=== PATIENT | female | born 1985 | race Two or more races ===

== ENCOUNTER 2022-01-25 19:03 | Inpatient (IN) | payer OTHER, SELFPAY ==
--- NOTE | ~2022-01-25 | CT_ITS ---
EXAMINATION: CT ABDOMEN AND PELVIS WITH CONTRAST CLINICAL INFORMATION: Fever despite antibiotics. COMPARISON: Previous CT of the abdomen and pelvis and pelvic ultrasound from earlier this month TECHNIQUE: Multidetector volumetric images were obtained from the superior aspect of the liver through the pubic symphysis following administration 85 mL of Omnipaque 350 intravenous contrast. Sagittal and coronal reformatted images were obtained on the technologist's workstation. Oral contrast: Yes This CT examination was performed using dose optimization techniques as appropriate, variously including the following: *Automated exposure control *Adjustment of mA and/or kV according to patient size (this includes techniques or standardized protocols for targeted exams where dose is matched to indication/reason for exam; i.e. extremities or head) *Use of iterative reconstruction technique DLP: 575 mGy-cm FINDINGS: LUNG BASES: The visualized lung bases are unremarkable. LIVER, GALLBLADDER, AND BILIARY TREE: The liver is normal in size, shape, and attenuation. No focal hepatic lesion or biliary ductal dilatation is present. The gallbladder is unremarkable with no evidence of radiopaque gallstones, gallbladder wall thickening, or obvious pericholecystic inflammatory changes. PANCREAS: Unremarkable. SPLEEN: Unremarkable. ADRENAL GLANDS: Unremarkable. KIDNEYS AND URETERS: There is increasing fullness of both collecting systems and proximal ureters. No stone. BLADDER: Unremarkable. GASTROINTESTINAL TRACT: Stool throughout the colon suggestive of constipation. The small and large bowel are otherwise unremarkable. The appendix is unremarkable. ABDOMINAL WALL: No significant hernia is appreciated. LYMPH NODES: Normal. VASCULAR: Unremarkable. PELVIC VISCERA: There is an IUD in the uterus. There are bilateral complex cystic adnexal lesions. There is question of right adnexal complex cystic area measuring up to 5.5 x 7.8 cm versus loculated fluid in the posterior cul-de-sac. This was seen greater in the left posterior cul-de-sac on 01/25/2022 exam favoring complex loculated ascites. There is diffuse stranding of the fat in the pelvis including the retroperitoneum and presacrals regions. Given history of fever this probably represents PID. OSSEOUS STRUCTURES: Unremarkable. CT/CT abdomen pelvis w IV con IMPRESSION: Bilateral complex cystic adnexal lesions and probable loculated complex fluid in the pelvis in the posterior cul-de-sac, now greater on the right. Diffuse fat stranding in the pelvis. This probably represents PID given history of fever. IUD in the uterus. Increasing prominence of the bilateral renal collecting systems and both ureters. Constipation. Fleischner guidelines were followed.
--- NOTE | ~2022-01-25 | US_ITS ---
EXAMINATION: US PELVIS CLINICAL INFORMATION: Hemorrhage in the pelvis. Question ruptured hemorrhagic cyst on CT COMPARISON: CT abdomen and pelvis 01/25/2022 TECHNIQUE: Ultrasound of the pelvis is performed using transabdominal transducers along with Doppler. Patient refused transvaginal ultrasound.. FINDINGS: Uterus: The uterus is anteverted, anteflexed and measures 10.8 cm in length, 6.2 mL in AP and 4.7 cm in transverse dimension. The double wall endometrial thickness is not visualized due to an echogenic IUD in place. The uterus is smooth in contour and has normal myometrial echogenicity. No visible fibroid. Adnexa: Right ovary measures 7.3 x 3.0 x 2.4 cm volume 27.3 mL. Small follicular cysts seen in the right ovary. The left ovary is not seen. There is moderate free fluid in and solid components likely hemorrhagic in the cul-de-sac. US/US pelvic complete IMPRESSION: 1. Unremarkable uterus and right ovary. 2. The left ovary is not seen. 3. Moderate free fluid in the cul-de-sac with solid components likely hemorrhage. Differential diagnosis includes ruptured left ovarian cyst, ruptured ectopic or severe PID. Correlate if patient is HCG positive. If patient has persistent pain without resolution, a expiratory laparoscopy can be performed at physician's discretion.
--- NOTE | ~2022-01-25 | CT_ITS ---
EXAMINATION: CT ABDOMEN AND PELVIS WITH CONTRAST CLINICAL INFORMATION: Pelvic abscess drain. Now presents with persistent pain COMPARISON: CT abdomen pelvis 01/31/2022. TECHNIQUE: Multidetector volumetric images were obtained from the superior aspect of the liver through the pubic symphysis following administration oral and 85 mL of Omnipaque 350 intravenous contrast. Sagittal and coronal reformatted images were obtained on the technologist's workstation. Oral contrast: No This CT examination was performed using dose optimization techniques as appropriate, variously including the following: *Automated exposure control *Adjustment of mA and/or kV according to patient size (this includes techniques or standardized protocols for targeted exams where dose is matched to indication/reason for exam; i.e. extremities or head) *Use of iterative reconstruction technique DLP: 932 mGy-cm FINDINGS: LUNG BASES: The lung bases are clear. Heart size is normal. LIVER, GALLBLADDER, AND BILIARY TREE: The liver is normal in size, shape, and attenuation. No focal hepatic lesion or biliary ductal dilatation is present. The gallbladder is unremarkable with no evidence of radiopaque gallstones, gallbladder wall thickening, or obvious pericholecystic inflammatory changes. PANCREAS: Unremarkable. SPLEEN: Unremarkable. ADRENAL GLANDS: Unremarkable. KIDNEYS AND URETERS: The kidneys are normal in size, shape, and attenuation. No hydronephrosis, hydroureter, or calculi seen. No perinephric stranding. There are bilateral extrarenal kidney pelvises. BLADDER: Unremarkable. GASTROINTESTINAL TRACT: There is oral contrast seen throughout the colon and small bowel loops without obstruction or extravasation of contrast. Appendix is not seen. ABDOMINAL WALL: No significant hernia is appreciated. LYMPH NODES: Normal. VASCULAR: Unremarkable. PELVIC VISCERA: Previously visualized large loculated complex predominantly right-sided cystic adnexa collection has resolved. There is a percutaneously placed right pelvic drainage catheter area has no fluid collection at this time. There is presacral soft tissues thickening. There is multiloculated small areas of hypodensities in the left adnexa likely loculated fluid or collection, similar to previous study. It has not increased. IUD has been removed.. OSSEOUS STRUCTURES: Unremarkable. CT/CT abdomen pelvis w IV con IMPRESSION: Complex cystic abscess collection the right adnexa and a right pelvis has completely been drained status post placement of percutaneous drainage catheter via right buttock. [id number] presacral soft tissue thickening and multiple small hypodense cystic areas in left adnexa are stable and unchanged. IUD has been removed. Fleischner guidelines were followed.
--- NOTE | ~2022-01-25 | CT_ITS ---
EXAMINATION: CT ABDOMEN AND PELVIS WITH CONTRAST CLINICAL INFORMATION: low abd pain N/V COMPARISON: None. TECHNIQUE: Multidetector volumetric imaging was performed from the superior aspect of the liver through the pubic symphysis following administration of 100 mL Omnipaque 300 intravenous contrast. Sagittal and coronal reformatted images were obtained on the technologist workstation.. This CT examination was performed using dose optimization techniques as appropriate, variously including the following: *Automated exposure control *Adjustment of mA and/or kV according to patient size (this includes techniques or standardized protocols for targeted exams where dose is matched to indication/reason for exam; i.e. extremities or head) *Use of iterative reconstruction technique DLP: 758 mGy-cm FINDINGS: LUNG BASES: The visualized lung bases are unremarkable. LIVER, GALLBLADDER, AND BILIARY TREE: The liver is normal in size, shape, and attenuation. No focal hepatic lesion or biliary ductal dilatation is present. The gallbladder is unremarkable with no evidence of radiopaque gallstones, gallbladder wall thickening, or obvious pericholecystic inflammatory changes. PANCREAS: Unremarkable. SPLEEN: Unremarkable. ADRENAL GLANDS: Unremarkable. KIDNEYS AND URETERS: The kidneys are normal in size, shape, and attenuation. No hydronephrosis, hydroureter, or calculi seen. No perinephric stranding. BLADDER: Decompressed GASTROINTESTINAL TRACT: Rectosigmoid colon is decompressed and difficult to evaluate. No obstructive changes to the bowel ABDOMINAL WALL: No significant hernia is appreciated. LYMPHOVASCULAR STRUCTURES: No lymphadenopathy. The aorta is unremarkable. PELVIC VISCERA: There is a complex heterogeneous attenuation to the enlarged 4.7 x 3.9 cm left ovary with surrounding complex fluid suggesting possibly ruptured hemorrhagic cyst. There is complex fluid in the dependent pelvis which measures slightly more than simple fluid also suggesting a possible hemorrhagic cyst rupture. Physiologic changes in the contralateral right ovary. This is retroverted and retroflexed with IUD in place OSSEOUS STRUCTURES: Unremarkable. CT/CT abdomen pelvis w IV con IMPRESSION: Heterogeneous attenuation to the enlarged left ovary with surrounding complex fluid suggesting a ruptured hemorrhagic cyst. There is also complex fluid in the dependent pelvis which measures slightly more than simple fluid which could be seen with a ruptured hemorrhagic cyst as well. Clinical correlation would be needed. This critical result was discussed with HIMA Mars at 01/25/2022 9:17 PM and it was ascertained that the content and urgency of the report was understood at the time of direct communication.
--- NOTE | ~2022-01-25 | CT_ITS ---
PROCEDURE: CT GUIDED ABSCESS DRAINAGE AND CATHETER PLACEMENT CLINICAL INFORMATION: Pelvic abscess. COMPARISON: None TECHNIQUE: Following explaining the CT fluoroscopy-guided pelvic abscess drainage and catheter placement procedure, and the benefits and risks, a written consent was obtained. The patient was placed in a semiprone position and preliminary CT imaging was obtained. An optimal site was selected, placing a marker along the right paramidline posterior buttock. An optimal marker was selected, marked on the skin and the area was cleaned and draped in the usual sterile manner with 2% chlorhexidine solution. 1% lidocaine was injected at the puncture site and subcutaneous region. Through a small skin incision, a 20-gauge Chiba needle was advanced into the right pelvic abscess under fluoroscopy. The stylet was withdrawn and a thin guidewire was advanced and the needle withdrawn. Over the guidewire, a 5-[place] dilator sheath was advanced and the dilator and the thin guidewire were removed. A 0.035 J-wire was advanced over the 5-[place] sheath and the sheath removed. A 10.5-[place] APD catheter was advanced over the guidewire. After obtaining images and revealing the catheter tip within the right abscess, the guidewire and the stiffener were withdrawn and a pigtail was formed. Repeat CT imaging was obtained for documentation. The catheter was connected to a suction bulb with a connecting cannula. The catheter was anchored to the skin with 3 0 nonabsorbable sutures. A sterile dressing was applied post procedure. Conscious sedation was provided by the anesthesia department. This CT examination was performed using dose optimization techniques as appropriate, variously including the following: *Automated exposure control *Adjustment of mA and/or kV according to patient size (this includes techniques or standardized protocols for targeted exams where dose is matched to indication/reason for exam; i.e. extremities or head) *Use of iterative reconstruction technique DLP: 787 mGy-cm FINDINGS: There is a moderate to large pelvic abscess, predominantly on the right side, extending to the left pelvis. A 10.5-[place] APD catheter was placed within the right pelvic abscess and connected to a suction bulb. Approximately 110 mL of clear pus was drained initially on the table from the bulb. Part of this pus was sent to the lab for Gram stain, culture and anaerobic culture. CT/CT guided drainage IMPRESSION: Successful CT fluoroscopy-guided drainage and subsequent placement of a 10.5 [place] APD catheter in the right pelvis.
--- NOTE | 2022-01-25 19:10 | ED.ABDPAIN ---
HPI - Abdominal Pain General Chief Complaint: Abdominal Pain Stated Complaint: abdominal pain/syncope Time Seen by Provider: 01/25/22 19:06 Source: patient Mode of arrival: wheelchair Limitations: no limitations History of Present Illness HPI narrative: 36 yo female here with lower abdominal pain x 5 days. Today worsened pain with vomiting. HPI limited as on arrival patient had a syncopal episode which was witnessed with no head strike. On my assessment she is actively vomiting, complaining of abdominal pain. Related Data Allergies Allergy/AdvReac Type Severity Reaction Status Date / Time strawberry [STRAWBERRY] Allergy Unknown ITCHING Unverified 11/25/19 15:46 Review of Systems Review of Systems Yes all other systems are reviewed and are negative Constitutional: Reports no additional constitutional complaints, Denies body ache(s), Denies chills, Denies fever(s), Denies headache(s) and Denies weakness Eyes: Reports no additional eye complaints and Denies change in vision Reports system reviewed and no additional complaints, except as documented, Reports dizziness, Denies headache(s), Denies nasal congestion, Denies nasal discharge and Denies neck pain Cardiovascular: Reports no additional cardiovascular complaints, Denies chest pain, Reports syncope, Denies leg edema and Denies dyspnea Respiratory: Reports no additional respiratory complaints, Denies cough and Denies dyspnea Gastrointestinal: Reports no additional gastrointestinal complaints, Reports abdominal pain, Reports diarrhea, Reports nausea and Reports vomiting Genitourinary: Reports no additional female genitourinary complaints and Denies urinary incontinence Musculoskeletal: Reports no additional musculoskeletal complaints, Denies back pain, Denies arthralgias, Denies joint swelling, Denies neck pain, Denies numbness and Denies tingling Skin/Breast: Reports system reviewed and no additional complaints, except as docu and Denies rash Reports system reviewed and no additional complaints, except as documented, Reports dizziness, Reports syncope, Denies headache(s), Denies numbness, Denies tingling and Denies weakness [facility] Past Medical History Attestation statement: The following information was validated with the patient. Source: old records reviewed and nursing notes reviewed Social History Social History Advance Directives: No Advance Directives Information Provided: No Physical Exam ED Vital Signs: Vital Signs - 24 hr 01/25/22 19:17 01/26/22 00:21 Temperature 97.9 F Pulse Rate 74 94 Respiratory Rate 16 16 Blood Pressure 119/65 160/79 H Pulse Oximetry 100 Oxygen Delivery Method Room Air BMI result Body Mass Index 26.6 Const Other: +in pain General: alert Orientation/consciousness: patient oriented x3 Limitations: no limitations HENAR Head: Yes normal to inspection Ears: hearing grossly normal bilaterally Eyes General: appearance normal, both eyes and all related structures Pupils: Equal, round and reactive pupils present Neck Neck: Yes normal visual inspection, Yes full ROM, Yes no lymphadenopathy and Yes no meningeal signs Chest Chest palpation & inspection: normal inspection of the chest Resp Effort & Inspection: normal respiratory effort Auscultation: clear to auscultation bilaterally Cardio Rate: regular rate Rhythm: regular rhythm Peripheral pulses: Peripheral pulses 2+ throughout GI Inspection: Yes normal to inspection Palpation (GI): Soft to palpation and Tenderness to palpation present (GI) in the LLQ and in the RLQ Other: LIBERTAD ovalle at bedside Pelvic exam is limited d/t pain. Pt barley able to tolerate speculum being inserted for specimens. Could not tolerate bimanual so exam is limited General: Yes no CVA tenderness External Female Exam: normal external appearance Speculum Exam - Vagina: normal appearance of the vagina Speculum Exam - Cervix: normal appearance of the cervix Back/Spine/Pelvis Back: no CVA tenderness Thoracic/Lumbar Spine: thoracic and lumbar spine normal to inspection Skin General skin exam: no rashes or lesions noted Neuro General: patient oriented x3, moves all extremities and no meningeal signs Cranial nerves: Yes Equal, round and reactive pupils present Cognition (Neuro): normal cognition Extrem General: Yes normal to inspection Course Course Course Narrative: CT shows MPRESSION: Heterogeneous attenuation to the enlarged left ovary with surrounding complex fluid suggesting a ruptured hemorrhagic cyst. There is also complex fluid in the dependent pelvis which measures slightly more than simple fluid which could be seen with a ruptured hemorrhagic cyst as well. Clinical correlation would be needed. ? -consider ectopic . Beta quant is negative. IUD in place. Likely ruptured hemorrhagic cyst. Mild microcytic anemia. No previous for comparison. Plan for pain control. Labs are stable. Reevaluation(s) Reevaluation #1: Patient has required morphine, toradol and dilaudid with continued pain. Will need admit for pain control. Will discuss with gynecology Reevaluation #2: 0100-Spoke to Dr Sheikh. Recommend obtain CBC now. Reevaluation #3: 0120-mildly decreased hemoglobin/hematocrit although not much different from previous. Spoke to gynecology. Recommended admit patient. Keep patient NPO. Repeat CBC in 6 hours. Continue with pain control. Additional Reevaluation(s): 0125-Spoke to medicine dr patel who accepted admission. Medications Administered Discontinued Medications Generic Name Dose Route Start Last Admin Trade Name Freq PRN Reason Stop Dose Admin Hydromorphone HCl 1 mg 01/25/22 22:53 01/25/22 22:59 Hydromorphone Hcl 1 Mg/Ml Syringe IVPUSH 01/25/22 22:54 1 mg ONCE ONE Administration Protocol Hydromorphone HCl 1 mg 01/26/22 00:13 01/26/22 00:18 Hydromorphone Hcl 1 Mg/Ml Syringe IVPUSH 01/26/22 00:14 1 mg ONCE ONE Administration Protocol Sodium Chloride 1,000 mls @ 999 mls/hr 01/25/22 19:15 01/26/22 01:16 Ns IV 01/25/22 20:15 Infused .Q1H1M HUNG Infusion Iohexol 100 ml 01/25/22 20:35 01/25/22 20:35 Iohexol 350 Mg/Ml 100 Ml Infus..Btl IV 01/25/22 20:36 100 ml ONCE ONE Administration Ketorolac Tromethamine 30 mg 01/25/22 21:34 01/25/22 22:15 Ketorolac Tromethamine 30 Mg/Ml Vial IVPUSH 01/25/22 21:35 30 mg ONCE ONE Administration Morphine Sulfate 4 mg 01/25/22 19:48 01/25/22 20:19 Morphine Sulfate 4 Mg/Ml Cartridge IVPUSH 01/25/22 19:49 4 mg ONCE ONE Administration Protocol Ondansetron HCl 4 mg 01/25/22 19:05 01/25/22 19:19 Ondansetron Hcl 4 Mg/2 Ml Vial IVPUSH 01/25/22 19:06 4 mg ONCE ONE Administration MDM - Abdominal Pain MDM Narrative Medical decision making narrative: 36-year-old female here with 5 days of lower abdominal pain with vomiting with a witnessed syncopal episode with no head strike or additional trauma. On exam tender to the left lower and right lower quadrant. Patient actively vomiting. History of present illness is limited due to patient's pain and vomiting status. Vitals are stable. Will check labs, UA, CT, COVID screen Consider syncopal episode secondary to orthostatic hypotension, ectopic , appendicitis, gastroenteritis Medical Records Attestation: I reviewed the patient's medical records. Lab Data Attestation: I reviewed the patient's lab results. Result diagrams: 01/26/22 01:02 01/25/22 19:16 Labs: Lab Results 01/25/22 01/25/22 01/25/22 Range/Units 19:16 19:16 19:16 WBC 11.6 H (4.8-10.8) X10*3/uL RBC 4.58 (4.20-5.50) X10*6/uL Hgb 9.1 L (12.0-16.0) g/dl Hct 32.8 L (37.0-47.0) % MCV 71.6 L (80.0-98.0) fL MCH 19.9 L (27.0-33.0) pg MCHC 27.7 L (31.0-35.0) g/dl RDW 17.2 H (11.0-16.0) % Plt Count 406 H (160-400) X10*3/uL MPV 9.1 L (9.4-12.3) fL Immature Gran % (Auto) 0.4 (0.0-0.4) % Neut % (Auto) 76.1 H (45-73) % Lymph % (Auto) 17.2 L (20-40) % [place] % (Auto) 5.2 (2-11) % Eos % (Auto) 0.8 (0-4) % Baso % (Auto) 0.3 (0-2) % Lymph # (Auto) 2.0 (1.2-4.9) X10*3/uL [place] # (Auto) 0.6 (0.1-1.2) X10*3/uL Eos # (Auto) 0.1 (0.0-0.4) X10*3/uL Baso # (Auto) 0.0 (0.0-0.2) X10*3/uL Abs Immat Gran (auto) 0.05 H (0.00-0.03) X10*3/uL Absolute Neuts (auto) 8.8 H (2.0-8.3) x10*3/uL Absolute Nucleated RBC 0.000 (0.0-0.012) X10*3/uL Nucleated RBC % (auto) 0.0 (0.0-0.2) /100WBC PT 13.0 (10.0-13.1) SEC INR 1.1 (0.9-1.1) Sodium 141 (135-145) mmol/L Potassium 3.6 (3.3-5.1) mmol/L Chloride 103 (96-108) mmol/L Carbon Dioxide 27 (22-29) mmol/L Anion Gap 15 (12-20) BUN 11 (9-16) mg/dL Creatinine 0.77 (0.5-1.4) mg/dL Estim Creat Clear Calc 117.6 Estimated GFR > 60 Random Glucose 112 (60-115) mg/dL Lactic Acid (0.5-2.0) mmol/L Calcium 9.2 (8.4-10.2) mg/dL Magnesium 1.8 (1.6-2.6) mg/dL Total Bilirubin 0.2 (0.0-1.0) mg/dL Direct Bilirubin < 0.2 (0.0-0.5) mg/dL AST 12 (5-31) U/L ALT 9 (0-31) U/L Alkaline Phosphatase 92 (39-117) U/L Total Protein 7.6 (6.5-8.0) g/dL Albumin 4.1 (3.5-5.0) g/dL Lipase 14 (8-78) U/L Beta HCG, Quant < 2 mIU/mL Urine Color Urine Appearance Urine pH (5.0-9.0) Ur Specific [place] (1.005-1.025) Urine Protein (Neg-Trace) mg/dL Urine Glucose (UA) (Negative) mg/dL Urine Ketones (Negative) mg/dL Urine Blood (Negative) Urine Nitrite (Negative) Ur Leukocyte Esterase (Negative) Urine RBC (0-2) /HPF Urine WBC (0-5) /HPF Ur Squamous Epith Cells (0-2) /HPF Urine Bacteria (None Seen) Hyaline Casts (0-2) /LPF Urine Opiates Screen (Not Detect) Urine Fentanyl Screen (Not Detect) Ur Barbiturates Screen (Not Detect) Ur Phencyclidine Scrn (Not Detect) Ur Amphetamines Screen (Not Detect) U Benzodiazepines Scrn (Not Detect) Urine Cocaine Screen (Not Detect) U Marijuana (THC) Screen (Not Detect) COVID-19 (TEJA) (Negative) COVID-19 Clin Com 01/25/22 01/25/22 01/25/22 Range/Units 19:16 19:17 22:37 WBC (4.8-10.8) X10*3/uL RBC (4.20-5.50) X10*6/uL Hgb (12.0-16.0) g/dl Hct (37.0-47.0) % MCV (80.0-98.0) fL MCH (27.0-33.0) pg MCHC (31.0-35.0) g/dl RDW (11.0-16.0) % Plt Count (160-400) X10*3/uL MPV (9.4-12.3) fL Immature Gran % (Auto) (0.0-0.4) % Neut % (Auto) (45-73) % Lymph % (Auto) (20-40) % [place] % (Auto) (2-11) % Eos % (Auto) (0-4) % Baso % (Auto) (0-2) % Lymph # (Auto) (1.2-4.9) X10*3/uL [place] # (Auto) (0.1-1.2) X10*3/uL Eos # (Auto) (0.0-0.4) X10*3/uL Baso # (Auto) (0.0-0.2) X10*3/uL Abs Immat Gran (auto) (0.00-0.03) X10*3/uL Absolute Neuts (auto) (2.0-8.3) x10*3/uL Absolute Nucleated RBC (0.0-0.012) X10*3/uL Nucleated RBC % (auto) (0.0-0.2) /100WBC PT (10.0-13.1) SEC INR (0.9-1.1) Sodium (135-145) mmol/L Potassium (3.3-5.1) mmol/L Chloride (96-108) mmol/L Carbon Dioxide (22-29) mmol/L Anion Gap (12-20) BUN (9-16) mg/dL Creatinine (0.5-1.4) mg/dL Estim Creat Clear Calc Estimated GFR Random Glucose (60-115) mg/dL Lactic Acid 2.0 (0.5-2.0) mmol/L Calcium (8.4-10.2) mg/dL Magnesium (1.6-2.6) mg/dL Total Bilirubin (0.0-1.0) mg/dL Direct Bilirubin (0.0-0.5) mg/dL AST (5-31) U/L ALT (0-31) U/L Alkaline Phosphatase (39-117) U/L Total Protein (6.5-8.0) g/dL Albumin (3.5-5.0) g/dL Lipase (8-78) U/L Beta HCG, Quant mIU/mL Urine Color Yellow Urine Appearance Clear Urine pH 6.5 (5.0-9.0) Ur Specific [place] >= 1.030 H (1.005-1.025) Urine Protein 100 (2+) H (Neg-Trace) mg/dL Urine Glucose (UA) Negative (Negative) mg/dL Urine Ketones Negative (Negative) mg/dL Urine Blood Moderate (2+) H (Negative) Urine Nitrite Negative (Negative) Ur Leukocyte Esterase Trace H (Negative) Urine RBC >20 H (0-2) /HPF Urine WBC 11-20 (0-5) /HPF Ur Squamous Epith Cells >20 (0-2) /HPF Urine Bacteria None Seen (None Seen) Hyaline Casts 0-2 (0-2) /LPF Urine Opiates Screen (Not Detect) Urine Fentanyl Screen (Not Detect) Ur Barbiturates Screen (Not Detect) Ur Phencyclidine Scrn (Not Detect) Ur Amphetamines Screen (Not Detect) U Benzodiazepines Scrn (Not Detect) Urine Cocaine Screen (Not Detect) U Marijuana (THC) Screen (Not Detect) COVID-19 (TEJA) Negative (Negative) COVID-19 Clin Com See Note 01/25/22 01/26/22 Range/Units 22:37 01:02 WBC 14.6 H (4.8-10.8) X10*3/uL RBC 4.23 (4.20-5.50) X10*6/uL Hgb 8.6 L (12.0-16.0) g/dl Hct 30.3 L (37.0-47.0) % MCV 71.6 L (80.0-98.0) fL MCH 20.3 L (27.0-33.0) pg MCHC 28.4 L (31.0-35.0) g/dl RDW 16.8 H (11.0-16.0) % Plt Count 368 (160-400) X10*3/uL MPV 9.3 L (9.4-12.3) fL Immature Gran % (Auto) 0.3 (0.0-0.4) % Neut % (Auto) 88.4 H (45-73) % Lymph % (Auto) 6.1 L (20-40) % [place] % (Auto) 4.9 (2-11) % Eos % (Auto) 0.1 (0-4) % Baso % (Auto) 0.2 (0-2) % Lymph # (Auto) 0.9 L (1.2-4.9) X10*3/uL [place] # (Auto) 0.7 (0.1-1.2) X10*3/uL Eos # (Auto) 0.0 (0.0-0.4) X10*3/uL Baso # (Auto) 0.0 (0.0-0.2) X10*3/uL Abs Immat Gran (auto) 0.04 H (0.00-0.03) X10*3/uL Absolute Neuts (auto) 12.9 H (2.0-8.3) x10*3/uL Absolute Nucleated RBC 0.000 (0.0-0.012) X10*3/uL Nucleated RBC % (auto) 0.0 (0.0-0.2) /100WBC PT (10.0-13.1) SEC INR (0.9-1.1) Sodium (135-145) mmol/L Potassium (3.3-5.1) mmol/L Chloride (96-108) mmol/L Carbon Dioxide (22-29) mmol/L Anion Gap (12-20) BUN (9-16) mg/dL Creatinine (0.5-1.4) mg/dL Estim Creat Clear Calc Estimated GFR Random Glucose (60-115) mg/dL Lactic Acid (0.5-2.0) mmol/L Calcium (8.4-10.2) mg/dL Magnesium (1.6-2.6) mg/dL Total Bilirubin (0.0-1.0) mg/dL Direct Bilirubin (0.0-0.5) mg/dL AST (5-31) U/L ALT (0-31) U/L Alkaline Phosphatase (39-117) U/L Total Protein (6.5-8.0) g/dL Albumin (3.5-5.0) g/dL Lipase (8-78) U/L Beta HCG, Quant mIU/mL Urine Color Urine Appearance Urine pH (5.0-9.0) Ur Specific [place] (1.005-1.025) Urine Protein (Neg-Trace) mg/dL Urine Glucose (UA) (Negative) mg/dL Urine Ketones (Negative) mg/dL Urine Blood (Negative) Urine Nitrite (Negative) Ur Leukocyte Esterase (Negative) Urine RBC (0-2) /HPF Urine WBC (0-5) /HPF Ur Squamous Epith Cells (0-2) /HPF Urine Bacteria (None Seen) Hyaline Casts (0-2) /LPF Urine Opiates Screen POSITIVE H (Not Detect) Urine Fentanyl Screen Not Detected (Not Detect) Ur Barbiturates Screen Not Detected (Not Detect) Ur Phencyclidine Scrn Not Detected (Not Detect) Ur Amphetamines Screen Not Detected (Not Detect) U Benzodiazepines Scrn Not Detected (Not Detect) Urine Cocaine Screen POSITIVE H (Not Detect) U Marijuana (THC) Screen Not Detected (Not Detect) COVID-19 (TEJA) (Negative) COVID-19 Clin Com Imaging Data CT scan - abdomen: Attestation: I personally reviewed and interpreted this imaging study as follows: Radiologist's impression: FINDINGS: LUNG BASES: The visualized lung bases are unremarkable.? LIVER, GALLBLADDER, AND BILIARY TREE: The liver is normal in size, shape, and attenuation. No focal hepatic lesion or biliary ductal dilatation is present. The gallbladder is unremarkable with no evidence of radiopaque gallstones, gallbladder wall thickening, or obvious pericholecystic inflammatory changes.? PANCREAS: Unremarkable.? SPLEEN: Unremarkable.? ADRENAL GLANDS: Unremarkable.? KIDNEYS AND URETERS: The kidneys are normal in size, shape, and attenuation. No hydronephrosis, hydroureter, or calculi seen. No perinephric stranding. ? BLADDER: Decompressed? GASTROINTESTINAL TRACT: Rectosigmoid colon is decompressed and difficult to evaluate. No obstructive changes to the bowel? ABDOMINAL WALL: No significant hernia is appreciated.? LYMPHOVASCULAR STRUCTURES: No lymphadenopathy. The aorta is unremarkable.? PELVIC VISCERA: There is a complex heterogeneous attenuation to the enlarged 4.7 x 3.9 cm left ovary with surrounding complex fluid suggesting possibly ruptured hemorrhagic cyst. There is complex fluid in the dependent pelvis which measures slightly more than simple fluid also suggesting a possible hemorrhagic cyst rupture. Physiologic changes in the contralateral right ovary. This is retroverted and retroflexed with IUD in place OSSEOUS STRUCTURES: Unremarkable.? CT/CT abdomen pelvis w IV con IMPRESSION: Heterogeneous attenuation to the enlarged left ovary with surrounding complex fluid suggesting a ruptured hemorrhagic cyst. There is also complex fluid in the dependent pelvis which measures slightly more than simple fluid which could be seen with a ruptured hemorrhagic cyst as well. Clinical correlation would be needed. ? ECG Data Attestation: I personally reviewed and interpreted this ECG as follows: ECG interpretation date: 01/26/22 ECG interpretation time: 00:56 Interpretation: Normal sinus rhythm with a rate 85, normal SC, normal QRS, normal QT Discharge Plan Discharge Clinical Impression: Ruptured ovarian cyst, Anemia Patient Disposition: Admitted As Inpatient
[2022-01-25 19:17] VITALS: BP 119/65; PULSE 74; RESP 16; TEMP 36.6; O2SAT 100; BMI 26.6
[2022-01-25] MEDS: ondansetron HCL 4 MG/2 ML VIAL IVPUSH (19:19)
[2022-01-25] MEDS: 0.9 % Sodium Chloride 1,000 ML 999 ML IV (19:19)
[2022-01-25 19:25] LABS: MANUAL DIFF FLAG NO
[2022-01-25 19:26] LABS: Basophils Percent Auto 0.3 % (0-2); Eosinophils Absolute Auto 0.1 X10*3/uL (0.0-0.4); Eosinophils Percent Auto 0.8 % (0-4); Hematocrit 32.8 % (37.0-47.0); Hemoglobin 9.1 g/dl (12.0-16.0); Imm Gran Abs Auto 0.05 X10*3/uL (0.00-0.03); Imm Gran Pct Auto 0.4 % (0.0-0.4); Lymphocytes Percent Auto 17.2 % (20-40); Mean Corpuscular HGB Conc 27.7 g/dl (31.0-35.0); Mean Corpuscular Hemoglobin 19.9 pg (27.0-33.0); Mean Corpuscular Volume 71.6 fL (80.0-98.0); Mean Platelet Volume 9.1 fL (9.4-12.3); Monocytes Absolute Auto 0.6 X10*3/uL (0.1-1.2); Monocytes Percent Auto 5.2 % (2-11); Neutrophils Absolute Auto 8.8 x10*3/uL (2.0-8.3); Neutrophils Percent Auto 76.1 % (45-73); Platelet Count 406 X10*3/uL (160-400); Red Blood Count 4.58 X10*6/uL (4.20-5.50); Red Cell Distribution Width 17.2 % (11.0-16.0); White Blood Count 11.6 X10*3/uL (4.8-10.8)
[2022-01-25 19:32] LABS: INTERNATIONAL NORM RATIO 1.1 (0.9-1.1)
[2022-01-25 19:39] LABS: COVID-19 Test Negative (Negative)
[2022-01-25 20:04] LABS: Alanine Aminotransferase 9 U/L (0-31); Albumin Level 4.1 g/dL (3.5-5.0); Alkaline Phosphatase 92 U/L (39-117); Anion Gap 15 (12-20); Aspartate Amino Transferase 12 U/L (5-31); Bilirubin Direct < 0.2 mg/dL (0.0-0.5); Bilirubin Total 0.2 mg/dL (0.0-1.0); Blood Urea Nitrogen 11 mg/dL (9-16); Calcium 9.2 mg/dL (8.4-10.2); Carbon Dioxide 27 mmol/L (22-29); Chloride 103 mmol/L (96-108); Creatinine Clr Calc Pharmacy 117.6; Estimated Glomerular Filt Rate > 60; Glucose Random 112 mg/dL (60-115); HCG Quantitative < 2 mIU/mL; Lipase 14 U/L (8-78); Magnesium 1.8 mg/dL (1.6-2.6); Potassium 3.6 mmol/L (3.3-5.1); Sodium 141 mmol/L (135-145); Total Protein 7.6 g/dL (6.5-8.0)
[2022-01-25] MEDS: Morphine Sulfate 4 MG/ML CARTRIDGE IVPUSH (20:19)
[2022-01-25] MEDS: iohexoL 350 MG/ML 100 ML INFUS..BTL IV (20:35)
[2022-01-25] MEDS: Ketorolac Tromethamine 30 MG/ML VIAL IVPUSH (22:15)
[2022-01-25 22:42] LABS: Appearance Urine Clear; Color Urine Yellow; Glucose Urine UA Negative (Negative); Leukocyte Esterase Urine Trace (Negative); Nitrite Urine Negative (Negative); PH 6.5 (5.0-9.0); Specific Gravity - Urine >= 1.030 (1.005-1.025); UMIC TRIGGER UACC YES; Urine Blood Moderate (2+) (Negative); Urine Ketones Negative (Negative); Urine Protein 100 (2+) mg/dL (Neg-Trace)
[2022-01-25 22:54] LABS: Amphetamine Screen Urine Not Detected (Not Detect); Bacteria Urine None Seen (None Seen); Barbiturates, Urine Not Detected (Not Detect); Benzodiazepines Screen Urine Not Detected (Not Detect); Cannabinoid Screen Urine Not Detected (Not Detect); Cocaine Screen Urine POSITIVE (Not Detect); Fentanyl, urine Not Detected (Not Detect); Hyaline Casts Urine 0-2 /LPF (0-2); Opiate Screen Urine POSITIVE (Not Detect); Phencyclidine Screen Urine Not Detected (Not Detect); RBC Urine >20 /HPF (0-2); Squamous Epithelial Cell Urine >20 /HPF (0-2); UACC Culture Trigger YES
[2022-01-25] MEDS: HYDROmorphone HCl 1 MG/ML SYRINGE IVPUSH (22:59)
[2022-01-26] VITALS (7 sets, daily range): BP systolic 114–160; BP diastolic 63–79; PULSE 73–96; RESP 16–20; TEMP 36.4–39.6; O2SAT 95–99
[2022-01-26] MEDS: HYDROmorphone HCl 1 MG/ML SYRINGE IVPUSH (00:18)
--- NOTE | 2022-01-26 00:24 | ECG_ITS ---
Test Reason : ABD PAIN Blood Pressure : / mmHG Vent. Rate : 085 BPM Atrial Rate : 085 BPM P-R Int : 172 ms QRS Dur : 094 ms QT Int : 358 ms P-R-T Axes : 054 061 031 degrees QTc Int : 426 ms Poor data quality, interpretation may be adversely affected Normal sinus rhythm Nonspecific ST abnormality Inferior leads Nonspecific T wave abnormality Anterolateral leads Abnormal ECG When compared with ECG of 26-AUG-2011 15:24, Heart rate has increased Nonspecific T wave abnormality, worse in Inferior leads Nonspecific T wave abnormality now evident in Lateral leads Referred By: Zully Tyson Electronically Signed By:ROMY COLLADO MD
--- NOTE | 2022-01-26 00:58 | PM.GYNCN ---
[facility] - CN: HPI Data of Consult Consult date: 01/26/22 Primary Care Provider: Unknown Physician Consult Narrative Narrative: I was consulted on Chloé Damon who is a 36 year old female who presented emergency room with lower abdominal pain for the last 5 days but today the patient had an acute episode of worsening of pain associated with vomiting. The patient had a syncopal episode in the waiting room which was witnessed with no head strike. On arrival her vital signs were stable with no hypotension or tachycardia, H&H was 9.1/32.8, hCG was negative. Repeat H&H was 8.6/30.3, 6 hours from the initial H&H. GC/CT, BV panel and Trichomonas collected The patient received IV hydration and multiple doses of narcotic analgesics in the emergency cc:: CC: OB [facility] Past Medical History Medical History (Updated 01/26/22 @ 02:33 by Laura Marie MD) Cocaine abuse Social History Social History Advance Directives: No Advance Directives Information Provided: No Meds Allergies Allergy/AdvReac Type Severity Reaction Status Date / Time strawberry [STRAWBERRY] Allergy Unknown ITCHING Unverified 11/25/19 15:46 [facility] Physical Exam Vitals Vital signs: Temp Pulse Resp BP Pulse Ox O2 Del Method 97.9 F 94 16 160/79 H 100 01/25/22 19:17 01/26/22 00:21 01/26/22 00:21 01/26/22 00:21 01/25/22 19:17 01/25/22 19:17 BMI result Body Mass Index 26.6 Additional Comments: Physical exam reported by Zully Tyson NP the following: Abdominal exam: Soft to palpation right and left lower quadrant Tenderness to palpation Pelvic exam was limited due to patient's pain [facility] - Results Labs CBC & Chem 7: 01/26/22 06:11 01/26/22 06:11 Labs: Short CBC 01/25/22 Range/Units 19:16 WBC 11.6 H (4.8-10.8) X10*3/uL Hgb 9.1 L (12.0-16.0) g/dl Hct 32.8 L (37.0-47.0) % Plt Count 406 H (160-400) X10*3/uL BMP 01/25/22 19:16 Sodium 141 Potassium 3.6 Chloride 103 Carbon Dioxide 27 BUN 11 Creatinine 0.77 Calcium 9.2 Liver Function 01/25/22 Range/Units 19:16 Total Bilirubin 0.2 (0.0-1.0) mg/dL Direct Bilirubin < 0.2 (0.0-0.5) mg/dL AST 12 (5-31) U/L ALT 9 (0-31) U/L Alkaline Phosphatase 92 (39-117) U/L Albumin 4.1 (3.5-5.0) g/dL Urine 01/25/22 Range/Units 22:37 Urine Color Yellow Urine Appearance Clear Urine pH 6.5 (5.0-9.0) Ur Specific [place] >= 1.030 H (1.005-1.025) Urine Protein 100 (2+) H (Neg-Trace) mg/dL Urine Glucose (UA) Negative (Negative) mg/dL Imaging CT scan - pelvis: Radiologist's impression: ITS Impressions Abdomen/Pelvis CT 01/25/22 20:39 IMPRESSION: Heterogeneous attenuation to the enlarged left ovary with surrounding complex fluid suggesting a ruptured hemorrhagic cyst. There is also complex fluid in the dependent pelvis which measures slightly more than simple fluid which could be seen with a ruptured hemorrhagic cyst as well. Clinical correlation would be needed. This critical result was discussed with HIMA Mars at 01/25/2022 9:17 PM and it was ascertained that the content and urgency of the report was understood at the time of direct communication. Assessment and Plan (1) Ruptured ovarian cyst: Status: Acute Plan Repeat H&H 6 hours from initial H&H showed dilutional effect secondary IV hydration was no significant drop, therefore, I recommend : pain management p.r.n., NPO, H&H in 6 hours. If H&H in 6 hours is stable and pain resolves/improves markedly, the patient could be discharged home; if there is any change in clinical situation or if the patient's vital signs become unstable overnight, or any significant drop in H&H in a.m. , will consider laparoscopic control of bleeding from ovarian cyst /ovarian cystectomy. I spent a total of 20 minutes reviewing the chart, communicating to the emergency room provider and documenting in the medical record
[2022-01-26 01:06] LABS: Basophils Percent Auto 0.2 % (0-2); Eosinophils Percent Auto 0.1 % (0-4); Hematocrit 30.3 % (37.0-47.0); Hemoglobin 8.6 g/dl (12.0-16.0); Imm Gran Abs Auto 0.04 X10*3/uL (0.00-0.03); Imm Gran Pct Auto 0.3 % (0.0-0.4); Lymphocytes Absolute Auto 0.9 X10*3/uL (1.2-4.9); Lymphocytes Percent Auto 6.1 % (20-40); MANUAL DIFF FLAG NO; Mean Corpuscular HGB Conc 28.4 g/dl (31.0-35.0); Mean Corpuscular Hemoglobin 20.3 pg (27.0-33.0); Mean Corpuscular Volume 71.6 fL (80.0-98.0); Mean Platelet Volume 9.3 fL (9.4-12.3); Monocytes Absolute Auto 0.7 X10*3/uL (0.1-1.2); Monocytes Percent Auto 4.9 % (2-11); Neutrophils Absolute Auto 12.9 x10*3/uL (2.0-8.3); Neutrophils Percent Auto 88.4 % (45-73); Platelet Count 368 X10*3/uL (160-400); Red Blood Count 4.23 X10*6/uL (4.20-5.50); Red Cell Distribution Width 16.8 % (11.0-16.0); White Blood Count 14.6 X10*3/uL (4.8-10.8)
[2022-01-26] MEDS: HYDROmorphone HCl 0.5 MG/0.5 ML SYRINGE IVPUSH (01:49)
[2022-01-26] MEDS: ondansetron HCL 4 MG/2 ML VIAL IVPUSH (02:08)
--- NOTE | 2022-01-26 02:09 | P.HPHOSP_ITS ---
History of Present Illness Date of Service: 01/26/22 Chief Complaint: Abdominal Pain This is a 36-year-old female, not on prescription medications with pertinent history of cocaine use disorder, who presents to the emergency department for evaluation of abdominal pain. Patient states she has had left-sided abdominal pain for the last 5 days, progressive, constant and nonradiating. She had acute worsening of the pain today with associated nausea and nonbloody emesis. Patient denies similar pain in the past. Patient initially denied use of drugs but later agreed to using cocaine at a [facility] about 4 days ago. Also took Percocet prior to coming here for pain. Patient denies fever, chest discomfort, shortness of breath, palpitations, changes in urinary or bowel habits In the ER, imaging was concerning for ruptured hemorrhagic cyst. Camera Systems Engineer was consulted who evaluated the patient and recommended admission to hospitalist team for pain control. Review of Systems Constitutional: Constitutional: Reports chills Cardiovascular: Cardiovascular: Reports no additional cardiovascular complaints Respiratory: Respiratory: Reports no additional respiratory complaints Gastrointestinal: Gastrointestinal: Reports abdominal pain PMFSH Medical History (Updated 01/26/22 @ 02:33 by Laura Marie MD) Cocaine abuse Social History Advance Directives: No Advance Directives Information Provided: No Meds Allergies Allergy/AdvReac Type Severity Reaction Status Date / Time strawberry [STRAWBERRY] Allergy Unknown ITCHING Unverified 11/25/19 15:46 Active Medications: Current Medications Acetaminophen (Acetaminophen 325 Mg Tablet) 650 mg PO Q6H PRN PRN Reason: Pain, Mild (Pain Scale 1-3) Melatonin (Melatonin 3 Mg Tablet) 6 mg PO BEDTIME PRN PRN Reason: Insomnia Morphine Sulfate (Morphine Sulfate 4 Mg/Ml Cartridge) 4 mg IVPUSH Q4H PRN; Protocol PRN Reason: Pain, Severe (Pain Scale 7-10) Ondansetron HCl (Ondansetron Hcl 4 Mg/2 Ml Vial) 4 mg IVPUSH Q8H PRN PRN Reason: Nausea and Vomiting Last Admin: 01/26/22 02:08 Dose: 4 mg Sodium Chloride (0.9 % Sodium Chloride Flush 3 Ml Syringe) 3 ml IVFLUSH QSHIFT [facility] Physical Exam Vital Signs and Narrative: Vital Signs: Last Vital Signs Temp 97.9 F 01/25/22 19:17 Pulse 94 01/26/22 00:21 Resp 16 01/26/22 00:21 BP 160/79 H 01/26/22 00:21 Pulse Ox 100 01/25/22 19:17 O2 Del Method 01/25/22 19:17 BMI result Body Mass Index 26.6 Middle-aged female lying in bed in no distress Neck supple, no JVD Regular rate and rhythm, S1-S2 heard Regular breath sounds bilaterally, no wheezing or crackles appreciated Abdomen soft with left lower quadrant tenderness with mild guarding, no rigidity Patient is awake, alert and oriented to self, place, time and person ; no focal motor deficit Psych: Normal mood No pedal edema Results Labs CBC and Chem 7: 01/26/22 01:02 01/25/22 19:16 Labs: Laboratory Results - last 24 hr 01/25/22 01/25/22 01/25/22 19:16 19:16 19:16 MCV 71.6 L MCH 19.9 L MCHC 27.7 L RDW 17.2 H Plt Count 406 H MPV 9.1 L Immature Gran % (Auto) 0.4 Neut % (Auto) 76.1 H Lymph % (Auto) 17.2 L [place] % (Auto) 5.2 Eos % (Auto) 0.8 Baso % (Auto) 0.3 Lymph # (Auto) 2.0 [place] # (Auto) 0.6 Eos # (Auto) 0.1 Baso # (Auto) 0.0 Abs Immat Gran (auto) 0.05 H Absolute Neuts (auto) 8.8 H Absolute Nucleated RBC 0.000 Nucleated RBC % (auto) 0.0 PT 13.0 INR 1.1 Anion Gap 15 Estim Creat Clear Calc 117.6 Estimated GFR > 60 Random Glucose 112 Lactic Acid Calcium 9.2 Magnesium 1.8 Total Bilirubin 0.2 Direct Bilirubin < 0.2 AST 12 ALT 9 Alkaline Phosphatase 92 Total Protein 7.6 Albumin 4.1 Lipase 14 Beta HCG, Quant < 2 Urine Color Urine Appearance Urine pH Ur Specific [place] Urine Protein Urine Glucose (UA) Urine Ketones Urine Blood Urine Nitrite Ur Leukocyte Esterase Urine RBC Urine WBC Ur Squamous Epith Cells Urine Bacteria Hyaline Casts Urine Opiates Screen Urine Fentanyl Screen Ur Barbiturates Screen Ur Phencyclidine Scrn Ur Amphetamines Screen U Benzodiazepines Scrn Urine Cocaine Screen U Marijuana (THC) Screen COVID-19 (TEJA) COVID-19 Clin Com 01/25/22 01/25/22 01/25/22 19:16 19:17 22:37 MCV MCH MCHC RDW Plt Count MPV Immature Gran % (Auto) Neut % (Auto) Lymph % (Auto) [place] % (Auto) Eos % (Auto) Baso % (Auto) Lymph # (Auto) [place] # (Auto) Eos # (Auto) Baso # (Auto) Abs Immat Gran (auto) Absolute Neuts (auto) Absolute Nucleated RBC Nucleated RBC % (auto) PT INR Anion Gap Estim Creat Clear Calc Estimated GFR Random Glucose Lactic Acid 2.0 Calcium Magnesium Total Bilirubin Direct Bilirubin AST ALT Alkaline Phosphatase Total Protein Albumin Lipase Beta HCG, Quant Urine Color Yellow Urine Appearance Clear Urine pH 6.5 Ur Specific [place] >= 1.030 H Urine Protein 100 (2+) H Urine Glucose (UA) Negative Urine Ketones Negative Urine Blood Moderate (2+) H Urine Nitrite Negative Ur Leukocyte Esterase Trace H Urine RBC >20 H Urine WBC 11-20 Ur Squamous Epith Cells >20 Urine Bacteria None Seen Hyaline Casts 0-2 Urine Opiates Screen Urine Fentanyl Screen Ur Barbiturates Screen Ur Phencyclidine Scrn Ur Amphetamines Screen U Benzodiazepines Scrn Urine Cocaine Screen U Marijuana (THC) Screen COVID-19 (TEJA) Negative COVID-19 Clin Com See Note 01/25/22 01/26/22 22:37 01:02 MCV 71.6 L MCH 20.3 L MCHC 28.4 L RDW 16.8 H Plt Count 368 MPV 9.3 L Immature Gran % (Auto) 0.3 Neut % (Auto) 88.4 H Lymph % (Auto) 6.1 L [place] % (Auto) 4.9 Eos % (Auto) 0.1 Baso % (Auto) 0.2 Lymph # (Auto) 0.9 L [place] # (Auto) 0.7 Eos # (Auto) 0.0 Baso # (Auto) 0.0 Abs Immat Gran (auto) 0.04 H Absolute Neuts (auto) 12.9 H Absolute Nucleated RBC 0.000 Nucleated RBC % (auto) 0.0 PT INR Anion Gap Estim Creat Clear Calc Estimated GFR Random Glucose Lactic Acid Calcium Magnesium Total Bilirubin Direct Bilirubin AST ALT Alkaline Phosphatase Total Protein Albumin Lipase Beta HCG, Quant Urine Color Urine Appearance Urine pH Ur Specific [place] Urine Protein Urine Glucose (UA) Urine Ketones Urine Blood Urine Nitrite Ur Leukocyte Esterase Urine RBC Urine WBC Ur Squamous Epith Cells Urine Bacteria Hyaline Casts Urine Opiates Screen POSITIVE H Urine Fentanyl Screen Not Detected Ur Barbiturates Screen Not Detected Ur Phencyclidine Scrn Not Detected Ur Amphetamines Screen Not Detected U Benzodiazepines Scrn Not Detected Urine Cocaine Screen POSITIVE H U Marijuana (THC) Screen Not Detected COVID-19 (TEJA) COVID-19 Clin Com Imaging Radiologist's Impressions: Impressions Abdomen/Pelvis CT 01/25/22 20:39 IMPRESSION: Heterogeneous attenuation to the enlarged left ovary with surrounding complex fluid suggesting a ruptured hemorrhagic cyst. There is also complex fluid in the dependent pelvis which measures slightly more than simple fluid which could be seen with a ruptured hemorrhagic cyst as well. Clinical correlation would be needed. This critical result was discussed with HIMA Mars at 01/25/2022 9:17 PM and it was ascertained that the content and urgency of the report was understood at the time of direct communication. Assessment and Plan (1) Ruptured ovarian cyst: Status: Acute (2) Cocaine abuse: Status: Acute (3) Iron deficiency: Status: Acute Plan This is a 36-year-old female, not on prescription medications with pertinent history of cocaine use disorder, who presents to the emergency department for evaluation of abdominal pain. #. Ruptured hemorrhagic cyst -will admit patient and initiate IV opioid p.r.n. for pain control and IV Zofran p.r.n. for nausea. Repeat H&H in a.m. Resuscitated with IV fluids in ER -Dr Sheikh, Camera Systems Engineer consulted from the ER, appreciate recommendations. May need laparoscopic evaluation if clinical condition worsens. Will keep patient NPO -HCG negative. GC/CT, BV panel and Trichomonas pending. #. Cocaine use disorder -CARE team and addiction team consulted #. Iron deficiency -initiate IV iron while in the hospital. #. Reactive leukocytosis DVT prophylaxis: None Full code NPO Quality Stroke Does the patient have a stroke diagnosis?: No VTE Prior VTE?: No VTE Risk Level:: Medical - low VTE Device Contraindication: Treatment Not Indicated VTE Drug Contraindication: Treatment Not Indicated
--- NOTE | 2022-01-26 02:39 | PC.NURSE ---
Pt. alert and oriented. Pt. was able to ambulate short distance to bathroom. Pt. c/o pain at 12/17. Pt. medicated with medication per MAY. Pt. vomited small amount of yellow fluid. Pt. medication with zofran per MAY. Pt. currently resting in bed at this time.
[2022-01-26] MEDS: Morphine Sulfate 4 MG/ML CARTRIDGE IVPUSH ×4 (03:31→20:38)
[2022-01-26 06:19] LABS: Basophils Percent Auto 0.1 % (0-2); Hematocrit 30.3 % (37.0-47.0); Hemoglobin 8.6 g/dl (12.0-16.0); Lymphocytes Absolute Auto 0.7 X10*3/uL (1.2-4.9); Lymphocytes Percent Auto 3.1 % (20-40); MANUAL DIFF FLAG SCAN; Mean Corpuscular HGB Conc 28.4 g/dl (31.0-35.0); Mean Corpuscular Hemoglobin 19.9 pg (27.0-33.0); Mean Platelet Volume 9.4 fL (9.4-12.3); Monocytes Absolute Auto 0.9 X10*3/uL (0.1-1.2); Monocytes Percent Auto 4.5 % (2-11); Neutrophils Percent Auto 91.3 % (45-73); Platelet Count 358 X10*3/uL (160-400); Red Blood Count 4.33 X10*6/uL (4.20-5.50); Red Cell Distribution Width 16.7 % (11.0-16.0); SCAN SMEAR FLAG 1; White Blood Count 20.8 X10*3/uL (4.8-10.8)
[2022-01-26 06:34] LABS: Anion Gap 14 (12-20); Blood Urea Nitrogen 9 mg/dL (9-16); Calcium 8.6 mg/dL (8.4-10.2); Carbon Dioxide 25 mmol/L (22-29); Chloride 104 mmol/L (96-108); Creatinine Clr Calc Pharmacy 135.2; Estimated Glomerular Filt Rate > 60; Glucose Random 117 mg/dL (60-115); Iron 9 mcg/dL (30-160); Percent Iron Saturation 3 % (15-50); Potassium 3.8 mmol/L (3.3-5.1); Sodium 139 mmol/L (135-145); Total Iron Binding Capacity 324 mcg/dL (228-428); Unsaturated Iron Binding 315 ug/dL
[2022-01-26 06:36] LABS: SLIDE REVIEW VERIFIED
[2022-01-26] MEDS: 0.9 % Sodium Chloride Flush 3 ML SYRINGE IVFLUSH ×2 (08:03→20:41)
--- NOTE | 2022-01-26 08:49 | PHA.MEDREC ---
Pharmacy Consult ? Medication Reconciliation Pharmacy has completed the medication reconciliation.
[2022-01-26] MEDS: Iron Sucrose Complex 200 MG in 0.9 % Sodium Chloride 100 ML 440 MG IV (09:31)
--- NOTE | 2022-01-26 09:35 | PC.NURSE ---
pt sleeping, wakes to verbal stimulus, iv iron started per order, pt stated she has 9/10 abd pain but immediately falls back to sleep after asking, vitals have been stable, pure wick intact, call fall within reach, will continue to monitor
--- NOTE | 2022-01-26 09:51 | PM.GYNPNOP ---
OIL REFINERY PROCESS TECHNICIAN - Subjective Subjective Date of Service: 01/26/22 Interval history: Doing well , still complaining of abdominal pain, NPO, no vomiting. The patient received morphine sulfate 08:00, previous analgesics does was at 02:00 [employer] Physical Exam Vitals Vital signs: Temp Pulse Resp BP Pulse Ox O2 Del Method 97.5 F 88 18 121/71 98 01/26/22 07:53 01/26/22 08:25 01/26/22 08:25 01/26/22 08:25 01/26/22 08:25 01/26/22 08:25 BMI result Body Mass Index 26.6 Abdomen Auscultation/Inspection/Palpation: Normal bowel sounds, Soft and Other (Minimal tenderness diffuse, no guarding or rebound) OIL REFINERY PROCESS TECHNICIAN - Prog Note: Results Labs CBC & Chem 7: 01/26/22 06:11 01/26/22 06:11 Labs: Laboratory Results - last 24 hr 01/25/22 01/25/22 01/25/22 19:16 19:16 19:16 WBC 11.6 H RBC 4.58 Hgb 9.1 L Hct 32.8 L MCV 71.6 L MCH 19.9 L MCHC 27.7 L RDW 17.2 H Plt Count 406 H MPV 9.1 L Immature Gran % (Auto) 0.4 Neut % (Auto) 76.1 H Lymph % (Auto) 17.2 L [place] % (Auto) 5.2 Eos % (Auto) 0.8 Baso % (Auto) 0.3 Lymph # (Auto) 2.0 [place] # (Auto) 0.6 Eos # (Auto) 0.1 Baso # (Auto) 0.0 Abs Immat Gran (auto) 0.05 H Absolute Neuts (auto) 8.8 H Absolute Nucleated RBC 0.000 Nucleated RBC % (auto) 0.0 Smear Tech's Comments PT 13.0 INR 1.1 Sodium 141 Potassium 3.6 Chloride 103 Carbon Dioxide 27 Anion Gap 15 BUN 11 Creatinine 0.77 Estim Creat Clear Calc 117.6 Estimated GFR > 60 Random Glucose 112 Lactic Acid Calcium 9.2 Magnesium 1.8 Iron TIBC % Saturation Unsat Iron Binding Total Bilirubin 0.2 Direct Bilirubin < 0.2 AST 12 ALT 9 Alkaline Phosphatase 92 Total Protein 7.6 Albumin 4.1 Lipase 14 Beta HCG, Quant < 2 Urine Color Urine Appearance Urine pH Ur Specific [place] Urine Protein Urine Glucose (UA) Urine Ketones Urine Blood Urine Nitrite Ur Leukocyte Esterase Urine RBC Urine WBC Ur Squamous Epith Cells Urine Bacteria Hyaline Casts Urine Opiates Screen Urine Fentanyl Screen Ur Barbiturates Screen Ur Phencyclidine Scrn Ur Amphetamines Screen U Benzodiazepines Scrn Urine Cocaine Screen U Marijuana (THC) Screen COVID-19 (TEJA) COVID-19 Clin Com 01/25/22 01/25/22 01/25/22 19:16 19:17 22:37 WBC RBC Hgb Hct MCV MCH MCHC RDW Plt Count MPV Immature Gran % (Auto) Neut % (Auto) Lymph % (Auto) [place] % (Auto) Eos % (Auto) Baso % (Auto) Lymph # (Auto) [place] # (Auto) Eos # (Auto) Baso # (Auto) Abs Immat Gran (auto) Absolute Neuts (auto) Absolute Nucleated RBC Nucleated RBC % (auto) Smear Tech's Comments PT INR Sodium Potassium Chloride Carbon Dioxide Anion Gap BUN Creatinine Estim Creat Clear Calc Estimated GFR Random Glucose Lactic Acid 2.0 Calcium Magnesium Iron TIBC % Saturation Unsat Iron Binding Total Bilirubin Direct Bilirubin AST ALT Alkaline Phosphatase Total Protein Albumin Lipase Beta HCG, Quant Urine Color Yellow Urine Appearance Clear Urine pH 6.5 Ur Specific Hed[place] >= 1.030 H Urine Protein 100 (2+) H Urine Glucose (UA) Negative Urine Ketones Negative Urine Blood Moderate (2+) H Urine Nitrite Negative Ur Leukocyte Esterase Trace H Urine RBC >20 H Urine WBC 11-20 Ur Squamous Epith Cells >20 Urine Bacteria None Seen Hyaline Casts 0-2 Urine Opiates Screen Urine Fentanyl Screen Ur Barbiturates Screen Ur Phencyclidine Scrn Ur Amphetamines Screen U Benzodiazepines Scrn Urine Cocaine Screen U Marijuana (THC) Screen COVID-19 (TEJA) Negative COVID-19 Clin Com See Note 01/25/22 01/26/22 01/26/22 22:37 01:02 06:11 WBC 14.6 H 20.8 H RBC 4.23 4.33 Hgb 8.6 L 8.6 L Hct 30.3 L 30.3 L MCV 71.6 L 70.0 L MCH 20.3 L 19.9 L MCHC 28.4 L 28.4 L RDW 16.8 H 16.7 H Plt Count 368 358 MPV 9.3 L 9.4 Immature Gran % (Auto) 0.3 1.0 H Neut % (Auto) 88.4 H 91.3 H Lymph % (Auto) 6.1 L 3.1 L [place] % (Auto) 4.9 4.5 Eos % (Auto) 0.1 0.0 Baso % (Auto) 0.2 0.1 Lymph # (Auto) 0.9 L 0.7 L [place] # (Auto) 0.7 0.9 Eos # (Auto) 0.0 0.0 Baso # (Auto) 0.0 0.0 Abs Immat Gran (auto) 0.04 H 0.20 H Absolute Neuts (auto) 12.9 H 19.0 H Absolute Nucleated RBC 0.000 0.000 Nucleated RBC % (auto) 0.0 0.0 Smear Tech's Comments VERIFIED PT INR Sodium Potassium Chloride Carbon Dioxide Anion Gap BUN Creatinine Estim Creat Clear Calc Estimated GFR Random Glucose Lactic Acid Calcium Magnesium Iron TIBC % Saturation Unsat Iron Binding Total Bilirubin Direct Bilirubin AST ALT Alkaline Phosphatase Total Protein Albumin Lipase Beta HCG, Quant Urine Color Urine Appearance Urine pH Ur Specific Hedrick Urine Protein Urine Glucose (UA) Urine Ketones Urine Blood Urine Nitrite Ur Leukocyte Esterase Urine RBC Urine WBC Ur Squamous Epith Cells Urine Bacteria Hyaline Casts Urine Opiates Screen POSITIVE H Urine Fentanyl Screen Not Detected Ur Barbiturates Screen Not Detected Ur Phencyclidine Scrn Not Detected Ur Amphetamines Screen Not Detected U Benzodiazepines Scrn Not Detected Urine Cocaine Screen POSITIVE H U Marijuana (THC) Screen Not Detected COVID-19 (TEJA) COVID-19 Clin Com 01/26/22 06:11 WBC RBC Hgb Hct MCV MCH MCHC RDW Plt Count MPV Immature Gran % (Auto) Neut % (Auto) Lymph % (Auto) [place] % (Auto) Eos % (Auto) Baso % (Auto) Lymph # (Auto) [place] # (Auto) Eos # (Auto) Baso # (Auto) Abs Immat Gran (auto) Absolute Neuts (auto) Absolute Nucleated RBC Nucleated RBC % (auto) Smear Tech's Comments PT INR Sodium 139 Potassium 3.8 Chloride 104 Carbon Dioxide 25 Anion Gap 14 BUN 9 Creatinine 0.67 Estim Creat Clear Calc 135.2 Estimated GFR > 60 Random Glucose 117 H Lactic Acid Calcium 8.6 D Magnesium Iron 9 L TIBC 324 % Saturation 3 L Unsat Iron Binding 315 Total Bilirubin Direct Bilirubin AST ALT Alkaline Phosphatase Total Protein Albumin Lipase Beta HCG, Quant Urine Color Urine Appearance Urine pH Ur Specific [place] Urine Protein Urine Glucose (UA) Urine Ketones Urine Blood Urine Nitrite Ur Leukocyte Esterase Urine RBC Urine WBC Ur Squamous Epith Cells Urine Bacteria Hyaline Casts Urine Opiates Screen Urine Fentanyl Screen Ur Barbiturates Screen Ur Phencyclidine Scrn Ur Amphetamines Screen U Benzodiazepines Scrn Urine Cocaine Screen U Marijuana (THC) Screen COVID-19 (TEJA) COVID-19 Clin Com OIL REFINERY PROCESS TECHNICIAN - A/P (1) Ruptured ovarian cyst: Status: Acute Assessment and Plan: H&H stable Ambulate, regular diet, if p.o. regular diet is tolerated switch to p.o. oxycodone and/or ibuprofen p.r.n. If pain is improved in p.m and well tolerated with p.o. analgesics and the patient is tolerating regular diet with no nausea and/or vomiting, she can be discharged on p.o. oxycodone p.r.n. with ibuprofen p.r.n. pain, otherwise tomorrow a.m. Discharge instructions to come back to emergency room in case of fever above 100.4, recurrence or worsening abdominal/pelvic pain, nausea and /or vomiting and to Follow-up in the outpatient office regarding ovarian cyst Time Spent With Patient Time: Total time spent is greater than 50% in coordination of care (as documented) at patient's floor/unit and/or counseling patient: Quality Measures - [employer] H&P VTE Prior VTE?: No VTE Risk Level:: Medical - low VTE Device Contraindication: Treatment Not Indicated VTE Drug Contraindication: Treatment Not Indicated
--- NOTE | 2022-01-26 14:08 | PM.EVENT ---
Event Note Date of Service: 01/26/22 Event Note: patient awake alert complaining of left lower quadrant abdominal pain 10/17 36-year-old female, not on prescription medications with pertinent history of cocaine use disorder, who presents to the emergency department for evaluation of abdominal pain. #. Ruptured left ovarian hemorrhagic cyst persistent left lower quadrant abdominal pain, continue IV morphine, will add oxycodone as needed seen by Dr. Aguilar Camar[place] he recommend to resume diet since no intervention planned he recommend to discharge patient home if able to tolerate diet and take by mouth analgesics HCG negative. GC/CT, BV panel and Trichomonas pending. #. Cocaine use disorder-CARE team and addiction team consulted #. Iron deficiency received 1st dose of IV iron follow CBC #. Reactive leukocytosis hold antibiotics DVT prophylaxis: None Full code
--- NOTE | 2022-01-26 15:02 | MHC.CM.PN ---
CHAVEZ 01/26/22 Female 36 DX AB pain She lives with her cousin. She is independent with all functional mobility. She declines to document a HCP. She has not been vaccinated for covid. DP home self care. Patient will arrange for a family member to provide transportation home.
[2022-01-26 15:03] LABS: BV Int Neg Control Negative (Negative); BV Int Pos Control Positive (Positive)
[2022-01-26] MEDS: oxyCODONE HCl Immed Release 5 MG TABLET PO (15:50)
[2022-01-26] MEDS: Acetaminophen 325 MG TABLET 650 MG PO (20:33)
[2022-01-27 03:13] LABS: CT PCR NOT DETECTED (Not Detect.); NG PCR NOT DETECTED (Not Detect.)
[2022-01-27] MEDS: ondansetron HCL 4 MG/2 ML VIAL IVPUSH (04:06)
[2022-01-27] MEDS: Morphine Sulfate 4 MG/ML CARTRIDGE IVPUSH ×3 (04:06→15:34)
[2022-01-27 06:25] LABS: Hematocrit 30.4 % (37.0-47.0); Hemoglobin 8.4 g/dl (12.0-16.0); Mean Corpuscular HGB Conc 27.6 g/dl (31.0-35.0); Mean Corpuscular Hemoglobin 19.5 pg (27.0-33.0); Mean Corpuscular Volume 70.7 fL (80.0-98.0); Mean Platelet Volume 9.5 fL (9.4-12.3); Platelet Count 378 X10*3/uL (160-400); Red Cell Distribution Width 16.7 % (11.0-16.0); White Blood Count 27.4 X10*3/uL (4.8-10.8)
[2022-01-27 07:13] VITALS: BP 118/67; PULSE 87; RESP 16; TEMP 36.9; O2SAT 95
--- NOTE | 2022-01-27 09:15 | P.PNIM_ITS ---
Subjective Subjective Date of Service: 01/27/22 Interval History: noted to have a fever of 103.2 last night improved with Tylenol, no fever chills this morning, but patient complaining of nausea, vomiting persistent severe lower abdominal discomfort mostly left lower quadrant, poor by mouth intake, denies headache, dizziness, no chest pain, no shortness of breath, no cough no other acute events. Review of Systems Review of Systems: Yes all other systems are reviewed and are negative Physical Exam Vital Signs: Vital Signs: Last Vital Signs Temp 98.4 F 01/27/22 07:13 Pulse 87 01/27/22 07:13 Resp 16 01/27/22 07:13 BP 118/67 01/27/22 07:13 Pulse Ox 95 01/27/22 07:13 O2 Del Method 01/27/22 07:13 BMI result Body Mass Index 26.6 Const: Other: General ill-appearing mild distress due to pain. Neck is supple no JVD. CVS regular rate rhythm, Respiratory lungs clear to auscultation, no respiratory distress, no wheeze, no rhonchi. Gastrointestinal abdomen soft, tenderness left lower quadrant and suprapubic, no rebound no rigidity extremities no edema Neuro nonfocal Skin no rash Objective Data Active Medications Acetaminophen (Acetaminophen 325 Mg Tablet) 650 mg PO Q6H PRN PRN Reason: Pain, Mild (Pain Scale 1-3) Last Admin: 01/26/22 20:33 Dose: 650 mg Documented By: OCTAVIO Iron Sucrose 200 mg/ Sodium (Chloride) 110 mls @ 440 mls/hr IV DAILY [facility] Last Infusion: 01/26/22 11:22 Dose: 440 mls/hr Documented By: CHRIS Doxycycline Hyclate 100 mg/ (Sodium Chloride) 250 mls @ 166.67 mls/hr IV Q12H [facility] Ceftriaxone Sodium 1 gm/ (Sodium Chloride) 50 mls @ 100 mls/hr IV Q24H [facility] Metronidazole (Flagyl) 500 mg in 100 mls @ 100 mls/hr IV Q12H [facility] Melatonin (Melatonin 3 Mg Tablet) 6 mg PO BEDTIME PRN PRN Reason: Insomnia Morphine Sulfate (Morphine Sulfate 4 Mg/Ml Cartridge) 4 mg IVPUSH Q4H PRN; Pr otocol PRN Reason: Pain, Severe (Pain Scale 7-10) Last Admin: 01/27/22 04:06 Dose: 4 mg Documented By: OCTAVIO Ondansetron HCl (Ondansetron Hcl 4 Mg/2 Ml Vial) 4 mg IVPUSH Q8H PRN PRN Reason: Nausea and Vomiting Last Admin: 01/27/22 04:06 Dose: 4 mg Documented By: OCTAVIO Oxycodone HCl (Oxycodone Hcl Immed Release 5 Mg Tablet) 5 mg PO Q4H PRN PRN Reason: Pain, Moderate (Pain Scale 4-6 Last Admin: 01/26/22 15:50 Dose: 5 mg Documented By: SUNITA Sodium Chloride (0.9 % Sodium Chloride Flush 3 Ml Syringe) 3 ml IVFLUSH QSHIFT [facility] Last Admin: 01/26/22 20:41 Dose: 3 ml Documented By: OCTAVIO Labs CBC & Chem 7: 01/27/22 05:50 01/26/22 06:11 Labs: Laboratory Results - last 24 hr 01/26/22 01/26/22 01/27/22 00:44 00:44 05:50 MCV 70.7 L MCH 19.5 L MCHC 27.6 L RDW 16.7 H Plt Count 378 MPV 9.5 Absolute Nucleated RBC 0.000 Nucleated RBC % (auto) 0.0 Omaira species DNA Negative Chlam trachomat DNA PCR NOT DETECTED Gardnerella DNA Probe Positive A N.gonorrhoeae DNA (PCR) NOT DETECTED Trichomonas DNA Probe Positive A Microbiology Microbiology Results: Microbiology 01/25/22 00:00 Urine Culture - Final Urine clean catch - Urine paul top Assessment and Plan (1) Cocaine abuse: Status: Acute (2) Iron deficiency: Status: Acute (3) Ruptured ovarian cyst: Status: Acute Plan patient awake alert complaining of left lower quadrant abdominal pain 10/17 36-year-old female, not on prescription medications with pertinent history of cocaine use disorder, who presents to the emergency department for evaluation of abdominal pain. #. Ruptured? left ovarian hemorrhagic cyst persistent left lower quadrant abdominal pain, fever up to 103.2 last night, WBC bumped to 27,000, patient meets sepsis criteria due to PID but do not have severe sepsis will obtain blood cultures case discussed with Dr. Sheikh , treat with IV ceftriaxone 1 g, IV doxycycline 100 mg b.i.d. and IV Flagyl 500 mg b.i.d. gonococcal/ chlamydia and Trichomonas cultures negative continue IV morphine, and oxycodone as needed start IV fluid with decreased by mouth intake ?? ? #. Cocaine use disorder-CARE team and addiction team consulted #. Iron deficiency anemia continue iron infusion DVT prophylaxis: recommend early ambulation Full code patient will need continued inpatient hospitalization due to high-grade fever abdominal pain on IV analgesics, IV fluids and IV antibiotics Quality Stroke Does the patient have a stroke diagnosis?: No VTE Prior VTE?: No VTE Risk Level:: Medical - low VTE Device Contraindication: Treatment Not Indicated VTE Drug Contraindication: Treatment Not Indicated
[2022-01-27] MEDS: Iron Sucrose Complex 200 MG in 0.9 % Sodium Chloride 100 ML 440 MG IV (09:23)
[2022-01-27] MEDS: 0.9 % Sodium Chloride Flush 3 ML SYRINGE IVFLUSH ×2 (09:23→23:56)
[2022-01-27] MEDS: Lactated Ringers 1,000 ML 100 ML IVCONT ×2 (09:43→20:30)
[2022-01-27] MEDS: cefTRIAXone sodium 1 GM in 0.9 % Sodium Chloride 50 ML IV (09:49)
[2022-01-27] MEDS: Acetaminophen 325 MG TABLET 650 MG PO (09:53)
[2022-01-27] MEDS: metroNIDAZOLE/NS 500 MG/100 ML PIGGYBACK 100 MG IV ×2 (10:20→23:55)
--- NOTE | 2022-01-27 10:44 | PM.GYNPNOP ---
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 I was contacted by Dr. 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 Physical Exam Vitals Vital signs: Temp Pulse Resp BP Pulse Ox O2 Del Method 98.4 F 87 16 118/67 95 01/27/22 07:13 01/27/22 07:13 01/27/22 07:13 01/27/22 07:13 01/27/22 07:13 01/27/22 07:13 BMI result Body Mass Index 26.6 Abdomen Auscultation/Inspection/Palpation: Soft, Non-distended, No CVA tenderness, Tenderness (Left and right lower quadrant tenderness) and Other (No rebound and no guarding) 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 VEHICLE 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 INSTRUCTOR - Prog Note: Results Labs CBC & Chem 7: 01/27/22 05:50 01/26/22 06:11 Labs: Laboratory Results - last 24 hr 01/26/22 01/26/22 01/27/22 00:44 00:44 05:50 WBC 27.4 H RBC 4.30 Hgb 8.4 L Hct 30.4 L MCV 70.7 L MCH 19.5 L MCHC 27.6 L RDW 16.7 H Plt Count 378 MPV 9.5 Absolute Nucleated RBC 0.000 Nucleated RBC % (auto) 0.0 Omaira species DNA Negative Chlam trachomat DNA PCR NOT DETECTED Gardnerella DNA Probe Positive A N.gonorrhoeae DNA (PCR) NOT DETECTED Trichomonas DNA Probe Positive A EMERGENCY VEHICLE OPERATIONS INSTRUCTOR - A/P (1) Iron deficiency: Status: Acute Assessment and Plan: The patient received iron IV, will be discharged on iron sulfate 325 mg p.o. b.i.d. (2) Ruptured ovarian cyst: Status: Acute Assessment and Plan: H&H stable, will follow-up outpatient ultrasound after discharge If fever does not improve after 24-48 hours of IV antibiotics were repeat imaging to rule out TOA (3) PID (acute pelvic inflammatory disease): Status: Acute Assessment and Plan: STD screen to be ordered in a.m. including HIV, hepatitis-B surface antigen, Hepatitis-C antibody and RPR. IV antibiotics with Ceftriaxone 1 g Q 24, doxycycline 100 mg IV q.12, metronidazole 500 mg IV q.12 till clinical improvement for 48-72 hours, then discharge home on doxycycline 100 mg p.o. b.i.d. with Flagyl 500 mg p.o. b.i.d. for a total of 14 days, to be followed up as an outpatient within 2 weeks. If the patient does not improve clinically within 24-48 hours, with persistent fever and/ or severe pain , will order ultrasound rule out TOA. (4) Trichomonas infection: Status: Acute Assessment and Plan: Patient is being treated with Flagyl, and will continue p.o. Flagyl after discharge Discussed with the patient the results of Trichomonas, instructions given the patient toinform her partner(s), to be screened and treated by their PCP, not to have unprotected intercourse after discharge for a week, schedule a follow-up appointment for a test of cure in 2 weeks after discharge in at 3 months afterward Time Spent With Patient Time: Total time spent is greater than 50% in coordination of care (as documented) at patient's floor/unit and/or counseling patient: Quality Measures - ASTROBIOLOGIST H&P VTE Prior VTE?: No VTE Risk Level:: Medical - low VTE Device Contraindication: Treatment Not Indicated VTE Drug Contraindication: Treatment Not Indicated
[2022-01-27] MEDS: Doxycycline Hyclate 100 MG in 0.9 % Sodium Chloride 250 ML 166.67 MG IV ×2 (11:40→22:41)
--- NOTE | 2022-01-27 11:43 | PM.EVENT ---
Event Note Date of Service: 01/27/22 Event Note: Addiction consult service received. Patient currently being treated for pain due to ruptured hemorrhagic ovarian cyst, as per chart. Receiving IV opioid pain medication at this time. Addiction team to see patient tomorrow.
[2022-01-27 12:00] VITALS: TEMP 37.3
[2022-01-27 15:26] VITALS: BP 168/66; PULSE 93; RESP 18; TEMP 37.1; O2SAT 98
[2022-01-27] MEDS: oxyCODONE HCl Immed Release 5 MG TABLET 10 MG PO (18:27)
[2022-01-27 19:37] VITALS: BP 107/53; PULSE 83; RESP 18; TEMP 37; O2SAT 98
[2022-01-27] MEDS: Morphine Sulfate 2 MG/ML CARTRIDGE 4 MG IVPUSH (22:41)
[2022-01-28] VITALS (7 sets, daily range): BP systolic 102–123; BP diastolic 51–65; PULSE 70–87; RESP 16–19; TEMP 36.4–37.1; O2SAT 94–98
[2022-01-28] MEDS: Morphine Sulfate 2 MG/ML CARTRIDGE 4 MG IVPUSH ×4 (03:01→20:55)
[2022-01-28] MEDS: oxyCODONE HCl Immed Release 5 MG TABLET 10 MG PO ×3 (05:50→17:45)
[2022-01-28] MEDS: Lactated Ringers 1,000 ML 100 ML IVCONT (05:52)
[2022-01-28] MEDS: Acetaminophen 325 MG TABLET 650 MG PO (07:30)
[2022-01-28] MEDS: Iron Sucrose Complex 200 MG in 0.9 % Sodium Chloride 100 ML 440 MG IV (09:16)
[2022-01-28] MEDS: Ketorolac Tromethamine 30 MG/ML VIAL IVPUSH ×3 (10:48→22:33)
[2022-01-28] MEDS: Doxycycline Hyclate 100 MG in 0.9 % Sodium Chloride 250 ML 166.67 MG IV ×2 (10:48→21:02)
--- NOTE | 2022-01-28 11:42 | HO.PM.IMPN ---
Subjective Subjective Date of Service: 01/28/22 Interval History: complaining of left lower quadrant abdominal pain with radiation towards lower mid abdomen, denies fever, chills, no headache, no lightheadedness, and dizziness, complaining of decreased appetite but drinking plenty of fluids, no shortness of breath. requesting for pain medication since pain not under good control. Review of Systems CVS no chest pain no palpitation respiratory no cough, no shortness of breath Review of Systems: Yes all other systems are reviewed and are negative Physical Exam Vital Signs: Vital Signs: Last Vital Signs Temp 97.7 F 01/28/22 11:29 Pulse 74 01/28/22 11:29 Resp 18 01/28/22 11:29 BP 102/51 L 01/28/22 11:29 Pulse Ox 98 01/28/22 11:29 O2 Del Method 01/28/22 11:29 BMI result Body Mass Index 26.6 Const: Other: General? awake alert x3, nonseptic looking, mild distress due to pain.? Neck no JVD. CVS? regular rate rhythm, Respiratory lungs clear to auscultation, no respiratory distress, no wheeze, no rhonchi. Gastrointestinal abdomen soft, bowel sounds audible,tenderness left lower quadrant and suprapubic, no rebound no rigidity extremities no edema Neuro nonfocal Skin no rash Objective Data Active Medications Acetaminophen (Acetaminophen 325 Mg Tablet) 650 mg PO Q6H PRN PRN Reason: Pain, Mild (Pain Scale 1-3) Last Admin: 01/28/22 07:30 Dose: 650 mg Documented By: MONA Iron Sucrose 200 mg/ Sodium (Chloride) 110 mls @ 440 mls/hr IV DAILY [facility] Last Infusion: 01/28/22 09:45 Dose: 0 mls/hr Documented By: MONA Doxycycline Hyclate 100 mg/ (Sodium Chloride) 250 mls @ 166.67 mls/hr IV Q12H [facility] Last Admin: 01/28/22 10:48 Dose: 166.67 mls/hr Documented By: MONA Metronidazole (Flagyl) 500 mg in 100 mls @ 100 mls/hr IV Q12H [facility] Ceftriaxone Sodium 1 gm/ (Sodium Chloride) 50 mls @ 100 mls/hr IV Q24H [facility] Ketorolac Tromethamine (Ketorolac Tromethamine 30 Mg/Ml Vial) 30 mg IVPUSH Q6H [facility] Stop: 01/29/22 05:01 Last Admin: 01/28/22 10:48 Dose: 30 mg Documented By: MONA Melatonin (Melatonin 3 Mg Tablet) 6 mg PO BEDTIME PRN PRN Reason: Insomnia Morphine Sulfate (Morphine Sulfate 2 Mg/Ml Cartridge) 4 mg IVPUSH Q4H PRN; Protocol PRN Reason: Pain, Severe (Pain Scale 7-10) Last Admin: 01/28/22 07:30 Dose: 4 mg Documented By: MONA Ondansetron HCl (Ondansetron Hcl 4 Mg/2 Ml Vial) 4 mg IVPUSH Q8H PRN PRN Reason: Nausea and Vomiting Last Admin: 01/27/22 04:06 Dose: 4 mg Documented By: OCTAVIO Oxycodone HCl (Oxycodone Hcl Immed Release 5 Mg Tablet) 10 mg PO Q4H PRN PRN Reason: Pain, Moderate (Pain Scale 4-6 Last Admin: 01/28/22 10:49 Dose: 10 mg Documented By: MONA Sodium Chloride (0.9 % Sodium Chloride Flush 3 Ml Syringe) 3 ml IVFLUSH [facility] Last Admin: 01/28/22 07:19 Dose: Not Given Documented By: MONA Non-Admin Reason: IV Running Labs CBC & Chem 7: 01/27/22 05:50 01/26/22 06:11 Microbiology Microbiology Results: Microbiology 01/25/22 00:00 Urine Culture - Final Urine clean catch - Urine paul top Assessment and Plan (1) Cocaine abuse: Status: Acute (2) Iron deficiency: Status: Acute (3) Ruptured ovarian cyst: Status: Acute Plan patient awake alert complaining of left lower quadrant abdominal pain 10/17 36-year-old female, not on prescription medications with pertinent history of cocaine use disorder, who presents to the emergency department for evaluation of abdominal pain. #. fevers /left lower quadrant abdominal pain due to PID/ left hemorrhagic cyst in differential reviewed CT abdomen and pelvis findings with radiology, findings most consistent with pelvic inflammatory disease persistent left lower quadrant abdominal pain, no recurrent fever in last 24 hours, WBC 27,000, repeat CBC pending this morning patient meets sepsis criteria due to fever and leukocytosis but do not have severe sepsis, normal LFTs blood cultures pending, HIV, hep C serology RPR ordered as per OBGYN recommendation continue IV ceftriaxone 1 g, IV doxycycline 100 mg b.i.d. and IV Flagyl 500 mg b.i.d. day 2 gonococcal/ chlamydia negative Trichomonas positive continue IV morphine, and oxycodone as needed will add Toradol 30 mg x 4 dosages, DC IV fluids outpatient follow-up with Dr. Sheikh #. Cocaine use disorder- seen by Addiction Team there continue to follow #. Iron deficiency anemia continue iron infusion day 3/4 transition to by mouth upon discharge DVT prophylaxis: recommend early ambulation Full code patient will need continued inpatient hospitalization due to fever abdominal pain on IV analgesics, and IV antibiotics Quality Stroke Does the patient have a stroke diagnosis?: No VTE Prior VTE?: No VTE Risk Level:: Medical - low VTE Device Contraindication: Treatment Not Indicated VTE Drug Contraindication: Treatment Not Indicated
[2022-01-28] MEDS: metroNIDAZOLE/NS 500 MG/100 ML PIGGYBACK 100 MG IV ×2 (12:27→23:15)
[2022-01-28 12:39] LABS: Hematocrit 28.9 % (37.0-47.0); Hemoglobin 8.2 g/dl (12.0-16.0); Mean Corpuscular HGB Conc 28.4 g/dl (31.0-35.0); Mean Corpuscular Hemoglobin 20.1 pg (27.0-33.0); Mean Corpuscular Volume 70.8 fL (80.0-98.0); Mean Platelet Volume 9.2 fL (9.4-12.3); Platelet Count 371 X10*3/uL (160-400); Red Blood Count 4.08 X10*6/uL (4.20-5.50); Red Cell Distribution Width 16.8 % (11.0-16.0); White Blood Count 28.7 X10*3/uL (4.8-10.8)
[2022-01-28 13:00] LABS: Blood Urea Nitrogen 8 mg/dL (9-16); Calcium 8.5 mg/dL (8.4-10.2); Creatinine Clr Calc Pharmacy 150.9; Estimated Glomerular Filt Rate > 60; Glucose Random 110 mg/dL (60-115)
[2022-01-28 13:06] LABS: Anion Gap 11 (12-20); Carbon Dioxide 29 mmol/L (22-29); Chloride 103 mmol/L (96-108); Potassium 3.1 mmol/L (3.3-5.1); Sodium 140 mmol/L (135-145)
[2022-01-28 13:21] LABS: Syphilis Screen Nonreactive (Nonreactive)
[2022-01-28] MEDS: cefTRIAXone sodium 1 GM in 0.9 % Sodium Chloride 50 ML IV (13:51)
[2022-01-28] MEDS: Potassium Chloride ER 20 MEQ TAB.ER.PRT PO (14:38)
[2022-01-28] MEDS: KCl 20 mEq in 5 % Dex/Lact Rin 20 MEQ/1,000 ML IV.SOLN 100 MEQ IVCONT ×2 (14:39→23:14)
--- NOTE | 2022-01-28 14:45 | PM.GYNPNOP ---
VISCOSE DEPARTMENT WORKER - Subjective Subjective Date of Service: 01/28/22 Interval history: The patient is still complaining of left lower quadrant abdominal pain with no additional symptoms other than decreased appetite but drinking p.o. fluids, her nausea or vomiting has resolved completely, ambulating. 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 Physical Exam Vitals Vital signs: Temp Pulse Resp BP Pulse Ox O2 Del Method 97.7 F 74 18 102/51 L 98 01/28/22 11:29 01/28/22 11:29 01/28/22 11:29 01/28/22 11:29 01/28/22 11:29 01/28/22 11:29 BMI result Body Mass Index 26.6 Abdomen Auscultation/Inspection/Palpation: Soft and Tenderness (Bilateral lower quadrant, no rebound or guarding) VISCOSE DEPARTMENT WORKER - Prog Note: Results Labs CBC & Chem 7: 01/28/22 12:27 01/28/22 12:27 Labs: Laboratory Results - last 24 hr 01/28/22 01/28/22 01/28/22 12:27 12:27 12:27 WBC 28.7 H RBC 4.08 L Hgb 8.2 L Hct 28.9 L MCV 70.8 L MCH 20.1 L MCHC 28.4 L RDW 16.8 H Plt Count 371 MPV 9.2 L Absolute Nucleated RBC 0.000 Nucleated RBC % (auto) 0.0 Sodium 140 Potassium 3.1 L Chloride 103 Carbon Dioxide 29 Anion Gap 11 L BUN 8 L Creatinine 0.60 Estim Creat Clear Calc 150.9 Estimated GFR > 60 Random Glucose 110 Calcium 8.5 T.pallidum Ab (EIA) Nonreactive VISCOSE DEPARTMENT WORKER - A/P (1) PID (acute pelvic inflammatory disease): Status: Acute Assessment and Plan: Pain and leukocytosis persistent, but afebrile last 36 hours, Continue IV antibiotics, will check pelvic ultrasound to rule out TOA, repeat CBC in a.m. STD serology screen still pending (2) Trichomonas infection: Status: Acute Assessment and Plan: On metronidazole Time Spent With Patient Time: Total time spent is greater than 50% in coordination of care (as documented) at patient's floor/unit and/or counseling patient: Quality Measures - PATHOLOGY SECRETARY/TRANSCRIPTIONIST H&P VTE Prior VTE?: No VTE Risk Level:: Medical - low VTE Device Contraindication: Treatment Not Indicated VTE Drug Contraindication: Treatment Not Indicated
--- NOTE | 2022-01-28 15:24 | PM.EVENT ---
Event Note Date of Service: 01/28/22 Event Note: Addiction consult: Please see recovery support RN note
--- NOTE | 2022-01-28 16:07 | MHC.RECOVRN ---
Addendum entered by Yee Johnson 01/30/22 12:46: Pt had been provided resources as well as fentanyl test strips. Original Note: Met with pt in 358 to discuss substance use after consult placed to Addiction Medicine. Pt laying in bed, awake, alert, easily engages in conversation regarding reason for hospitalization. Pt reports pain has been uncontrolled the past few days and this morning she finally felt relief. Pt difficult to engage in conversation regarding substance use, states I don't do coke like that. Pt does not elaborate. Pt reports using opiate pills in the past, not currently. Discussed harm reduction, pt receptive. Pt educated regarding fentanyl being present in other substances and risk of overdose. Pt educated regarding recovery resources and supports, declines referrals at this time. T/w will follow up in the morning and provide pt with fentanyl test strips. Discussed with Leda Fang APRN.
[2022-01-28] MEDS: Docusate Sodium 100 MG CAPSULE PO (17:44)
[2022-01-29] MEDS: oxyCODONE HCl Immed Release 5 MG TABLET 10 MG PO ×4 (03:21→21:41)
[2022-01-29] MEDS: Acetaminophen 325 MG TABLET 650 MG PO ×3 (03:21→17:51)
[2022-01-29 04:00] VITALS: BP 103/57; PULSE 77; RESP 20; TEMP 37.1; O2SAT 98
[2022-01-29] MEDS: Ketorolac Tromethamine 30 MG/ML VIAL IVPUSH (04:18)
[2022-01-29 04:30] LABS: HBS Num1 14.15 mIU/mL (0-7.99); HBc Num1 0.11 S/CO (0.00-0.79); HBsAGNum1 0.42 S/CO (0.00-0.99); HIV AB/AG Nonreactive (Nonreactive); HIV Num 1 0.08 S/CO (0.00-0.99); Hepatitis B Core Antibody Nonreactive (Nonreactive); Hepatitis B Surface Antigen Negative (Negative); ~HepC Num1 0.46 S/CO (0.00-0.79); ~Hepatitis B Surface Antibody REACTIVE (Nonreactive); ~Hepatitis C Antibody Nonreactive (Nonreactive)
[2022-01-29 06:57] LABS: Hematocrit 25.9 % (37.0-47.0); Hemoglobin 7.3 g/dl (12.0-16.0); Mean Corpuscular HGB Conc 28.2 g/dl (31.0-35.0); Mean Corpuscular Hemoglobin 20.3 pg (27.0-33.0); Mean Corpuscular Volume 72.1 fL (80.0-98.0); Mean Platelet Volume 9.9 fL (9.4-12.3); Platelet Count 385 X10*3/uL (160-400); Red Blood Count 3.59 X10*6/uL (4.20-5.50); Red Cell Distribution Width 17.1 % (11.0-16.0); White Blood Count 23.3 X10*3/uL (4.8-10.8)
[2022-01-29 07:17] LABS: Anion Gap 14 (12-20); Blood Urea Nitrogen 12 mg/dL (9-16); Calcium 8.3 mg/dL (8.4-10.2); Carbon Dioxide 27 mmol/L (22-29); Chloride 102 mmol/L (96-108); Estimated Glomerular Filt Rate > 60; Glucose Random 115 mg/dL (60-115); Potassium 3.2 mmol/L (3.3-5.1); Sodium 140 mmol/L (135-145)
[2022-01-29 07:30] VITALS: BP 96/50; PULSE 65; RESP 18; TEMP 35.8; O2SAT 95
--- NOTE | 2022-01-29 08:26 | PM.GYNPNOP ---
BULLDOGGER - Subjective Subjective Date of Service: 01/29/22 Interval history: The patient was feeling much better this morning, her pain has improved markedly according to her for the 1st time since she presented to the emergency room. Ambulating well. But started to have more pain around noon time. On ceftriaxone, doxycycline and Flagyl IV for last 48 hours Pelvic ultrasound done yesterday showed moderate amount of blood in the pelvis, differential diagnosis includes PID , hemorrhage or ectopic. HCG done in the emergency room was negative so ectopic is ruled out. H&H at 06:00 dropped to 7.3/25. 9 from yesterday. Patient was kept NPO for possible exploratory laparoscopy. Repeat in 6 hours H&H was 7.8/27.8. 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[employer] Physical Exam Vitals Vital signs: Temp Pulse Resp BP Pulse Ox O2 Del Method 96.4 F L 65 18 96/50 L 95 01/29/22 07:30 01/29/22 07:30 01/29/22 07:30 01/29/22 07:30 01/29/22 07:30 01/29/22 07:30 BMI result Body Mass Index 26.6 Abdomen Auscultation/Inspection/Palpation: Soft and Tenderness (Bilateral lower quadrant no guarding or rebound) BULLDOGGER - Prog Note: Results Labs CBC & Chem 7: 01/29/22 11:22 01/29/22 11:22 Labs: Laboratory Results - last 24 hr 01/28/22 01/28/22 01/28/22 12:27 12:27 12:27 WBC 28.7 H RBC 4.08 L Hgb 8.2 L Hct 28.9 L MCV 70.8 L MCH 20.1 L MCHC 28.4 L RDW 16.8 H Plt Count 371 MPV 9.2 L Absolute Nucleated RBC 0.000 Nucleated RBC % (auto) 0.0 Sodium 140 Potassium 3.1 L Chloride 103 Carbon Dioxide 29 Anion Gap 11 L BUN 8 L Creatinine 0.60 Estim Creat Clear Calc 150.9 Estimated GFR > 60 Random Glucose 110 Calcium 8.5 T.pallidum Ab (EIA) Hep Bs Antigen Negative Hep Bs Antibody REACTIVE Hep B Core Total Ab Nonreactive Hepatitis C Ab (EIA) Nonreactive HIV 1&2 Ab/P24 Ag 4thGn Nonreactive 01/28/22 01/29/22 01/29/22 12:27 05:56 05:56 WBC 23.3 H RBC 3.59 L Hgb 7.3 L Hct 25.9 L MCV 72.1 L MCH 20.3 L MCHC 28.2 L RDW 17.1 H Plt Count 385 MPV 9.9 Absolute Nucleated RBC 0.000 Nucleated RBC % (auto) 0.0 Sodium 140 Potassium 3.2 L Chloride 102 Carbon Dioxide 27 Anion Gap 14 BUN 12 Creatinine 0.62 Estim Creat Clear Calc 146.0 Estimated GFR > 60 Random Glucose 115 Calcium 8.3 L T.pallidum Ab (EIA) Nonreactive Hep Bs Antigen Hep Bs Antibody Hep B Core Total Ab Hepatitis C Ab (EIA) HIV 1&2 Ab/P24 Ag 4thGn BULLDOGGER - A/P (1) PID (acute pelvic inflammatory disease): Status: Acute Assessment and Plan: The patient has been afebrile, since 01/26 at 20:00, leukocytosis improved since yesterday, pain was better in the morning but recurred around noon time. Will keep the patient on IV antibiotics, if pain improves by tomorrow morning and the patient stays afebrile and leukocytosis keeps on improving, consider discharge tomorrow on p.o. antibiotics for a total of 14 days doxycycline 100 mg p.o. b.i.d. with Flagyl 500 mg p.o. b.i.d. (2) Trichomonas infection: Status: Acute Assessment and Plan: Keep Flagyl IV, to stay on Flagyl 500 mg p.o. b.i.d. for a total of 7 day (3) Ruptured ovarian cyst: Status: Acute Assessment and Plan: This a.m. H&H dropped to 7.3/25.9 from 8.2/28.9 yesterday and from 8/30.3 on 01/16 at 01:00, repeat H&H today after 6 hours , it was 7.8/27.8. H&H stable since admission; there is no evidence of additional acute blood loss over the last few days more than the initial blood loss secondary to ovarian cyst rupture. The patient was kept NPO, will resume regular diet. Continue iron transfusion and pain management. Time Spent With Patient Time: Total time spent is greater than 50% in coordination of care (as documented) at patient's floor/unit and/or counseling patient: Quality Measures - 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[facility] H&P VTE Prior VTE?: No VTE Risk Level:: Medical - low VTE Device Contraindication: Treatment Not Indicated VTE Drug Contraindication: Treatment Not Indicated
[2022-01-29] MEDS: 0.9 % Sodium Chloride Flush 3 ML SYRINGE IVFLUSH (08:42)
[2022-01-29] MEDS: Iron Sucrose Complex 200 MG in 0.9 % Sodium Chloride 100 ML 440 MG IV (08:42)
[2022-01-29] MEDS: Doxycycline Hyclate 100 MG in 0.9 % Sodium Chloride 250 ML 166.67 MG IV ×2 (09:29→21:42)
[2022-01-29] MEDS: Morphine Sulfate 2 MG/ML CARTRIDGE 4 MG IVPUSH ×4 (09:29→23:21)
[2022-01-29 11:20] VITALS: BP 121/60; PULSE 83; RESP 18; TEMP 37.3; O2SAT 100
[2022-01-29] MEDS: metroNIDAZOLE/NS 500 MG/100 ML PIGGYBACK 100 MG IV ×2 (11:28→23:23)
[2022-01-29 11:31] LABS: Hematocrit 27.8 % (37.0-47.0); Hemoglobin 7.8 g/dl (12.0-16.0); Mean Corpuscular HGB Conc 28.1 g/dl (31.0-35.0); Mean Corpuscular Hemoglobin 19.9 pg (27.0-33.0); Mean Corpuscular Volume 71.1 fL (80.0-98.0); Mean Platelet Volume 8.9 fL (9.4-12.3); Platelet Count 375 X10*3/uL (160-400); Red Blood Count 3.91 X10*6/uL (4.20-5.50); Red Cell Distribution Width 17.1 % (11.0-16.0); White Blood Count 23.6 X10*3/uL (4.8-10.8)
[2022-01-29 11:48] LABS: Anion Gap 13 (12-20); Blood Urea Nitrogen 11 mg/dL (9-16); Calcium 8.5 mg/dL (8.4-10.2); Carbon Dioxide 27 mmol/L (22-29); Chloride 104 mmol/L (96-108); Creatinine Clr Calc Pharmacy 139.3; Estimated Glomerular Filt Rate > 60; Glucose Random 99 mg/dL (60-115); Potassium 3.4 mmol/L (3.3-5.1); Sodium 141 mmol/L (135-145)
[2022-01-29] MEDS: cefTRIAXone sodium 1 GM in 0.9 % Sodium Chloride 50 ML IV (12:42)
--- NOTE | 2022-01-29 13:37 | P.PNIM_ITS ---
Subjective Subjective Date of Service: 01/29/22 Interval History: Still complaining of right lower quadrant pain that is wave like. Tolerated iron infusion Review of Systems Denies chest pain Denies shortness of breath Denies nausea vomiting diarrhea Admits right lower quadrant abdominal pain this centrally unchanged Physical Exam Vital Signs: Vital Signs: Last Vital Signs Temp 99.2 F 01/29/22 11:20 Pulse 83 01/29/22 11:20 Resp 18 01/29/22 11:20 BP 121/60 01/29/22 11:20 Pulse Ox 100 01/29/22 11:20 O2 Del Method 01/29/22 11:20 BMI result Body Mass Index 26.6 Const: Other: Awake alert; uncomfortable appearing Resp: Other: Clear to auscultation bilaterally no rales rhonchi or wheezes Cardio: Other: No S4; positive S1-S2; no S3 murmurs rubs or gallops GI: Other: Soft; quiet bowel sounds. Tender right lower quadrant without rebound Extrem: Other: No edema bilaterally Objective Data Active Medications Acetaminophen (Acetaminophen 325 Mg Tablet) 650 mg PO Q6H PRN PRN Reason: Pain, Mild (Pain Scale 1-3) Last Admin: 01/29/22 11:22 Dose: 650 mg Documented By: MONA Iron Sucrose 200 mg/ Sodium (Chloride) 110 mls @ 440 mls/hr IV DAILY [facility] Last Infusion: 01/29/22 09:26 Dose: 0 mls/hr Documented By: MONA Doxycycline Hyclate 100 mg/ (Sodium Chloride) 250 mls @ 166.67 mls/hr IV Q12H [facility] Last Infusion: 01/29/22 11:27 Dose: 0 mls/hr Documented By: MONA Metronidazole (Flagyl) 500 mg in 100 mls @ 100 mls/hr IV Q12H [facility] Last Infusion: 01/29/22 12:47 Dose: 0 mls/hr Documented By: MONA Ceftriaxone Sodium 1 gm/ (Sodium Chloride) 50 mls @ 100 mls/hr IV Q24H [facility] Last Admin: 01/29/22 12:42 Dose: 100 mls/hr Documented By: MONA Potassium Cl/Dextrose/Lact Ringer's (Kcl 20 Meq In 5 % Dex/Lact Rin) 20 meq in 1,000 mls @ 100 mls/hr IVCONT .Q10H [facility] Last Infusion: 01/29/22 04:33 Dose: 0 mls/hr Documented By: SARAH Melatonin (Melatonin 3 Mg Tablet) 6 mg PO BEDTIME PRN PRN Reason: Insomnia Morphine Sulfate (Morphine Sulfate 2 Mg/Ml Cartridge) 4 mg IVPUSH Q4H PRN; Protocol PRN Reason: Pain, Severe (Pain Scale 7-10) Last Admin: 01/29/22 09:29 Dose: 4 mg Documented By: MONA Ondansetron HCl (Ondansetron Hcl 4 Mg/2 Ml Vial) 4 mg IVPUSH Q8H PRN PRN Reason: Nausea and Vomiting Last Admin: 01/27/22 04:06 Dose: 4 mg Documented By: OCTAVIO Oxycodone HCl (Oxycodone Hcl Immed Release 5 Mg Tablet) 10 mg PO Q4H PRN PRN Reason: Pain, Moderate (Pain Scale 4-6 Last Admin: 01/29/22 11:21 Dose: 10 mg Documented By: MONA Sodium Chloride (0.9 % Sodium Chloride Flush 3 Ml Syringe) 3 ml IVFLUSH [facility] Last Admin: 01/29/22 08:42 Dose: 3 ml Documented By: MONA Labs CBC & Chem 7: 01/29/22 11:22 01/29/22 11:22 Labs: Laboratory Results - last 24 hr 01/28/22 01/29/22 01/29/22 12:27 05:56 05:56 MCV 72.1 L MCH 20.3 L MCHC 28.2 L RDW 17.1 H Plt Count 385 MPV 9.9 Absolute Nucleated RBC 0.000 Nucleated RBC % (auto) 0.0 Anion Gap 14 Estim Creat Clear Calc 146.0 Estimated GFR > 60 Random Glucose 115 Calcium 8.3 L Hep Bs Antigen Negative Hep Bs Antibody REACTIVE Hep B Core Total Ab Nonreactive Hepatitis C Ab (EIA) Nonreactive HIV 1&2 Ab/P24 Ag 4thGn Nonreactive 01/29/22 01/29/22 11:22 11:22 MCV 71.1 L MCH 19.9 L MCHC 28.1 L RDW 17.1 H Plt Count 375 MPV 8.9 L Absolute Nucleated RBC 0.000 Nucleated RBC % (auto) 0.0 Anion Gap 13 Estim Creat Clear Calc 139.3 Estimated GFR > 60 Random Glucose 99 Calcium 8.5 Hep Bs Antigen Hep Bs Antibody Hep B Core Total Ab Hepatitis C Ab (EIA) HIV 1&2 Ab/P24 Ag 4thGn Microbiology Microbiology Results: Microbiology 01/27/22 09:37 Blood Culture - Preliminary Blood - Venous No growth after 48 hours. 01/27/22 09:37 Blood Culture - Preliminary Blood - Venous No growth after 48 hours. Assessment and Plan (1) PID (acute pelvic inflammatory disease): Status: Acute (2) Iron deficiency: Status: Acute (3) Cocaine abuse: Status: Acute Plan 36-year-old female, not on prescription medications with pertinent history of cocaine use disorder, who presents to the emergency department for evaluation of abdominal pain; workup consisted with ruptured right hemorrhagic cyst verses PID 1.PID/ left hemorrhagic cyst - IV ceftriaxone 1 g/IV doxycycline 100 mg b.i.d/IV Flagyl 500 mg b.i.d. day (3) -WBC elevated with trending downward; hemoglobin stable. 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 Likely PID -Continue current plan and trend WBC 2.Cocaine use disorder - seen by Addiction Team;continue to follow 3. Iron deficiency anemia -completed iron infusion -transition to by mouth in a.m. -check CBC in a.m. DVT prophylaxis: recommend early ambulation Full code Patient will require ongoing hospitalization for IV antibiotics to treat PID Quality Stroke Does the patient have a stroke diagnosis?: No VTE Prior VTE?: No VTE Risk Level:: Medical - low VTE Device Contraindication: Treatment Not Indicated VTE Drug Contraindication: Treatment Not Indicated
[2022-01-29] MEDS: KCl 20 mEq in 5 % Dex/Lact Rin 20 MEQ/1,000 ML IV.SOLN 75 MEQ IVCONT ×2 (15:01→20:35)
[2022-01-29 15:23] VITALS: BP 118/60; PULSE 87; RESP 18; TEMP 37.4; O2SAT 99
[2022-01-29] MEDS: Docusate Sodium 100 MG CAPSULE PO (18:24)
[2022-01-29] MEDS: Milk of Magnesia 30 ML ORAL.SUSP PO (18:24)
[2022-01-29 20:00] VITALS: BP 116/58; PULSE 78; RESP 18; TEMP 37.8; O2SAT 96
[2022-01-29 23:32] VITALS: BP 124/57; PULSE 81; RESP 18; TEMP 36.6; O2SAT 96
[2022-01-30] VITALS (7 sets, daily range): BP systolic 115–142; BP diastolic 55–84; PULSE 79–88; RESP 18–20; TEMP 36.7–39.2; O2SAT 96–99
[2022-01-30] MEDS: Morphine Sulfate 2 MG/ML CARTRIDGE 4 MG IVPUSH ×5 (03:24→22:15)
[2022-01-30] MEDS: Acetaminophen 325 MG TABLET 650 MG PO (03:26)
[2022-01-30 04:48] LABS: Hepatitis A Antibody IgM 0.14 Index (0-0.79); ~Hepatitis A Antibody IgM Nonreactive (Nonreactive)
[2022-01-30 06:40] LABS: Basophils Absolute Auto 0.1 X10*3/uL (0.0-0.2); Basophils Percent Auto 0.4 % (0-2); Eosinophils Absolute Auto 0.1 X10*3/uL (0.0-0.4); Eosinophils Percent Auto 0.2 % (0-4); Hematocrit 25.9 % (37.0-47.0); Hemoglobin 7.3 g/dl (12.0-16.0); Imm Gran Abs Auto 1.17 X10*3/uL (0.00-0.03); Imm Gran Pct Auto 4.3 % (0.0-0.4); Lymphocytes Absolute Auto 2.1 X10*3/uL (1.2-4.9); Lymphocytes Percent Auto 7.8 % (20-40); MANUAL DIFF FLAG SCAN; Mean Corpuscular HGB Conc 28.2 g/dl (31.0-35.0); Mean Corpuscular Hemoglobin 20.3 pg (27.0-33.0); Mean Corpuscular Volume 71.9 fL (80.0-98.0); Mean Platelet Volume 9.8 fL (9.4-12.3); Monocytes Absolute Auto 1.4 X10*3/uL (0.1-1.2); Monocytes Percent Auto 5.1 % (2-11); Neutrophils Absolute Auto 22.4 x10*3/uL (2.0-8.3); Neutrophils Percent Auto 82.2 % (45-73); Platelet Count 426 X10*3/uL (160-400); Red Cell Distribution Width 17.4 % (11.0-16.0); SCAN SMEAR FLAG 1; White Blood Count 27.3 X10*3/uL (4.8-10.8)
[2022-01-30 06:56] LABS: Alanine Aminotransferase 19 U/L (0-31); Alkaline Phosphatase 145 U/L (39-117); Anion Gap 13 (12-20); Aspartate Amino Transferase 28 U/L (5-31); Bilirubin Total 0.2 mg/dL (0.0-1.0); Blood Urea Nitrogen 6 mg/dL (9-16); Calcium 8.3 mg/dL (8.4-10.2); Carbon Dioxide 27 mmol/L (22-29); Chloride 102 mmol/L (96-108); Creatinine Clr Calc Pharmacy 161.7; Estimated Glomerular Filt Rate > 60; Glucose Fasting 96 mg/dL (60-99); Potassium 3.4 mmol/L (3.3-5.1); Sodium 139 mmol/L (135-145); Total Protein 5.9 g/dL (6.5-8.0)
[2022-01-30 07:46] LABS: SLIDE REVIEW VERIFIED
[2022-01-30] MEDS: 0.9 % Sodium Chloride Flush 3 ML SYRINGE IVFLUSH ×2 (08:20→15:36)
--- NOTE | 2022-01-30 10:20 | P.PNOB_ITS ---
GLOBAL SALES DIRECTOR - Subjective Subjective Date of Service: 01/30/22 Interval history: Still complaining of significant right lower quadrant pain. No nausea or vomiting. Spiked fever of 102.6 at 03:00 Still on ceftriaxone 1 g Q 24, doxycycline 100 mg q.12 and Flagyl 500 mg IV q.12 Repeat CBC this morning, white count 27.3, H&H 7.3/25.2 ID consulted, see consult note CT of abdomen pelvis repeated: There is an IUD in the uterus. There are bilateral complex cystic adnexal lesions. There is question of right adnexal complex cystic area measuring up to 5.5 x 7.8 cm versus loculated fluid in the posterior cul-de-sac. This was seen greater in the left posterior cul-de-sac on 01/25/2022 exam favoring complex loculated ascites. There is diffuse stranding of the fat in the pelvis including the ret roperitoneum and presacrals regions. Given history of fever this probably represents PID. GRAPPLER Physical Exam Vitals Vital signs: Temp Pulse Resp BP Pulse Ox O2 Del Method 98.0 F 79 20 124/55 L 99 01/30/22 07:29 01/30/22 07:29 01/30/22 07:29 01/30/22 07:29 01/30/22 07:29 01/30/22 07:29 BMI result Body Mass Index 26.6 Abdomen Auscultation/Inspection/Palpation: Normal bowel sounds, Soft, Non-distended and Tenderness (amanda lower quadrant tenderness) GLOBAL SALES DIRECTOR - Prog Note: Results Labs CBC & Chem 7: 01/30/22 06:06 01/30/22 06:06 Labs: Laboratory Results - last 24 hr 01/28/22 01/29/22 01/29/22 12:27 11: 11: WBC 23.6 H RBC 3.91 L Hgb 7.8 L Hct 27.8 L MCV 71.1 L MCH 19.9 L MCHC 28.1 L RDW 17.1 H Plt Count 375 MPV 8.9 L Immature Gran % (Auto) Neut % (Auto) Lymph % (Auto) [place] % (Auto) Eos % (Auto) Baso % (Auto) Lymph # (Auto) [place] # (Auto) Eos # (Auto) Baso # (Auto) Abs Immat Gran (auto) Absolute Neuts (auto) Absolute Nucleated RBC 0.000 Nucleated RBC % (auto) 0.0 Smear Tech's Comments Sodium 141 Potassium 3.4 Chloride 104 Carbon Dioxide 27 Anion Gap 13 BUN 11 Creatinine 0.65 Estim Creat Clear Calc 139.3 Estimated GFR > 60 Random Glucose 99 Fasting Glucose Calcium 8.5 Total Bilirubin AST ALT Alkaline Phosphatase Total Protein Albumin Hepatitis A IgM Ab Nonreactive 01/30/22 01/30/22 06:06 06:06 WBC 27.3 H RBC 3.60 L Hgb 7.3 L Hct 25.9 L MCV 71.9 L MCH 20.3 L MCHC 28.2 L RDW 17.4 H Plt Count 426 H MPV 9.8 Immature Gran % (Auto) 4.3 H Neut % (Auto) 82.2 H Lymph % (Auto) 7.8 L [place] % (Auto) 5.1 Eos % (Auto) 0.2 Baso % (Auto) 0.4 Lymph # (Auto) 2.1 [place] # (Auto) 1.4 H Eos # (Auto) 0.1 Baso # (Auto) 0.1 Abs Immat Gran (auto) 1.17 H Absolute Neuts (auto) 22.4 H Absolute Nucleated RBC 0.000 Nucleated RBC % (auto) 0.0 Smear Tech's Comments VERIFIED Sodium 139 Potassium 3.4 Chloride 102 Carbon Dioxide 27 Anion Gap 13 BUN 6 L Creatinine 0.56 Estim Creat Clear Calc 161.7 Estimated GFR > 60 Random Glucose Fasting Glucose 96 Calcium 8.3 L Total Bilirubin 0.2 AST 28 ALT 19 Alkaline Phosphatase 145 H Total Protein 5.9 L Albumin 3.0 L Hepatitis A IgM Ab GLOBAL SALES DIRECTOR - A/P (1) PID (acute pelvic inflammatory disease): Status: Acute Assessment and Plan: Discussed the finding of the repeat CT of abdomen and pelvis with Dr. Howard, interventional radiologist , 5.5 x 7.8 cm loculated fluid in the posterior cul-de-sac, differential includes tubo-ovarian abscess. Given the clinical condition of the patient, persistent pain, leukocytosis and recurrent fever, with loculated complex fluid in the cul-de-sac on CT scan , despite 4 days of IV antibiotics, the clinical situation is very suspicious of tubo-ovarian abscess. I recommend pelvic abscess drainage. Discussed with Dr. Howard, TOA drainage, since the patient had eaten an hour ago, the procedure has to wait for 8 hours , unfortunately there will be no interventional radiology available at [facility] for drainage after hours. Dr. Rizo coordinated IR scheduling for pelvic abscess drainage with Dr. Vyas in a.m. NPO after midnight (2) Iron deficiency: Status: Acute Assessment and Plan: On iron transfusion (3) Ruptured ovarian cyst: Status: Acute Assessment and Plan: H&H stable despite mild drop since admission Pain management (4) Encounter for IUD removal: Status: Acute Assessment and Plan: Since the patient has an IUD in utero and has not been improving on antibiotic for PID treatment, recommended to the patient IUD removal, the patient agreed. After discussing with the patient the risks of the procedure including bleeding, infection, future , others Alternative options were discussed with the patient including but not limited: Do nothing. The patient signed the consent and agreed with the plan; all questions answered. HCG was done on 01/25 and was negative The patient was put in the dorsal lithotomy position a speculum was inserted in the vagina the IUD thread identified. Using a Danii clamp the thread was grasped and the IUD pulled out with no complications. The patient tolerated the procedure well and was advised to use a different method for contraception. The IUD was sent culture (5) Trichomonas infection: Status: Acute Assessment and Plan: Keep on metronidazole for a total of 7 days Time Spent With Patient Time: Total time spent is greater than 50% in coordination of care (as documented) at patient's floor/unit and/or counseling patient: Quality Measures - GRAPPLER H&P VTE Prior VTE?: No VTE Risk Level:: Medical - low VTE Device Contraindication: Treatment Not Indicated VTE Drug Contraindication: Treatment Not Indicated
[2022-01-30] MEDS: Milk of Magnesia 30 ML ORAL.SUSP PO (10:24)
[2022-01-30] MEDS: Docusate Sodium 100 MG CAPSULE PO (10:24)
[2022-01-30] MEDS: Doxycycline Hyclate 100 MG in 0.9 % Sodium Chloride 250 ML 166.67 MG IV ×2 (10:24→21:06)
[2022-01-30] MEDS: oxyCODONE HCl Immed Release 5 MG TABLET 10 MG PO (10:24)
--- NOTE | 2022-01-30 11:38 | P.PNIM_ITS ---
Subjective Subjective Date of Service: 01/30/22 Physical Exam Vital Signs: Vital Signs: Last Vital Signs Temp 98.5 F 01/30/22 11:28 Pulse 81 01/30/22 11:28 Resp 20 01/30/22 11:28 BP 130/84 01/30/22 11:28 Pulse Ox 97 01/30/22 11:28 O2 Del Method 01/30/22 11:28 BMI result Body Mass Index 26.6 Objective Data Active Medications Acetaminophen (Acetaminophen 325 Mg Tablet) 650 mg PO Q6H PRN PRN Reason: Pain, Mild (Pain Scale 1-3) Last Admin: 01/30/22 03:26 Dose: 650 mg Documented By: KANCHAN Docusate Sodium (Docusate Sodium 100 Mg Capsule) 100 mg PO BID PRN PRN Reason: Constipation Last Admin: 01/30/22 10:24 Dose: 100 mg Documented By: AMELIA Doxycycline Hyclate 100 mg/ (Sodium Chloride) 250 mls @ 166.67 mls/hr IV Q12H [facility] Last Admin: 01/30/22 10:24 Dose: 166.67 mls/hr Documented By: AMELIA Metronidazole (Flagyl) 500 mg in 100 mls @ 100 mls/hr IV Q12H [facility] Last Infusion: 01/30/22 00:45 Dose: 0 mls/hr Documented By: KANCHAN Ceftriaxone Sodium 1 gm/ (Sodium Chloride) 50 mls @ 100 mls/hr IV Q24H [facility] Last Infusion: 01/29/22 13:39 Dose: 0 mls/hr Documented By: MONA Lactated Ringer's (Lr) 1,000 mls @ 125 mls/hr IVCONT .Q8H [facility] Magnesium Hydroxide (Milk Of Magnesia 30 Ml Oral.Susp) 30 ml PO DAILY PRN PRN Reason: Constipation Last Admin: 01/30/22 10:24 Dose: 30 ml Documented By: AMELIA Melatonin (Melatonin 3 Mg Tablet) 6 mg PO BEDTIME PRN PRN Reason: Insomnia Morphine Sulfate (Morphine Sulfate 2 Mg/Ml Cartridge) 4 mg IVPUSH Q4H PRN; Protocol PRN Reason: Pain, Severe (Pain Scale 7-10) Last Admin: 01/30/22 08:20 Dose: 4 mg Documented By: AMELIA Ondansetron HCl (Ondansetron Hcl 4 Mg/2 Ml Vial) 4 mg IVPUSH Q8H PRN PRN Reason: Nausea and Vomiting Last Admin: 01/27/22 04:06 Dose: 4 mg Documented By: OCTAVIO Oxycodone HCl (Oxycodone Hcl Immed Release 5 Mg Tablet) 10 mg PO Q4H PRN PRN Reason: Pain, Moderate (Pain Scale 4-6 Last Admin: 01/30/22 10:24 Dose: 10 mg Documented By: AMELIA Sodium Chloride (0.9 % Sodium Chloride Flush 3 Ml Syringe) 3 ml IVFLUSH QSHIFT [facility] Last Admin: 01/30/22 08:20 Dose: 3 ml Documented By: AMELIA Labs CBC & Chem 7: 01/30/22 06:06 01/30/22 06:06 Labs: Laboratory Results - last 24 hr 01/28/22 01/29/22 01/30/22 12:27 11:22 06:06 MCV 71.9 L MCH 20.3 L MCHC 28.2 L RDW 17.4 H Plt Count 426 H MPV 9.8 Immature Gran % (Auto) 4.3 H Neut % (Auto) 82.2 H Lymph % (Auto) 7.8 L [place] % (Auto) 5.1 Eos % (Auto) 0.2 Baso % (Auto) 0.4 Lymph # (Auto) 2.1 [place] # (Auto) 1.4 H Eos # (Auto) 0.1 Baso # (Auto) 0.1 Abs Immat Gran (auto) 1.17 H Absolute Neuts (auto) 22.4 H Absolute Nucleated RBC 0.000 Nucleated RBC % (auto) 0.0 Smear Tech's Comments VERIFIED Anion Gap 13 Estim Creat Clear Calc 139.3 Estimated GFR > 60 Random Glucose 99 Fasting Glucose Calcium 8.5 Total Bilirubin AST ALT Alkaline Phosphatase Total Protein Albumin Hepatitis A IgM Ab Nonreactive 01/30/22 06:06 MCV MCH MCHC RDW Plt Count MPV Immature Gran % (Auto) Neut % (Auto) Lymph % (Auto) [place] % (Auto) Eos % (Auto) Baso % (Auto) Lymph # (Auto) [place] # (Auto) Eos # (Auto) Baso # (Auto) Abs Immat Gran (auto) Absolute Neuts (auto) Absolute Nucleated RBC Nucleated RBC % (auto) Smear Tech's Comments Anion Gap 13 Estim Creat Clear Calc 161.7 Estimated GFR > 60 Random Glucose Fasting Glucose 96 Calcium 8.3 L Total Bilirubin 0.2 AST 28 ALT 19 Alkaline Phosphatase 145 H Total Protein 5.9 L Albumin 3.0 L Hepatitis A IgM Ab Microbiology Microbiology Results: Microbiology 01/27/22 09:37 Blood Culture - Preliminary Blood - Venous No growth after 48 hours. 01/27/22 09:37 Blood Culture - Preliminary Blood - Venous No growth after 48 hours. Quality Stroke Does the patient have a stroke diagnosis?: No VTE Prior VTE?: No VTE Risk Level:: Medical - low VTE Device Contraindication: Treatment Not Indicated VTE Drug Contraindication: Treatment Not Indicated
--- NOTE | 2022-01-30 11:52 | P.PNIM_ITS ---
Subjective Subjective Date of Service: 01/30/22 Interval History: Continues work right lower quadrant pain. States poorly controlled by pain meds Review of Systems Admits to abdominal pain Denies nausea vomiting diarrhea Denies chest pain Denies fever chills Physical Exam Vital Signs: Vital Signs: Last Vital Signs Temp 98.5 F 01/30/22 11:28 Pulse 81 01/30/22 11:28 Resp 20 01/30/22 11:28 BP 130/84 01/30/22 11:28 Pulse Ox 97 01/30/22 11:28 O2 Del Method 01/30/22 11:28 BMI result Body Mass Index 26.6 Const: Other: Uncomfortable appearing in bed Resp: Other: Clear to auscultation bilaterally no rales rhonchi wheezes Cardio: Other: No S4; positive S1-S2; no S3 murmurs rubs or gallops GI: Other: Soft tender right lower quadrant with minimal palpation; mild guarding Extrem: Other: No edema Objective Data Active Medications Acetaminophen (Acetaminophen 325 Mg Tablet) 650 mg PO Q6H PRN PRN Reason: Pain, Mild (Pain Scale 1-3) Last Admin: 01/30/22 03:26 Dose: 650 mg Documented By: KANCHAN Docusate Sodium (Docusate Sodium 100 Mg Capsule) 100 mg PO BID PRN PRN Reason: Constipation Last Admin: 01/30/22 10:24 Dose: 100 mg Documented By: AMELIA Doxycycline Hyclate 100 mg/ (Sodium Chloride) 250 mls @ 166.67 mls/hr IV Q12H [facility] Last Admin: 01/30/22 10:24 Dose: 166.67 mls/hr Documented By: AMELIA Metronidazole (Flagyl) 500 mg in 100 mls @ 100 mls/hr IV Q12H [facility] Last Infusion: 01/30/22 00:45 Dose: 0 mls/hr Documented By: KANCHAN Ceftriaxone Sodium 1 gm/ (Sodium Chloride) 50 mls @ 100 mls/hr IV Q24H [facility] Last Infusion: 01/29/22 13:39 Dose: 0 mls/hr Documented By: MONA Lactated Ringer's (Lr) 1,000 mls @ 125 mls/hr IVCONT .Q8H [facility] Magnesium Hydroxide (Milk Of Magnesia 30 Ml Oral.Susp) 30 ml PO DAILY PRN PRN Reason: Constipation Last Admin: 01/30/22 10:24 Dose: 30 ml Documented By: AMELIA Melatonin (Melatonin 3 Mg Tablet) 6 mg PO BEDTIME PRN PRN Reason: Insomnia Morphine Sulfate (Morphine Sulfate 2 Mg/Ml Cartridge) 4 mg IVPUSH Q4H PRN; Pro tocol PRN Reason: Pain, Severe (Pain Scale 7-10) Last Admin: 01/30/22 08:20 Dose: 4 mg Documented By: AMELIA Ondansetron HCl (Ondansetron Hcl 4 Mg/2 Ml Vial) 4 mg IVPUSH Q8H PRN PRN Reason: Nausea and Vomiting Last Admin: 01/27/22 04:06 Dose: 4 mg Documented By: OCTAVIO Oxycodone HCl (Oxycodone Hcl Immed Release 5 Mg Tablet) 10 mg PO Q4H PRN PRN Reason: Pain, Moderate (Pain Scale 4-6 Last Admin: 01/30/22 10:24 Dose: 10 mg Documented By: AMELIA Sodium Chloride (0.9 % Sodium Chloride Flush 3 Ml Syringe) 3 ml IVFLUSH [facility] Last Admin: 01/30/22 08:20 Dose: 3 ml Documented By: AMELIA Labs CBC & Chem 7: 01/30/22 06:06 01/30/22 06:06 Labs: Laboratory Results - last 24 hr 01/28/22 01/30/22 01/30/22 12:27 06:06 06:06 MCV 71.9 L MCH 20.3 L MCHC 28.2 L RDW 17.4 H Plt Count 426 H MPV 9.8 Immature Gran % (Auto) 4.3 H Neut % (Auto) 82.2 H Lymph % (Auto) 7.8 L Parker % (Auto) 5.1 Eos % (Auto) 0.2 Baso % (Auto) 0.4 Lymph # (Auto) 2.1 Parker # (Auto) 1.4 H Eos # (Auto) 0.1 Baso # (Auto) 0.1 Abs Immat Gran (auto) 1.17 H Absolute Neuts (auto) 22.4 H Absolute Nucleated RBC 0.000 Nucleated RBC % (auto) 0.0 Smear Tech's Comments VERIFIED Anion Gap 13 Estim Creat Clear Calc 161.7 Estimated GFR > 60 Fasting Glucose 96 Calcium 8.3 L Total Bilirubin 0.2 AST 28 ALT 19 Alkaline Phosphatase 145 H Total Protein 5.9 L Albumin 3.0 L Hepatitis A IgM Ab Nonreactive Microbiology Microbiology Results: Microbiology 01/27/22 09:37 Blood Culture - Preliminary Blood - Venous No growth after 48 hours. 01/27/22 09:37 Blood Culture - Preliminary Blood - Venous No growth after 48 hours. Assessment and Plan (1) Ruptured ovarian cyst: Status: Acute (2) PID (acute pelvic inflammatory disease): Status: Acute (3) Iron deficiency: Status: Acute Plan 36-year-old female, not on prescription medications with pertinent history of cocaine use disorder, who presents to the emergency department for evaluation of abdominal pain; workup consisted with ruptured right hemorrhagic cyst verses PID. Fever spikes to 102 overnight 1.PID/ left hemorrhagic cyst - IV ceftriaxone 1 g/IV doxycycline 100 mg b.i.d/IV Flagyl 500 mg b.i.d. day (3) -WBC elevated, pain significant -will order repeat CT of abdomen pelvis with oral and IV contrast -reviewed case with ID; feels current coverage is sufficient feel this is a chemical pneumonitis from ruptured hemorrhagic cyst; can expect fevers for 3-5 days -follow-up CT; symptomatic management ?? 2.Cocaine use disorder - seen by Addiction Team;continue to follow 3. Iron deficiency? anemia -check CBC in a.m. -refusing oral secondary to constipation DVT prophylaxis:? recommend early ambulation Full code Patient will require ongoing hospitalization for IV antibiotics to treat PID Quality Stroke Does the patient have a stroke diagnosis?: No VTE Prior VTE?: No VTE Risk Level:: Medical - low VTE Device Contraindication: Treatment Not Indicated VTE Drug Contraindication: Treatment Not Indicated
[2022-01-30] MEDS: Morphine Sulfate 4 MG/ML CARTRIDGE IVPUSH (12:01)
--- NOTE | 2022-01-30 12:12 | P.CDIC_ITS ---
CDI Concurrent Query Documentation Clarification: PHYSICIAN'S DOCUMENTATION REQUEST Date of Query: 01/30/22 1212 Patient Name: Chloé Damon Admit Date: 01/26/22 Dear Doctor, A review of the medical record indicates additional documentation may be needed. Please review below and update the documentation accordingly. 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 * Acute on chronic iron deficiency anemia due to blood loss * Chronic iron deficiency anemia due to blood loss * Other ? please specify * Unable to determine Use of terms such as suspected, likely, concern for, or probable (associated with a specific diagnosis that is being evaluated, monitored, or treated as if i t exists) are acceptable and can be coded in the inpatient setting, when documented at the time of discharge. Thank you, Vanessa Bello MS, RN, CCRN Extension: [phone] Please use your independent medical judgment in providing your response. THIS QUERY IS PART OF THE PERMANENT MEDICAL RECORD Provider Response: Other Other Diagnosis: Unable to determine
[2022-01-30] MEDS: iohexoL 350 MG/ML 100 ML INFUS..BTL IV (12:30)
--- NOTE | 2022-01-30 12:38 | P.CNID_ITS ---
History of Present Illness Data of Consult Service Date: 01/30/22 Requesting physician: Kirill Rizo Primary Care Provider: Vicente Jaeger MD HPI Reason for consult: abdominal pain,left She present with five days of LLQ pain to ER and pain now is 10/10. She has fever today over 102 and has been afebrile last two days. She has no rash and no diarrhea (constipation). She has been started on Ceftriaxone Doxycycline and flagyl Cultures show gardnerella and trichomonas. [facility] Past Medical History Medical History Cocaine abuse Family History Family history: reviewed and not pertinent Social History Social History Household Members: Other Household Members Other:: cousin Housing: Apartment Do you presently have visiting nurse or other home services: No Patient Tobacco Use Status: Current everyday Tobacco user Cigarette Packs Per Day: 0.4 Cigarettes Per Day: 8.0 Years Smoked: 15 Second Hand Smoke Exposure: No service: No Current occupational status: employed Meds Allergies Allergy/AdvReac Type Severity Reaction Status Date / Time strawberry [STRAWBERRY] Allergy Mild ITCHING Verified 01/27/22 20:43 Active Medications: Current Medications Acetaminophen (Acetaminophen 325 Mg Tablet) 650 mg PO Q6H PRN PRN Reason: Pain, Mild (Pain Scale 1-3) Last Admin: 01/30/22 03:26 Dose: 650 mg Docusate Sodium (Docusate Sodium 100 Mg Capsule) 100 mg PO BID PRN PRN Reason: Constipation Last Admin: 01/30/22 10:24 Dose: 100 mg Doxycycline Hyclate 100 mg/ (Sodium Chloride) 250 mls @ 166.67 mls/hr IV Q12H [facility] Last Infusion: 01/30/22 12:17 Dose: Infused Metronidazole (Flagyl) 500 mg in 100 mls @ 100 mls/hr IV Q12H [facility] Last Infusion: 01/30/22 00:45 Dose: Infused Ceftriaxone Sodium 1 gm/ (Sodium Chloride) 50 mls @ 100 mls/hr IV Q24H [facility] Last Infusion: 01/29/22 13:39 Dose: Infused Lactated Ringer's (Lr) 1,000 mls @ 125 mls/hr IVCONT .Q8H [facility] Magnesium Hydroxide (Milk Of Magnesia 30 Ml Oral.Susp) 30 ml PO DAILY PRN PRN Reason: Constipation Last Admin: 01/30/22 10:24 Dose: 30 ml Melatonin (Melatonin 3 Mg Tablet) 6 mg PO BEDTIME PRN PRN Reason: Insomnia Morphine Sulfate (Morphine Sulfate 2 Mg/Ml Cartridge) 4 mg IVPUSH Q4H PRN; Protocol PRN Reason: Pain, Severe (Pain Scale 7-10) Last Admin: 01/30/22 08:20 Dose: 4 mg Ondansetron HCl (Ondansetron Hcl 4 Mg/2 Ml Vial) 4 mg IVPUSH Q8H PRN PRN Reason: Nausea and Vomiting Last Admin: 01/27/22 04:06 Dose: 4 mg Oxycodone HCl (Oxycodone Hcl Immed Release 5 Mg Tablet) 10 mg PO Q4H PRN PRN Reason: Pain, Moderate (Pain Scale 4-6 Last Admin: 01/30/22 10:24 Dose: 10 mg Sodium Chloride (0.9 % Sodium Chloride Flush 3 Ml Syringe) 3 ml IVFLUSH [facility] Last Admin: 01/30/22 08:20 Dose: 3 ml Home Medications Medication Instructions Recorded Confirmed Last Taken Type No Known Home Meds 01/26/22 01/26/22 Unknown History Physical Exam Vital Signs: Vital Signs: Last Vital Signs Temp 98.5 F 01/30/22 11:28 Pulse 81 01/30/22 11:28 Resp 20 01/30/22 11:28 BP 130/84 01/30/22 11:28 Pulse Ox 97 01/30/22 11:28 O2 Del Method 01/30/22 11:28 BMI result Body Mass Index 26.6 Const: General: cooperative HEENT: Head: Yes normal to inspection Face and sinus: Yes normal facial exam Mouth: Normal oral and palatal mucosa present Teeth and gingiva: dentition normal Eyes: General: appearance normal, both eyes and all related structures Pupils: Equal, round and reactive pupils present Resp: Effort & Inspection: normal respiratory effort Cardio: Rate: regular rate Rhythm: regular rhythm GI: Palpation (GI): Tenderness to palpation present (GI) in the LLQ : General: Yes no CVA tenderness Back/Spine/Pelvis: Back: no CVA tenderness Skin: General skin exam: no rashes or lesions noted Neuro: General: moves all extremities Cranial nerves: Yes Equal, round and reactive pupils present Extrem: General: Yes normal to inspection Psych: Appearance: grossly normal Results Labs CBC & Chem 7: 01/30/22 06:06 01/30/22 06:06 Labs: Short CBC 01/30/22 Range/Units 06:06 WBC 27.3 H (4.8-10.8) X10*3/uL Hgb 7.3 L (12.0-16.0) g/dl Hct 25.9 L (37.0-47.0) % Plt Count 426 H (160-400) X10*3/uL BMP 01/30/22 06:06 Sodium 139 Potassium 3.4 Chloride 102 Carbon Dioxide 27 BUN 6 L Creatinine 0.56 Calcium 8.3 L Liver Function 01/30/22 Range/Units 06:06 Total Bilirubin 0.2 (0.0-1.0) mg/dL AST 28 (5-31) U/L ALT 19 (0-31) U/L Alkaline Phosphatase 145 H (39-117) U/L Albumin 3.0 L (3.5-5.0) g/dL Microbiology Microbiology Results: Microbiology 01/27/22 09:37 Blood - Venous Blood Culture - Preliminary No growth after 48 hours. 01/27/22 09:37 Blood - Venous Blood Culture - Preliminary No growth after 48 hours. 01/25/22 00:00 Urine clean catch - Urine paul top Urine Culture - Final Assessment and Plan (1) Trichomonas infection: Status: Acute (2) PID (acute pelvic inflammatory disease): Status: Acute Episodic fever and leukemoid reaction are not unusual with PID despite adequate treatment with antibiotics due to peritoneal inflammation. She could possibly have abscess need to be drained not seen on initial CT Drug fever is possible to Ceftriaxone but doesnt have rash or diarrhea. (3) Ruptured ovarian cyst: Status: Acute Plan Continue antibiotics as is at this time. If fever returns switch to piperacillin tazobactam and stop Ceftriaxone and continue metronidazole and Doxycycline When improved complete 10-14 d course antibiotics,possible Doxycycline and flagyl with Ceftin
--- NOTE | 2022-01-30 15:47 | PC.NURSE ---
Patient with continuous pain. Reports pain not worse, but not better. 12/17. Medicated with morphine and oxycodone with some effect. Patient able to rest for short time. Down for CT this afternoon. Dr. Sheikh in later this afternoon to remove IUD. Sent down for culture.
[2022-01-30] MEDS: Lactated Ringers 1,000 ML 125 ML IVCONT (16:19)
[2022-01-30] MEDS: metroNIDAZOLE/NS 500 MG/100 ML PIGGYBACK 100 MG IV (16:23)
[2022-01-30] MEDS: Piperacillin Sodium/Tazobactam 3.375 GM in 0.9 % Sodium Chloride 50 ML IV (17:48)
[2022-01-31] VITALS (8 sets, daily range): BP systolic 117–146; BP diastolic 64–77; PULSE 70–82; RESP 16–20; TEMP 36.4–37.7; O2SAT 95–99
[2022-01-31] MEDS: oxyCODONE HCl Immed Release 5 MG TABLET 10 MG PO (00:52)
[2022-01-31] MEDS: metroNIDAZOLE/NS 500 MG/100 ML PIGGYBACK 100 MG IV ×2 (00:52→13:38)
[2022-01-31] MEDS: Piperacillin Sodium/Tazobactam 3.375 GM in 0.9 % Sodium Chloride 50 ML IV ×4 (00:53→21:44)
[2022-01-31] MEDS: 0.9 % Sodium Chloride Flush 3 ML SYRINGE IVFLUSH ×3 (00:53→15:39)
[2022-01-31] MEDS: Acetaminophen 325 MG TABLET 650 MG PO (00:56)
[2022-01-31] MEDS: Morphine Sulfate 2 MG/ML CARTRIDGE 4 MG IVPUSH ×4 (03:09→20:49)
[2022-01-31 05:57] LABS: Hematocrit 26.5 % (37.0-47.0); Hemoglobin 7.4 g/dl (12.0-16.0); Mean Corpuscular HGB Conc 27.9 g/dl (31.0-35.0); Mean Corpuscular Hemoglobin 20.1 pg (27.0-33.0); Mean Platelet Volume 9.7 fL (9.4-12.3); NRBC Pct Auto 0.1 /100WBC (0.0-0.2); Platelet Count 454 X10*3/uL (160-400); Red Blood Count 3.68 X10*6/uL (4.20-5.50); White Blood Count 28.8 X10*3/uL (4.8-10.8)
[2022-01-31 06:09] LABS: Alanine Aminotransferase 16 U/L (0-31); Alkaline Phosphatase 151 U/L (39-117); Anion Gap 13 (12-20); Aspartate Amino Transferase 19 U/L (5-31); Bilirubin Total 0.3 mg/dL (0.0-1.0); Blood Urea Nitrogen 4 mg/dL (9-16); Calcium 8.3 mg/dL (8.4-10.2); Carbon Dioxide 29 mmol/L (22-29); Chloride 100 mmol/L (96-108); Creatinine Clr Calc Pharmacy 153.5; Estimated Glomerular Filt Rate > 60; Glucose Fasting 89 mg/dL (60-99); INTERNATIONAL NORM RATIO 1.6 (0.9-1.1); Potassium 3.3 mmol/L (3.3-5.1); Prothrombin Time 18.7 SEC (10.0-13.1); Sodium 139 mmol/L (135-145); Total Protein 6.1 g/dL (6.5-8.0)
[2022-01-31 06:34] LABS: Acanthocytes 1+ (0-2) /OIF; Atypical Lymph Absolute Manual 0.3 x10*3/uL; Atypical Lymphs Percent Manual 1 % (0-6); Band Neutrophils Percent 9 % (3-5); Burr Cells 1+ (0-2) /OIF; Large Platelet PRESENT; Lymphocytes Absolute Manual 2.9 X10*3/uL (1.2-4.9); Lymphocytes Percent Manual 10 % (20-40); Macrocytosis 1+ (5-14) /OIF; Monocytes Absolute Manual 0.6 X10*3/uL (0.1-1.2); Monocytes Percent Manual 2 % (2-11); Neutrophils Absolute Manual 24.8 X10*3/uL (2.0-8.3); Neutrophils Percent Manual 77 % (45-73); Nucleated Red Blood Cells 1 /100WBC (0-0); Platelet Estimate INCREASED (NORMAL); Platelet Morphology Comment NORMAL; Promyelocytes Absolute 0.3 X10*3/uL; Promyelocytes Percent 1 %; RBC Morphology NOTED
[2022-01-31 06:35] LABS: Dohle Bodies PRESENT; Smudge Cells PRESENT
--- NOTE | 2022-01-31 07:11 | PC.NURSE ---
Patient had temp of 101.4. Tylenol 650 mg administered , temp 99.4 when rechecked. Will continue to monitor.
--- NOTE | 2022-01-31 09:08 | HO.ANESPROP2 ---
[facility] Active Problems Active Problems: All Active Problems (Updated 01/30/22 @ 14:46 by Guy Sheikh MD) Encounter for IUD removal (Acute) Trichomonas infection (Acute) PID (acute pelvic inflammatory disease) (Acute) Cocaine abuse (Acute) Iron deficiency (Acute) Ruptured ovarian cyst (Acute) Past Medical History Medical History Cocaine abuse Family History Family history of problems with anesthesia: No Surgical History History of Problems with Anesthesia: No Social History Social History Household Members: Other Household Members Other:: cousin Housing: Apartment Do you presently have visiting nurse or other home services: No Patient Tobacco Use Status: Current everyday Tobacco user Cigarette Packs Per Day: 0.4 Cigarettes Per Day: 8.0 Years Smoked: 15 Second Hand Smoke Exposure: No service: No Current occupational status: employed Meds Allergies Allergy/AdvReac Type Severity Reaction Status Date / Time strawberry [STRAWBERRY] Allergy Mild ITCHING Verified 01/27/22 20:43 Active Medications: Current Medications Acetaminophen (Acetaminophen 325 Mg Tablet) 650 mg PO Q6H PRN PRN Reason: Pain, Mild (Pain Scale 1-3) Last Admin: 01/31/22 00:56 Dose: 650 mg Docusate Sodium (Docusate Sodium 100 Mg Capsule) 100 mg PO BID PRN PRN Reason: Constipation Last Admin: 01/30/22 10:24 Dose: 100 mg Doxycycline Hyclate 100 mg/ (Sodium Chloride) 250 mls @ 166.67 mls/hr IV Q12H [facility] Last Infusion: 01/30/22 23:06 Dose: Infused Lactated Ringer's (Lr) 1,000 mls @ 125 mls/hr IVCONT .Q8H [facility] Last Infusion: 01/31/22 04:31 Dose: Infused Metronidazole (Flagyl) 500 mg in 100 mls @ 100 mls/hr IV Q12H [facility] Last Infusion: 01/31/22 04:31 Dose: Infused Piperacillin Sod/Tazobactam (Sod 3.375 gm/ Sodium Chloride) 50 mls @ 100 mls/hr IV Q6H [facility] Last Infusion: 01/31/22 09:05 Dose: Infused Magnesium Hydroxide (Milk Of Magnesia 30 Ml Oral.Susp) 30 ml PO DAILY PRN PRN Reason: Constipation Last Admin: 01/30/22 10:24 Dose: 30 ml Melatonin (Melatonin 3 Mg Tablet) 6 mg PO BEDTIME PRN PRN Reason: Insomnia Morphine Sulfate (Morphine Sulfate 2 Mg/Ml Cartridge) 4 mg IVPUSH Q4H PRN; Protocol PRN Reason: Pain, Severe (Pain Scale 7-10) Last Admin: 01/31/22 03:09 Dose: 4 mg Ondansetron HCl (Ondansetron Hcl 4 Mg/2 Ml Vial) 4 mg IVPUSH Q8H PRN PRN Reason: Nausea and Vomiting Last Admin: 01/27/22 04:06 Dose: 4 mg Oxycodone HCl (Oxycodone Hcl Immed Release 5 Mg Tablet) 10 mg PO Q4H PRN PRN Reason: Pain, Moderate (Pain Scale 4-6 Last Admin: 01/31/22 00:52 Dose: 10 mg Sodium Chloride (0.9 % Sodium Chloride Flush 3 Ml Syringe) 3 ml IVFSH [facility] Last Admin: 01/31/22 07:58 Dose: 3 ml Home Medications Medication Instructions Recorded Confirmed Last Taken Type No Known Home Meds 01/26/22 01/26/22 Unknown History Exam Exam Date and Time: January 31, 2022 0908 Height,Weight and Vital Signs: Height 5 ft 9 in Weight 81.647 kg Last Vital Signs Temp 98.7 F 01/31/22 07:38 Pulse 73 01/31/22 07:38 Resp 20 01/31/22 07:38 BP 137/64 01/31/22 07:38 Pulse Ox 96 01/31/22 07:38 O2 Del Method 01/31/22 07:38 Pertinent Lab Results Pertinent Lab Results: Laboratory Tests 01/25/22 01/25/22 01/25/22 19:16 19:16 19:16 WBC 11.6 H RBC 4.58 Hgb 9.1 L Hct 32.8 L MCV 71.6 L MCH 19.9 L MCHC 27.7 L RDW 17.2 H Plt Count 406 H MPV 9.1 L Immature Gran % (Auto) 0.4 Neut % (Auto) 76.1 H Lymph % (Auto) 17.2 L [place] % (Auto) 5.2 Eos % (Auto) 0.8 Baso % (Auto) 0.3 Lymph # (Auto) 2.0 [place] # (Auto) 0.6 Eos # (Auto) 0.1 Baso # (Auto) 0.0 Abs Immat Gran (auto) 0.05 H Absolute Neuts (auto) 8.8 H Absolute Nucleated RBC 0.000 Nucleated RBC % (auto) 0.0 Neutrophils % (Manual) Band Neutrophils % Lymphocytes % (Manual) Atypical Lymphs % (Man) Monocytes % (Manual) Promyelocytes % Abs Neuts (Manual) Lymphocytes # (Manual) Atyp Lymphs # (Manual) Monocytes # (Manual) Promyelocytes # Nucleated RBCs Smudge Cells Dohle Bodies Platelet Estimate Large Platelets Plt Morphology Comment RBC Morphology Macrocytosis [place] Cells Acanthocytes (Spur) Smear Tech's Comments PT 13.0 INR 1.1 Sodium 141 Potassium 3.6 Chloride 103 Carbon Dioxide 27 Anion Gap 15 BUN 11 Creatinine 0.77 Estim Creat Clear Calc 117.6 Estimated GFR > 60 Random Glucose 112 Fasting Glucose Lactic Acid Calcium 9.2 Magnesium 1.8 Iron TIBC % Saturation Unsat Iron Binding Total Bilirubin 0.2 Direct Bilirubin < 0.2 AST 12 ALT 9 Alkaline Phosphatase 92 Total Protein 7.6 Albumin 4.1 Lipase 14 Beta HCG, Quant < 2 Urine Color Urine Appearance Urine pH Ur Specific [place] Urine Protein Urine Glucose (UA) Urine Ketones Urine Blood Urine Nitrite Ur Leukocyte Esterase Urine RBC Urine WBC Ur Squamous Epith Cells Urine Bacteria Hyaline Casts Urine Opiates Screen Urine Fentanyl Screen Ur Barbiturates Screen Ur Phencyclidine Scrn Ur Amphetamines Screen U Benzodiazepines Scrn Urine Cocaine Screen U Marijuana (THC) Screen T.pallidum Ab (EIA) [place] species DNA Chlam trachomat DNA PCR COVID-19 (TEJA) COVID-19 Clin Com Gardnerella DNA Probe Hepatitis A IgM Ab Hep Bs Antigen Hep Bs Antibody Hep B Core Total Ab Hepatitis C Ab (EIA) HIV 1&2 Ab/P24 Ag 4thGn N.gonorrhoeae DNA (PCR) Trichomonas DNA Probe Blood Type Antibody Screen 01/25/22 01/25/22 01/25/22 19:16 19:17 22:37 WBC RBC Hgb Hct MCV MCH MCHC RDW Plt Count MPV Immature Gran % (Auto) Neut % (Auto) Lymph % (Auto) [place] % (Auto) Eos % (Auto) Baso % (Auto) Lymph # (Auto) [place] # (Auto) Eos # (Auto) Baso # (Auto) Abs Immat Gran (auto) Absolute Neuts (auto) Absolute Nucleated RBC Nucleated RBC % (auto) Neutrophils % (Manual) Band Neutrophils % Lymphocytes % (Manual) Atypical Lymphs % (Man) Monocytes % (Manual) Promyelocytes % Abs Neuts (Manual) Lymphocytes # (Manual) Atyp Lymphs # (Manual) Monocytes # (Manual) Promyelocytes # Nucleated RBCs Smudge Cells Dohle Bodies Platelet Estimate Large Platelets Plt Morphology Comment RBC Morphology Macrocytosis [place] Cells Acanthocytes (Spur) Smear Tech's Comments PT INR Sodium Potassium Chloride Carbon Dioxide Anion Gap BUN Creatinine Estim Creat Clear Calc Estimated GFR Random Glucose Fasting Glucose Lactic Acid 2.0 Calcium Magnesium Iron TIBC % Saturation Unsat Iron Binding Total Bilirubin Direct Bilirubin AST ALT Alkaline Phosphatase Total Protein Albumin Lipase Beta HCG, Quant Urine Color Yellow Urine Appearance Clear Urine pH 6.5 Ur Specific [place] >= 1.030 H Urine Protein 100 (2+) H Urine Glucose (UA) Negative Urine Ketones Negative Urine Blood Moderate (2+) H Urine Nitrite Negative Ur Leukocyte Esterase Trace H Urine RBC >20 H Urine WBC 11-20 Ur Squamous Epith Cells >20 Urine Bacteria None Seen Hyaline Casts 0-2 Urine Opiates Screen Urine Fentanyl Screen Ur Barbiturates Screen Ur Phencyclidine Scrn Ur Amphetamines Screen U Benzodiazepines Scrn Urine Cocaine Screen U Marijuana (THC) Screen T.pallidum Ab (EIA) [place] species DNA Chlam trachomat DNA PCR COVID-19 (TEJA) Negative COVID-19 Clin Com See Note Gardnerella DNA Probe Hepatitis A IgM Ab Hep Bs Antigen Hep Bs Antibody Hep B Core Total Ab Hepatitis C Ab (EIA) HIV 1&2 Ab/P24 Ag 4thGn N.gonorrhoeae DNA (PCR) Trichomonas DNA Probe Blood Type Antibody Screen 01/25/22 01/26/22 01/26/22 22:37 00:44 00:44 WBC RBC Hgb Hct MCV MCH MCHC RDW Plt Count MPV Immature Gran % (Auto) Neut % (Auto) Lymph % (Auto) [place] % (Auto) Eos % (Auto) Baso % (Auto) Lymph # (Auto) [place] # (Auto) Eos # (Auto) Baso # (Auto) Abs Immat Gran (auto) Absolute Neuts (auto) Absolute Nucleated RBC Nucleated RBC % (auto) Neutrophils % (Manual) Band Neutrophils % Lymphocytes % (Manual) Atypical Lymphs % (Man) Monocytes % (Manual) Promyelocytes % Abs Neuts (Manual) Lymphocytes # (Manual) Atyp Lymphs # (Manual) Monocytes # (Manual) Promyelocytes # Nucleated RBCs Smudge Cells Dohle Bodies Platelet Estimate Large Platelets Plt Morphology Comment RBC Morphology Macrocytosis Ann Cells Acanthocytes (Spur) Smear Tech's Comments PT INR Sodium Potassium Chloride Carbon Dioxide Anion Gap BUN Creatinine Estim Creat Clear Calc Estimated GFR Random Glucose Fasting Glucose Lactic Acid Calcium Magnesium Iron TIBC % Saturation Unsat Iron Binding Total Bilirubin Direct Bilirubin AST ALT Alkaline Phosphatase Total Protein Albumin Lipase Beta HCG, Quant Urine Color Urine Appearance Urine pH Ur Specific [place] Urine Protein Urine Glucose (UA) Urine Ketones Urine Blood Urine Nitrite Ur Leukocyte Esterase Urine RBC Urine WBC Ur Squamous Epith Cells Urine Bacteria Hyaline Casts Urine Opiates Screen POSITIVE H Urine Fentanyl Screen Not Detected Ur Barbiturates Screen Not Detected Ur Phencyclidine Scrn Not Detected Ur Amphetamines Screen Not Detected U Benzodiazepines Scrn Not Detected Urine Cocaine Screen POSITIVE H U Marijuana (THC) Screen Not Detected T.pallidum Ab (EIA) [place] species DNA Negative Chlam trachomat DNA PCR NOT DETECTED COVID-19 (TEJA) COVID-19 Clin Com Gardnerella DNA Probe Positive A Hepatitis A IgM Ab Hep Bs Antigen Hep Bs Antibody Hep B Core Total Ab Hepatitis C Ab (EIA) HIV 1&2 Ab/P24 Ag 4thGn N.gonorrhoeae DNA (PCR) NOT DETECTED Trichomonas DNA Probe Positive A Blood Type Antibody Screen 01/26/22 01/26/22 01/26/22 01:02 06:11 06:11 WBC 14.6 H 20.8 H RBC 4.23 4.33 Hgb 8.6 L 8.6 L Hct 30.3 L 30.3 L MCV 71.6 L 70.0 L MCH 20.3 L 19.9 L MCHC 28.4 L 28.4 L RDW 16.8 H 16.7 H Plt Count 368 358 MPV 9.3 L 9.4 Immature Gran % (Auto) 0.3 1.0 H Neut % (Auto) 88.4 H 91.3 H Lymph % (Auto) 6.1 L 3.1 L [place] % (Auto) 4.9 4.5 Eos % (Auto) 0.1 0.0 Baso % (Auto) 0.2 0.1 Lymph # (Auto) 0.9 L 0.7 L [place] # (Auto) 0.7 0.9 Eos # (Auto) 0.0 0.0 Baso # (Auto) 0.0 0.0 Abs Immat Gran (auto) 0.04 H 0.20 H Absolute Neuts (auto) 12.9 H 19.0 H Absolute Nucleated RBC 0.000 0.000 Nucleated RBC % (auto) 0.0 0.0 Neutrophils % (Manual) Band Neutrophils % Lymphocytes % (Manual) Atypical Lymphs % (Man) Monocytes % (Manual) Promyelocytes % Abs Neuts (Manual) Lymphocytes # (Manual) Atyp Lymphs # (Manual) Monocytes # (Manual) Promyelocytes # Nucleated RBCs Smudge Cells Dohle Bodies Platelet Estimate Large Platelets Plt Morphology Comment RBC Morphology Macrocytosis [place] Cells Acanthocytes (Spur) Smear Tech's Comments VERIFIED PT INR Sodium 139 Potassium 3.8 Chloride 104 Carbon Dioxide 25 Anion Gap 14 BUN 9 Creatinine 0.67 Estim Creat Clear Calc 135.2 Estimated GFR > 60 Random Glucose 117 H Fasting Glucose Lactic Acid Calcium 8.6 D Magnesium Iron 9 L TIBC 324 % Saturation 3 L Unsat Iron Binding 315 Total Bilirubin Direct Bilirubin AST ALT Alkaline Phosphatase Total Protein Albumin Lipase Beta HCG, Quant Urine Color Urine Appearance Urine pH Ur Specific [place] Urine Protein Urine Glucose (UA) Urine Ketones Urine Blood Urine Nitrite Ur Leukocyte Esterase Urine RBC Urine WBC Ur Squamous Epith Cells Urine Bacteria Hyaline Casts Urine Opiates Screen Urine Fentanyl Screen Ur Barbiturates Screen Ur Phencyclidine Scrn Ur Amphetamines Screen U Benzodiazepines Scrn Urine Cocaine Screen U Marijuana (THC) Screen T.pallidum Ab (EIA) [place] species DNA Chlam trachomat DNA PCR COVID-19 (TEJA) COVID-19 Clin Com Gardnerella DNA Probe Hepatitis A IgM Ab Hep Bs Antigen Hep Bs Antibody Hep B Core Total Ab Hepatitis C Ab (EIA) HIV 1&2 Ab/P24 Ag 4thGn N.gonorrhoeae DNA (PCR) Trichomonas DNA Probe Blood Type Antibody Screen 01/27/22 01/28/22 01/28/22 05:50 12:27 12:27 WBC 27.4 H 28.7 H RBC 4.30 4.08 L Hgb 8.4 L 8.2 L Hct 30.4 L 28.9 L MCV 70.7 L 70.8 L MCH 19.5 L 20.1 L MCHC 27.6 L 28.4 L RDW 16.7 H 16.8 H Plt Count 378 371 MPV 9.5 9.2 L Immature Gran % (Auto) Neut % (Auto) Lymph % (Auto) [place] % (Auto) Eos % (Auto) Baso % (Auto) Lymph # (Auto) [place] # (Auto) Eos # (Auto) Baso # (Auto) Abs Immat Gran (auto) Absolute Neuts (auto) Absolute Nucleated RBC 0.000 0.000 Nucleated RBC % (auto) 0.0 0.0 Neutrophils % (Manual) Band Neutrophils % Lymphocytes % (Manual) Atypical Lymphs % (Man) Monocytes % (Manual) Promyelocytes % Abs Neuts (Manual) Lymphocytes # (Manual) Atyp Lymphs # (Manual) Monocytes # (Manual) Promyelocytes # Nucleated RBCs Smudge Cells Dohle Bodies Platelet Estimate Large Platelets Plt Morphology Comment RBC Morphology Macrocytosis [place] Cells Acanthocytes (Spur) Smear Tech's Comments PT INR Sodium 140 Potassium 3.1 L Chloride 103 Carbon Dioxide 29 Anion Gap 11 L BUN 8 L Creatinine 0.60 Estim Creat Clear Calc 150.9 Estimated GFR > 60 Random Glucose 110 Fasting Glucose Lactic Acid Calcium 8.5 Magnesium Iron TIBC % Saturation Unsat Iron Binding Total Bilirubin Direct Bilirubin AST ALT Alkaline Phosphatase Total Protein Albumin Lipase Beta HCG, Quant Urine Color Urine Appearance Urine pH Ur Specific [place] Urine Protein Urine Glucose (UA) Urine Ketones Urine Blood Urine Nitrite Ur Leukocyte Esterase Urine RBC Urine WBC Ur Squamous Epith Cells Urine Bacteria Hyaline Casts Urine Opiates Screen Urine Fentanyl Screen Ur Barbiturates Screen Ur Phencyclidine Scrn Ur Amphetamines Screen U Benzodiazepines Scrn Urine Cocaine Screen U Marijuana (THC) Screen T.pallidum Ab (EIA) [place] species DNA Chlam trachomat DNA PCR COVID-19 (TEJA) COVID-19 Clin Com Gardnerella DNA Probe Hepatitis A IgM Ab Hep Bs Antigen Hep Bs Antibody Hep B Core Total Ab Hepatitis C Ab (EIA) HIV 1&2 Ab/P24 Ag 4thGn N.gonorrhoeae DNA (PCR) Trichomonas DNA Probe Blood Type Antibody Screen 01/28/22 01/28/22 01/29/22 12:27 12:27 05:56 WBC 23.3 H RBC 3.59 L Hgb 7.3 L Hct 25.9 L MCV 72.1 L MCH 20.3 L MCHC 28.2 L RDW 17.1 H Plt Count 385 MPV 9.9 Immature Gran % (Auto) Neut % (Auto) Lymph % (Auto) [place] % (Auto) Eos % (Auto) Baso % (Auto) Lymph # (Auto) [place] # (Auto) Eos # (Auto) Baso # (Auto) Abs Immat Gran (auto) Absolute Neuts (auto) Absolute Nucleated RBC 0.000 Nucleated RBC % (auto) 0.0 Neutrophils % (Manual) Band Neutrophils % Lymphocytes % (Manual) Atypical Lymphs % (Man) Monocytes % (Manual) Promyelocytes % Abs Neuts (Manual) Lymphocytes # (Manual) Atyp Lymphs # (Manual) Monocytes # (Manual) Promyelocytes # Nucleated RBCs Smudge Cells Dohle Bodies Platelet Estimate Large Platelets Plt Morphology Comment RBC Morphology Macrocytosis [place] Cells Acanthocytes (Spur) Smear Tech's Comments PT INR Sodium Potassium Chloride Carbon Dioxide Anion Gap BUN Creatinine Estim Creat Clear Calc Estimated GFR Random Glucose Fasting Glucose Lactic Acid Calcium Magnesium Iron TIBC % Saturation Unsat Iron Binding Total Bilirubin Direct Bilirubin AST ALT Alkaline Phosphatase Total Protein Albumin Lipase Beta HCG, Quant Urine Color Urine Appearance Urine pH Ur Specific [place] Urine Protein Urine Glucose (UA) Urine Ketones Urine Blood Urine Nitrite Ur Leukocyte Esterase Urine RBC Urine WBC Ur Squamous Epith Cells Urine Bacteria Hyaline Casts Urine Opiates Screen Urine Fentanyl Screen Ur Barbiturates Screen Ur Phencyclidine Scrn Ur Amphetamines Screen U Benzodiazepines Scrn Urine Cocaine Screen U Marijuana (THC) Screen T.pallidum Ab (EIA) Nonreactive [place] species DNA Chlam trachomat DNA PCR COVID-19 (TEJA) COVID-19 Clin Com Gardnerella DNA Probe Hepatitis A IgM Ab Nonreactive Hep Bs Antigen Negative Hep Bs Antibody REACTIVE Hep B Core Total Ab Nonreactive Hepatitis C Ab (EIA) Nonreactive HIV 1&2 Ab/P24 Ag 4thGn Nonreactive N.gonorrhoeae DNA (PCR) Trichomonas DNA Probe Blood Type Antibody Screen 01/29/22 01/29/22 01/29/22 05:56 11:22 11:22 WBC 23.6 H RBC 3.91 L Hgb 7.8 L Hct 27.8 L MCV 71.1 L MCH 19.9 L MCHC 28.1 L RDW 17.1 H Plt Count 375 MPV 8.9 L Immature Gran % (Auto) Neut % (Auto) Lymph % (Auto) [place] % (Auto) Eos % (Auto) Baso % (Auto) Lymph # (Auto) [place] # (Auto) Eos # (Auto) Baso # (Auto) Abs Immat Gran (auto) Absolute Neuts (auto) Absolute Nucleated RBC 0.000 Nucleated RBC % (auto) 0.0 Neutrophils % (Manual) Band Neutrophils % Lymphocytes % (Manual) Atypical Lymphs % (Man) Monocytes % (Manual) Promyelocytes % Abs Neuts (Manual) Lymphocytes # (Manual) Atyp Lymphs # (Manual) Monocytes # (Manual) Promyelocytes # Nucleated RBCs Smudge Cells Dohle Bodies Platelet Estimate Large Platelets Plt Morphology Comment RBC Morphology Macrocytosis Ann Cells Acanthocytes (Spur) Smear Tech's Comments PT INR Sodium 140 141 Potassium 3.2 L 3.4 Chloride 102 104 Carbon Dioxide 27 27 Anion Gap 14 13 BUN 12 11 Creatinine 0.62 0.65 Estim Creat Clear Calc 146.0 139.3 Estimated GFR > 60 > 60 Random Glucose 115 99 Fasting Glucose Lactic Acid Calcium 8.3 L 8.5 Magnesium Iron TIBC % Saturation Unsat Iron Binding Total Bilirubin Direct Bilirubin AST ALT Alkaline Phosphatase Total Protein Albumin Lipase Beta HCG, Quant Urine Color Urine Appearance Urine pH Ur Specific [place] Urine Protein Urine Glucose (UA) Urine Ketones Urine Blood Urine Nitrite Ur Leukocyte Esterase Urine RBC Urine WBC Ur Squamous Epith Cells Urine Bacteria Hyaline Casts Urine Opiates Screen Urine Fentanyl Screen Ur Barbiturates Screen Ur Phencyclidine Scrn Ur Amphetamines Screen U Benzodiazepines Scrn Urine Cocaine Screen U Marijuana (THC) Screen T.pallidum Ab (EIA) [place] species DNA Chlam trachomat DNA PCR COVID-19 (TEJA) COVID-19 Clin Com Gardnerella DNA Probe Hepatitis A IgM Ab Hep Bs Antigen Hep Bs Antibody Hep B Core Total Ab Hepatitis C Ab (EIA) HIV 1&2 Ab/P24 Ag 4thGn N.gonorrhoeae DNA (PCR) Trichomonas DNA Probe Blood Type Antibody Screen 01/30/22 01/30/22 01/30/22 06:06 06:06 17:48 WBC 27.3 H RBC 3.60 L Hgb 7.3 L Hct 25.9 L MCV 71.9 L MCH 20.3 L MCHC 28.2 L RDW 17.4 H Plt Count 426 H MPV 9.8 Immature Gran % (Auto) 4.3 H Neut % (Auto) 82.2 H Lymph % (Auto) 7.8 L [place] % (Auto) 5.1 Eos % (Auto) 0.2 Baso % (Auto) 0.4 Lymph # (Auto) 2.1 [place] # (Auto) 1.4 H Eos # (Auto) 0.1 Baso # (Auto) 0.1 Abs Immat Gran (auto) 1.17 H Absolute Neuts (auto) 22.4 H Absolute Nucleated RBC 0.000 Nucleated RBC % (auto) 0.0 Neutrophils % (Manual) Band Neutrophils % Lymphocytes % (Manual) Atypical Lymphs % (Man) Monocytes % (Manual) Promyelocytes % Abs Neuts (Manual) Lymphocytes # (Manual) Atyp Lymphs # (Manual) Monocytes # (Manual) Promyelocytes # Nucleated RBCs Smudge Cells Dohle Bodies Platelet Estimate Large Platelets Plt Morphology Comment RBC Morphology Macrocytosis [place] Cells Acanthocytes (Spur) Smear Tech's Comments VERIFIED PT INR Sodium 139 Potassium 3.4 Chloride 102 Carbon Dioxide 27 Anion Gap 13 BUN 6 L Creatinine 0.56 Estim Creat Clear Calc 161.7 Estimated GFR > 60 Random Glucose Fasting Glucose 96 Lactic Acid Calcium 8.3 L Magnesium Iron TIBC % Saturation Unsat Iron Binding Total Bilirubin 0.2 Direct Bilirubin AST 28 ALT 19 Alkaline Phosphatase 145 H Total Protein 5.9 L Albumin 3.0 L Lipase Beta HCG, Quant Urine Color Urine Appearance Urine pH Ur Specific [place] Urine Protein Urine Glucose (UA) Urine Ketones Urine Blood Urine Nitrite Ur Leukocyte Esterase Urine RBC Urine WBC Ur Squamous Epith Cells Urine Bacteria Hyaline Casts Urine Opiates Screen Urine Fentanyl Screen Ur Barbiturates Screen Ur Phencyclidine Scrn Ur Amphetamines Screen U Benzodiazepines Scrn Urine Cocaine Screen U Marijuana (THC) Screen T.pallidum Ab (EIA) [place] species DNA Chlam trachomat DNA PCR COVID-19 (TEJA) COVID-19 Clin Com Gardnerella DNA Probe Hepatitis A IgM Ab Hep Bs Antigen Hep Bs Antibody Hep B Core Total Ab Hepatitis C Ab (EIA) HIV 1&2 Ab/P24 Ag 4thGn N.gonorrhoeae DNA (PCR) Trichomonas DNA Probe Blood Type A Positive Antibody Screen NEGATIVE 01/31/22 01/31/22 01/31/22 05:23 05:23 05:23 WBC 28.8 H RBC 3.68 L Hgb 7.4 L Hct 26.5 L MCV 72.0 L MCH 20.1 L MCHC 27.9 L RDW 18.0 H Plt Count 454 H MPV 9.7 Immature Gran % (Auto) Cancelled Neut % (Auto) Cancelled Lymph % (Auto) Cancelled [place] % (Auto) Cancelled Eos % (Auto) Cancelled Baso % (Auto) Cancelled Lymph # (Auto) Cancelled [place] # (Auto) Cancelled Eos # (Auto) Cancelled Baso # (Auto) Cancelled Abs Immat Gran (auto) Cancelled Absolute Neuts (auto) Cancelled Absolute Nucleated RBC 0.020 H Nucleated RBC % (auto) 0.1 Neutrophils % (Manual) 77 H Band Neutrophils % 9 H Lymphocytes % (Manual) 10 L Atypical Lymphs % (Man) 1 Monocytes % (Manual) 2 Promyelocytes % 1 Abs Neuts (Manual) 24.8 H Lymphocytes # (Manual) 2.9 Atyp Lymphs # (Manual) 0.3 Monocytes # (Manual) 0.6 Promyelocytes # 0.3 Nucleated RBCs 1 H Smudge Cells PRESENT Dohle Bodies PRESENT Platelet Estimate INCREASED Large Platelets PRESENT Plt Morphology Comment NORMAL RBC Morphology NOTED Macrocytosis 1+ (5-14) [place] Cells 1+ (0-2) Acanthocytes (Spur) 1+ (0-2) Smear Tech's Comments PT 18.7 H INR 1.6 H Sodium 139 Potassium 3.3 Chloride 100 Carbon Dioxide 29 Anion Gap 13 BUN 4 L Creatinine 0.59 Estim Creat Clear Calc 153.5 Estimated GFR > 60 Random Glucose Fasting Glucose 89 Lactic Acid Calcium 8.3 L Magnesium Iron TIBC % Saturation Unsat Iron Binding Total Bilirubin 0.3 Direct Bilirubin AST 19 ALT 16 Alkaline Phosphatase 151 H Total Protein 6.1 L Albumin 3.0 L Lipase Beta HCG, Quant Urine Color Urine Appearance Urine pH Ur Specific [place] Urine Protein Urine Glucose (UA) Urine Ketones Urine Blood Urine Nitrite Ur Leukocyte Esterase Urine RBC Urine WBC Ur Squamous Epith Cells Urine Bacteria Hyaline Casts Urine Opiates Screen Urine Fentanyl Screen Ur Barbiturates Screen Ur Phencyclidine Scrn Ur Amphetamines Screen U Benzodiazepines Scrn Urine Cocaine Screen U Marijuana (THC) Screen T.pallidum Ab (EIA) [place] species DNA Chlam trachomat DNA PCR COVID-19 (TEJA) COVID-19 Clin Com Gardnerella DNA Probe Hepatitis A IgM Ab Hep Bs Antigen Hep Bs Antibody Hep B Core Total Ab Hepatitis C Ab (EIA) HIV 1&2 Ab/P24 Ag 4thGn N.gonorrhoeae DNA (PCR) Trichomonas DNA Probe Blood Type Antibody Screen Airway Mallampati Class: II TM Dist: >3cm Neck ROM: Full Assessment and Plan Assessment Anesthesia Assessment: Anesthesia Plan Discussed and Chart Reviewed Final Anesthetic Review Family History of Problems with Anesthesia: No History of Problems with Anesthesia: No NPO: Yes ASA Class: II and Emergency Final Preanesthetic Review: No Changes in Pt Med Stat, Meds/Allgs Chart Reviewed, Consent Obtained/Reviewed and Anes Risks/Benef Reviewed Patient Risk: Low Procedure Risk: Low Anesthetic Plan Anesthetic Plan: MAC: Disposition: Standard PACU
--- NOTE | 2022-01-31 10:17 | P.PNIM_ITS ---
Subjective Subjective Date of Service: 01/31/22 Interval History: Continues with significant discomfort Review of Systems Admits to abdominal pain Denies nausea vomiting diarrhea Denies chest pain Denies fever chills Physical Exam Vital Signs: Vital Signs: Last Vital Signs Temp 98.8 F 01/31/22 09:57 Pulse 82 01/31/22 09:57 Resp 16 01/31/22 09:57 BP 126/77 01/31/22 09:57 Pulse Ox 95 01/31/22 09:57 O2 Del Method 01/31/22 09:57 BMI result Body Mass Index 26.6 Const: Other: Uncomfortable appearing in bed Resp: Other: Clear to auscultation bilaterally no rales rhonchi wheezes Cardio: Other: No S4; positive S1-S2; no S3 murmurs rubs or gallops GI: Other: Soft tender right lower quadrant with minimal palpation; mild guarding Extrem: Other: No edema Objective Data Active Medications Acetaminophen (Acetaminophen 325 Mg Tablet) 650 mg PO Q6H PRN PRN Reason: Pain, Mild (Pain Scale 1-3) Last Admin: 01/31/22 00:56 Dose: 650 mg Documented By: THEODORE Docusate Sodium (Docusate Sodium 100 Mg Capsule) 100 mg PO BID PRN PRN Reason: Constipation Last Admin: 01/30/22 10:24 Dose: 100 mg Documented By: AMELIA Fentanyl (Fentanyl Citrate/Pf 100 Mcg/2 Ml Vial) 50 mcg IVPUSH Q5M PRN; Protocol PRN Reason: Pain, Severe (Pain Scale 7-10) Doxycycline Hyclate 100 mg/ (Sodium Chloride) 250 mls @ 166.67 mls/hr IV Q12H [facility] Last Infusion: 01/30/22 23:06 Dose: 0 mls/hr Documented By: ANA CRISTINA Lactated Ringer's (Lr) 1,000 mls @ 125 mls/hr IVCONT .Q8H [facility] Last Infusion: 01/31/22 04:31 Dose: 125 mls/hr Documented By: THEODORE Metronidazole (Flagyl) 500 mg in 100 mls @ 100 mls/hr IV Q12H [facility] Last Infusion: 01/31/22 04:31 Dose: 100 mls/hr Documented By: THEODORE Piperacillin Sod/Tazobactam (Sod 3.375 gm/ Sodium Chloride) 50 mls @ 100 mls/hr IV Q6H [facility] Last Infusion: 01/31/22 09:05 Dose: 0 mls/hr Documented By: AMELIA Promethazine HCl 12.5 mg/ (Sodium Chloride) 50.5 mls @ 202 mls/hr IV ONCE PRN PRN Reason: Nausea and Vomiting Magnesium Hydroxide (Milk Of Magnesia 30 Ml Oral.Susp) 30 ml PO DAILY PRN PRN Reason: Constipation Last Admin: 01/30/22 10:24 Dose: 30 ml Documented By: AMELIA Melatonin (Melatonin 3 Mg Tablet) 6 mg PO BEDTIME PRN PRN Reason: Insomnia Morphine Sulfate (Morphine Sulfate 2 Mg/Ml Cartridge) 4 mg IVPUSH Q4H PRN; Prot ocol PRN Reason: Pain, Severe (Pain Scale 7-10) Last Admin: 01/31/22 03:09 Dose: 4 mg Documented By: THEODORE Ondansetron HCl (Ondansetron Hcl 4 Mg/2 Ml Vial) 4 mg IVPUSH Q8H PRN PRN Reason: Nausea and Vomiting Last Admin: 01/27/22 04:06 Dose: 4 mg Documented By: OCTAVIO Ondansetron HCl (Ondansetron Hcl 4 Mg/2 Ml Vial) 4 mg IVPUSH ONCE PRN PRN Reason: Nausea and Vomiting Oxycodone HCl (Oxycodone Hcl Immed Release 5 Mg Tablet) 10 mg PO Q4H PRN PRN Reason: Pain, Moderate (Pain Scale 4-6 Last Admin: 01/31/22 00:52 Dose: 10 mg Documented By: THEODORE Oxycodone HCl (Oxycodone Hcl Immed Release 5 Mg Tablet) 5 mg PO ONCE PRN PRN Reason: Pain, Severe (Pain Scale 7-10) Sodium Chloride (0.9 % Sodium Chloride Flush 3 Ml Syringe) 3 ml IVFLUSH [facility] Last Admin: 01/31/22 07:58 Dose: 3 ml Documented By: AMELIA Labs CBC & Chem 7: 01/31/22 05:23 01/31/22 05:23 Labs: Laboratory Results - last 24 hr 01/30/22 01/31/22 01/31/22 17:48 05:23 05:23 MCV 72.0 L MCH 20.1 L MCHC 27.9 L RDW 18.0 H Plt Count 454 H MPV 9.7 Immature Gran % (Auto) Cancelled Neut % (Auto) Cancelled Lymph % (Auto) Cancelled [place] % (Auto) Cancelled Eos % (Auto) Cancelled Baso % (Auto) Cancelled Lymph # (Auto) Cancelled [place] # (Auto) Cancelled Eos # (Auto) Cancelled Baso # (Auto) Cancelled Abs Immat Gran (auto) Cancelled Absolute Neuts (auto) Cancelled Absolute Nucleated RBC 0.020 H Nucleated RBC % (auto) 0.1 Neutrophils % (Manual) 77 H Band Neutrophils % 9 H Lymphocytes % (Manual) 10 L Atypical Lymphs % (Man) 1 Monocytes % (Manual) 2 Promyelocytes % 1 Abs Neuts (Manual) 24.8 H Lymphocytes # (Manual) 2.9 Atyp Lymphs # (Manual) 0.3 Monocytes # (Manual) 0.6 Promyelocytes # 0.3 Nucleated RBCs 1 H Smudge Cells PRESENT Dohle Bodies PRESENT Platelet Estimate INCREASED Large Platelets PRESENT Plt Morphology Comment NORMAL RBC Morphology NOTED Macrocytosis 1+ (5-14) Ann Cells 1+ (0-2) Acanthocytes (Spur) 1+ (0-2) PT INR Anion Gap 13 Estim Creat Clear Calc 153.5 Estimated GFR > 60 Fasting Glucose 89 Calcium 8.3 L Total Bilirubin 0.3 AST 19 ALT 16 Alkaline Phosphatase 151 H Total Protein 6.1 L Albumin 3.0 L Blood Type A Positive Antibody Screen NEGATIVE 01/31/22 05:23 MCV MCH MCHC RDW Plt Count MPV Immature Gran % (Auto) Neut % (Auto) Lymph % (Auto) [place] % (Auto) Eos % (Auto) Baso % (Auto) Lymph # (Auto) [place] # (Auto) Eos # (Auto) Baso # (Auto) Abs Immat Gran (auto) Absolute Neuts (auto) Absolute Nucleated RBC Nucleated RBC % (auto) Neutrophils % (Manual) Band Neutrophils % Lymphocytes % (Manual) Atypical Lymphs % (Man) Monocytes % (Manual) Promyelocytes % Abs Neuts (Manual) Lymphocytes # (Manual) Atyp Lymphs # (Manual) Monocytes # (Manual) Promyelocytes # Nucleated RBCs Smudge Cells Dohle Bodies Platelet Estimate Large Platelets Plt Morphology Comment RBC Morphology Macrocytosis [place] Cells Acanthocytes (Spur) PT 18.7 H INR 1.6 H Anion Gap Estim Creat Clear Calc Estimated GFR Fasting Glucose Calcium Total Bilirubin AST ALT Alkaline Phosphatase Total Protein Albumin Blood Type Antibody Screen Microbiology Microbiology Results: Microbiology 01/29/22 19:03 Blood Culture - Preliminary Blood - Venous No growth after 24 hours. 01/29/22 19:03 Blood Culture - Preliminary Blood - Venous No growth after 24 hours. Assessment and Plan (1) Tubal ovarian abscess: Status: Acute (2) PID (acute pelvic inflammatory disease): Status: Acute (3) Cocaine abuse: Status: Acute (4) Iron deficiency: Status: Acute Plan 36-year-old female, not on prescription medications with pertinent history of cocaine use disorder, who presents to the emergency department for evaluation of abdominal pain; workup consisted with ruptured right hemorrhagic cyst verses PID. Fever spikes to 102 overnight 1. BINU -Zosyn(1)/IV doxycycline 100 mg b.i.d/IV Flagyl 500 mg b.i.d. day (4) -CT-guided drainage this a.m... Await results ?? 2.Cocaine use disorder - seen by Addiction Team;continue to follow 3. Iron deficiency? anemia -check CBC in a.m. -refusing oral secondary to constipation DVT prophylaxis:? recommend early ambulation Full code Patient will require ongoing hospitalization for IV antibiotics to treat PID Quality Stroke Does the patient have a stroke diagnosis?: No VTE Prior VTE?: No VTE Risk Level:: Medical - low VTE Device Contraindication: Treatment Not Indicated VTE Drug Contraindication: Treatment Not Indicated
[2022-01-31] MEDS: Doxycycline Hyclate 100 MG in 0.9 % Sodium Chloride 250 ML 166.67 MG IV ×2 (11:31→22:26)
--- NOTE | 2022-01-31 16:10 | PM.GYNPNOP ---
PREVOCATIONAL/REHABILITATION COUNSELOR - Subjective Subjective Date of Service: 02/01/22 Interval history: The patient had CT-guided pelvic abscess drained, KAREN drain has been changed multiple times due continuous abscess drainage and the patient is doing better, her pain has improved. Abscess drained was sent for g stain and culture. IUD removed yesterday was sent for Actinomyces culture, but general culture was done CBC in a.m. prior to drainage showed worsening leukocytosis and patient had 101.4 temperature spiked a overnight at 23:34 ID changed ceftriaxone to Zosyn, the patient stayed on doxycycline Flagyl GLOVE FINISHER Physical Exam Vitals Vital signs: Temp Pulse Resp BP Pulse Ox O2 Del Method O2 Flow Rate 98.8 F 82 18 122/74 99 2 01/31/22 15:35 01/31/22 15:35 01/31/22 15:35 01/31/22 15:35 01/31/22 15:35 01/31/22 15:35 01/31/22 10:11 BMI result Body Mass Index 26.6 PREVOCATIONAL/REHABILITATION COUNSELOR - Prog Note: Results Labs CBC & Chem 7: 02/01/22 05:16 02/01/22 05:16 Labs: Laboratory Results - last 24 hr 01/30/22 01/31/22 01/31/22 17:48 05:23 05:23 WBC 28.8 H RBC 3.68 L Hgb 7.4 L Hct 26.5 L MCV 72.0 L MCH 20.1 L MCHC 27.9 L RDW 18.0 H Plt Count 454 H MPV 9.7 Immature Gran % (Auto) Cancelled Neut % (Auto) Cancelled Lymph % (Auto) Cancelled [place] % (Auto) Cancelled Eos % (Auto) Cancelled Baso % (Auto) Cancelled Lymph # (Auto) Cancelled [place] # (Auto) Cancelled Eos # (Auto) Cancelled Baso # (Auto) Cancelled Abs Immat Gran (auto) Cancelled Absolute Neuts (auto) Cancelled Absolute Nucleated RBC 0.020 H Nucleated RBC % (auto) 0.1 Neutrophils % (Manual) 77 H Band Neutrophils % 9 H Lymphocytes % (Manual) 10 L Atypical Lymphs % (Man) 1 Monocytes % (Manual) 2 Promyelocytes % 1 Abs Neuts (Manual) 24.8 H Lymphocytes # (Manual) 2.9 Atyp Lymphs # (Manual) 0.3 Monocytes # (Manual) 0.6 Promyelocytes # 0.3 Nucleated RBCs 1 H Smudge Cells PRESENT Dohle Bodies PRESENT Platelet Estimate INCREASED Large Platelets PRESENT Plt Morphology Comment NORMAL RBC Morphology NOTED Macrocytosis 1+ (5-14) Ann Cells 1+ (0-2) Acanthocytes (Spur) 1+ (0-2) PT INR Sodium 139 Potassium 3.3 Chloride 100 Carbon Dioxide 29 Anion Gap 13 BUN 4 L Creatinine 0.59 Estim Creat Clear Calc 153.5 Estimated GFR > 60 Fasting Glucose 89 Calcium 8.3 L Total Bilirubin 0.3 AST 19 ALT 16 Alkaline Phosphatase 151 H Total Protein 6.1 L Albumin 3.0 L Blood Type A Positive Antibody Screen NEGATIVE 01/31/22 05:23 WBC RBC Hgb Hct MCV MCH MCHC RDW Plt Count MPV Immature Gran % (Auto) Neut % (Auto) Lymph % (Auto) [place] % (Auto) Eos % (Auto) Baso % (Auto) Lymph # (Auto) [place] # (Auto) Eos # (Auto) Baso # (Auto) Abs Immat Gran (auto) Absolute Neuts (auto) Absolute Nucleated RBC Nucleated RBC % (auto) Neutrophils % (Manual) Band Neutrophils % Lymphocytes % (Manual) Atypical Lymphs % (Man) Monocytes % (Manual) Promyelocytes % Abs Neuts (Manual) Lymphocytes # (Manual) Atyp Lymphs # (Manual) Monocytes # (Manual) Promyelocytes # Nucleated RBCs Smudge Cells Dohle Bodies Platelet Estimate Large Platelets Plt Morphology Comment RBC Morphology Macrocytosis [place] Cells Acanthocytes (Spur) PT 18.7 H INR 1.6 H Sodium Potassium Chloride Carbon Dioxide Anion Gap BUN Creatinine Estim Creat Clear Calc Estimated GFR Fasting Glucose Calcium Total Bilirubin AST ALT Alkaline Phosphatase Total Protein Albumin Blood Type Antibody Screen PREVOCATIONAL/REHABILITATION COUNSELOR - A/P (1) Tubal ovarian abscess: Status: Acute Assessment and Plan: Status post CT-guided pelvic abscess drainage, will check g stain and culture, will keep patient on ID recommendation Zosyn, doxycycline and Flagyl Pain management Will repeat CBC in a.m. Assessment/Plan Procedure/Diagnosis: Procedures Operation Date: 01/31/22 08:30 <No data on this case meets the specified criteria> Time Spent With Patient Time: Total time spent is greater than 50% in coordination of care (as documented) at patient's floor/unit and/or counseling patient: Quality Measures - GLOVE FINISHER H&P VTE Prior VTE?: No VTE Risk Level:: Medical - low VTE Device Contraindication: Treatment Not Indicated VTE Drug Contraindication: Treatment Not Indicated
[2022-01-31] MEDS: Lactated Ringers 1,000 ML 125 ML IVCONT (17:27)
[2022-02-01] VITALS (8 sets, daily range): BP systolic 113–139; BP diastolic 55–78; PULSE 59–88; RESP 16–18; TEMP 36.1–37; O2SAT 96–99
[2022-02-01] MEDS: metroNIDAZOLE/NS 500 MG/100 ML PIGGYBACK 100 MG IV ×2 (00:08→13:20)
[2022-02-01] MEDS: Morphine Sulfate 2 MG/ML CARTRIDGE 4 MG IVPUSH ×3 (02:58→19:29)
[2022-02-01] MEDS: Piperacillin Sodium/Tazobactam 3.375 GM in 0.9 % Sodium Chloride 50 ML IV ×4 (03:04→21:47)
[2022-02-01 05:56] LABS: Hematocrit 24.3 % (37.0-47.0); Mean Corpuscular Hemoglobin 20.2 pg (27.0-33.0); Mean Corpuscular Volume 72.3 fL (80.0-98.0); Mean Platelet Volume 9.4 fL (9.4-12.3); NRBC Pct Auto 0.1 /100WBC (0.0-0.2); Platelet Count 446 X10*3/uL (160-400); Red Blood Count 3.36 X10*6/uL (4.20-5.50); Red Cell Distribution Width 18.6 % (11.0-16.0); White Blood Count 27.4 X10*3/uL (4.8-10.8)
[2022-02-01 06:00] LABS: Hemoglobin 6.8 g/dl (12.0-16.0)
--- NOTE | 2022-02-01 06:11 | PM.EVENT ---
Event Note Date of Service: 02/01/22 Event Note: Hgb <7. transfusing 1 unit of prbc
[2022-02-01 06:17] LABS: Alanine Aminotransferase 17 U/L (0-31); Albumin Level 2.9 g/dL (3.5-5.0); Alkaline Phosphatase 129 U/L (39-117); Anion Gap 14 (12-20); Aspartate Amino Transferase 16 U/L (5-31); Band Neutrophils Percent 3 % (3-5); Bilirubin Total < 0.2 mg/dL (0.0-1.0); Blood Urea Nitrogen 8 mg/dL (9-16); Calcium 8.7 mg/dL (8.4-10.2); Carbon Dioxide 29 mmol/L (22-29); Chloride 102 mmol/L (96-108); Creatinine Clr Calc Pharmacy 137.2; Estimated Glomerular Filt Rate > 60; Glucose Fasting 167 mg/dL (60-99); Macrocytosis 1+ (5-14) /OIF; Metamyelocytes Absolute 0.3 X10*3/uL; Metamyelocytes Percent 1 %; Myelocytes Absolute 0.3 X10*/uL; Myelocytes Percent 1 %; Neutrophils Absolute Manual 26.9 X10*3/uL (2.0-8.3); Neutrophils Percent Manual 95 % (45-73); Ovalocytes 1+ (5-14) /OIF; Platelet Estimate SLIGHTLY INCREASED (NORMAL); Platelet Morphology Comment NORMAL; Potassium 3.7 mmol/L (3.3-5.1); RBC Morphology NOTED; Schistocytes 1+ (0-2) /OIF; Sodium 141 mmol/L (135-145)
[2022-02-01 06:18] LABS: Polychromasia 1+ (0-2) /OIF; Smudge Cells PRESENT; Target Cells 1+ (5-14) /OIF
--- NOTE | 2022-02-01 08:28 | PM.GYNPNOP ---
CAT DRIVER - Subjective Subjective Date of Service: 02/01/22 Interval history: The patient had CT-guided pelvic abscess drained, KAREN drain has been changed multiple times due continuous abscess drainage and the patient is doing better, her pain has improved. Abscess drained was sent for g stain and culture. IUD removed yesterday was sent for Actinomyces culture, but general culture was done CBC in a.m. prior to drainage showed worsening leukocytosis and patient had 101.4 temperature spiked a overnight at 23:34 ID changed ceftriaxone to Zosyn, the patient stayed on doxycycline Flagyl COFFEE SHOP MANAGER Physical Exam Vitals Vital signs: Temp Pulse Resp BP Pulse Ox O2 Del Method O2 Flow Rate 97.1 F 59 18 120/65 99 2 02/01/22 07:55 02/01/22 07:55 02/01/22 07:55 02/01/22 07:55 02/01/22 07:55 02/01/22 07:55 01/31/22 10:11 BMI result Body Mass Index 26.6 CAT DRIVER - Prog Note: Results Labs CBC & Chem 7: 02/01/22 05:16 02/01/22 05:16 Labs: Laboratory Results - last 24 hr 01/30/22 02/01/22 02/01/22 17:48 05:16 05:16 WBC 27.4 H RBC 3.36 L Hgb 6.8 L* Hct 24.3 L MCV 72.3 L MCH 20.2 L MCHC 28.0 L RDW 18.6 H Plt Count 446 H MPV 9.4 Immature Gran % (Auto) Cancelled Neut % (Auto) Cancelled Lymph % (Auto) Cancelled [place] % (Auto) Cancelled Eos % (Auto) Cancelled Baso % (Auto) Cancelled Lymph # (Auto) Cancelled [place] # (Auto) Cancelled Eos # (Auto) Cancelled Baso # (Auto) Cancelled Abs Immat Gran (auto) Cancelled Absolute Neuts (auto) Cancelled Absolute Nucleated RBC 0.040 H Nucleated RBC % (auto) 0.1 Neutrophils % (Manual) 95 H Band Neutrophils % 3 Metamyelocytes % 1 Myelocytes % 1 Abs Neuts (Manual) 26.9 H Metamyelocytes # 0.3 Myelocytes # 0.3 Smudge Cells PRESENT Platelet Estimate SLIGHTLY INCREASED Plt Morphology Comment NORMAL RBC Morphology NOTED Polychromasia 1+ (0-2) Macrocytosis 1+ (5-14) Target Cells 1+ (5-14) Ovalocytes 1+ (5-14) Schistocytes 1+ (0-2) Sodium 141 Potassium 3.7 Chloride 102 Carbon Dioxide 29 Anion Gap 14 BUN 8 L Creatinine 0.66 Estim Creat Clear Calc 137.2 Estimated GFR > 60 Fasting Glucose 167 H Calcium 8.7 Total Bilirubin < 0.2 AST 16 ALT 17 Alkaline Phosphatase 129 H Total Protein 6.0 L Albumin 2.9 L Blood Type A Positive Antibody Screen NEGATIVE Crossmatch See Detail CAT DRIVER - A/P (1) Tubal ovarian abscess: Status: Acute Assessment and Plan: Continue IV antibiotics Zosyn, Flagyl, doxycycline Repeat CBC in a.m., keep monitoring white count, fever and pain level Pain management Check abscess culture (2) Ruptured ovarian cyst: Status: Acute Assessment and Plan: Check CBC in a.m. I spent a total of 20 minutes reviewing the chart, communicating with Dr. Rizo and documenting in the medical record Assessment/Plan Procedure/Diagnosis: Procedures Operation Date: 01/31/22 08:30 <No data on this case meets the specified criteria> Time Spent With Patient Time: Total time spent is greater than 50% in coordination of care (as documented) at patient's floor/unit and/or counseling patient: Quality Measures - COFFEE SHOP MANAGER H&P VTE Prior VTE?: No VTE Risk Level:: Medical - low VTE Device Contraindication: Treatment Not Indicated VTE Drug Contraindication: Treatment Not Indicated
--- NOTE | 2022-02-01 08:34 | PM.GYNPNOP ---
BEER MAKER - Subjective Subjective Date of Service: 02/01/22 Interval history: The patient is doing well today, pain-free, ambulating. KAREN drain from the CT-guided pelvic abscess drainage has being continuously draining pus fluid. Abscess g stain showed no organisms, +4 polys, preliminary cultures= no growth to date Blood cultures negative Last morphine dose was at 02:58, since then the patient has been pain-free, no nausea or vomiting. Afebrile 24 hours On Zosyn, the patient stayed on doxycycline Flagyl This a.m. 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 Physical Exam Vitals Vital signs: Temp Pulse Resp BP Pulse Ox O2 Del Method O2 Flow Rate 97.1 F 59 18 120/65 99 2 02/01/22 07:55 02/01/22 07:55 02/01/22 07:55 02/01/22 07:55 02/01/22 07:55 02/01/22 07:55 01/31/22 10:11 BMI result Body Mass Index 26.6 Abdomen Auscultation/Inspection/Palpation: Normal bowel sounds, Soft and No tenderness BEER MAKER - Prog Note: Results Labs CBC & Chem 7: 02/01/22 05:16 02/01/22 05:16 Labs: Laboratory Results - last 24 hr 01/30/22 02/01/22 02/01/22 17:48 05:16 05:16 WBC 27.4 H RBC 3.36 L Hgb 6.8 L* Hct 24.3 L MCV 72.3 L MCH 20.2 L MCHC 28.0 L RDW 18.6 H Plt Count 446 H MPV 9.4 Immature Gran % (Auto) Cancelled Neut % (Auto) Cancelled Lymph % (Auto) Cancelled [place] % (Auto) Cancelled Eos % (Auto) Cancelled Baso % (Auto) Cancelled Lymph # (Auto) Cancelled [place] # (Auto) Cancelled Eos # (Auto) Cancelled Baso # (Auto) Cancelled Abs Immat Gran (auto) Cancelled Absolute Neuts (auto) Cancelled Absolute Nucleated RBC 0.040 H Nucleated RBC % (auto) 0.1 Neutrophils % (Manual) 95 H Band Neutrophils % 3 Metamyelocytes % 1 Myelocytes % 1 Abs Neuts (Manual) 26.9 H Metamyelocytes # 0.3 Myelocytes # 0.3 Smudge Cells PRESENT Platelet Estimate SLIGHTLY INCREASED Plt Morphology Comment NORMAL RBC Morphology NOTED Polychromasia 1+ (0-2) Macrocytosis 1+ (5-14) Target Cells 1+ (5-14) Ovalocytes 1+ (5-14) Schistocytes 1+ (0-2) Sodium 141 Potassium 3.7 Chloride 102 Carbon Dioxide 29 Anion Gap 14 BUN 8 L Creatinine 0.66 Estim Creat Clear Calc 137.2 Estimated GFR > 60 Fasting Glucose 167 H Calcium 8.7 Total Bilirubin < 0.2 AST 16 ALT 17 Alkaline Phosphatase 129 H Total Protein 6.0 L Albumin 2.9 L Blood Type A Positive Antibody Screen NEGATIVE Crossmatch See Detail BEER MAKER - A/P (1) Pelvic abscess: Status: Acute Assessment and Plan: Status post CT-guided drainage yesterday, IUD removed 2 days ago On Zosyn, doxycycline and Flagyl, White count mildly lower today compared to yesterday,, afebrile last 32 hours, pain-free last morphine dose 5+ hours, abdominal exam within normal Explained to the patient that pelvic abscess could be secondary to PID/TOA versus ruptured ovarian cyst with infected intraperitoneal hemorrhage. Repeat WBC in a.m., check abscess culture, switch from IV narcotics to p.o. analgesics (2) Ruptured ovarian cyst: Status: Acute Assessment and Plan: Hemoglobin this a.m. 6.8, the patient received 1 unit of packed RBCs On admission 8.6, dropped to 6.8 over 6 day period of time. Patient is pain-free, vital signs are stable, abdominal exam is soft nontender with no guarding Repeat H&H 6 hours post transfusion and in a.m., will watch for signs and symptoms of intra-abdominal hemorrhage (3) Trichomonas infection: Status: Acute Assessment and Plan: On Flagyl Assessment/Plan Procedure/Diagnosis: Procedures Operation Date: 01/31/22 08:30 <No data on this case meets the specified criteria> Time Spent With Patient Time: Total time spent is greater than 50% in coordination of care (as documented) at patient's floor/unit and/or counseling patient: Quality Measures - GREEN BUILDING MATERIALS DESIGNER H&P VTE Prior VTE?: No VTE Risk Level:: Medical - low VTE Device Contraindication: Treatment Not Indicated VTE Drug Contraindication: Treatment Not Indicated
--- NOTE | 2022-02-01 10:30 | HO.POSTANES ---
Post Anesthesia Evaluation Post Anesthesia Evaluation Vital Signs: Vital Signs Temp Pulse Resp BP Pulse Ox O2 Del Method 02/01/22 07:55 97.1 F 59 18 120/65 99 Room Air 02/01/22 02:55 97.9 F 62 16 139/78 96 Room Air 02/01/22 00:00 97.8 F 78 18 117/55 L 99 Room Air Anesthesia: Monitored Mental Status: Awake Pain Control: Satisfactory Hydration: Adequate Anesthesia-Related Issues: No Anes. Related Issues
[2022-02-01] MEDS: Doxycycline Hyclate 100 MG in 0.9 % Sodium Chloride 250 ML 166.67 MG IV ×2 (11:30→22:59)
--- NOTE | 2022-02-01 12:11 | P.PNIM_ITS ---
Subjective Subjective Date of Service: 02/01/22 Interval History: Markedly improved post drainage remains afebrile Review of Systems Denies chest pain Denies shortness of breath Denies nausea vomiting diarrhea Denies fever chills Physical Exam Vital Signs: Vital Signs: Last Vital Signs Temp 97.0 F 02/01/22 11:28 Pulse 66 02/01/22 11:28 Resp 18 02/01/22 11:28 BP 120/68 02/01/22 11:28 Pulse Ox 98 02/01/22 11:28 O2 Del Method 02/01/22 11:28 O2 Flow Rate 2 01/31/22 10:11 BMI result Body Mass Index 26.6 Const: Other: Uncomfortable appearing in bed Resp: Other: Clear to auscultation bilaterally no rales rhonchi wheezes Cardio: Other: No S4; positive S1-S2; no S3 murmurs rubs or gallops GI: Other: Soft right lower quadrant mildly tender secondary to CT-guided drain. KAREN draining pus Extrem: Other: No edema Objective Data Active Medications Acetaminophen (Acetaminophen 325 Mg Tablet) 650 mg PO Q6H PRN PRN Reason: Pain, Mild (Pain Scale 1-3) Last Admin: 01/31/22 00:56 Dose: 650 mg Documented By: THEODORE Docusate Sodium (Docusate Sodium 100 Mg Capsule) 100 mg PO BID PRN PRN Reason: Constipation Last Admin: 01/30/22 10:24 Dose: 100 mg Documented By: AMELIA Fentanyl (Fentanyl Citrate/Pf 100 Mcg/2 Ml Vial) 50 mcg IVPUSH Q5M PRN; Protocol PRN Reason: Pain, Severe (Pain Scale 7-10) Doxycycline Hyclate 100 mg/ (Sodium Chloride) 250 mls @ 166.67 mls/hr IV Q12H [facility] Last Admin: 02/01/22 11:30 Dose: 166.67 mls/hr Documented By: ANDRES Metronidazole (Flagyl) 500 mg in 100 mls @ 100 mls/hr IV Q12H [facility] Last Infusion: 02/01/22 01:14 Dose: 0 mls/hr Documented By: MANGO Piperacillin Sod/Tazobactam (Sod 3.375 gm/ Sodium Chloride) 50 mls @ 100 mls/hr IV Q6H [facility] Last Infusion: 02/01/22 10:34 Dose: 0 mls/hr Documented By: ANDRES Promethazine HCl 12.5 mg/ (Sodium Chloride) 50.5 mls @ 202 mls/hr IV ONCE PRN PRN Reason: Nausea and Vomiting Magnesium Hydroxide (Milk Of Magnesia 30 Ml Oral.Susp) 30 ml PO DAILY PRN PRN Reason: Constipation Last Admin: 01/30/22 10:24 Dose: 30 ml Documented By: AMELIA Melatonin (Melatonin 3 Mg Tablet) 6 mg PO BEDTIME PRN PRN Reason: Insomnia Morphine Sulfate (Morphine Sulfate 2 Mg/Ml Cartridge) 4 mg IVPUSH Q4H PRN; Protocol PRN Reason: Pain, Severe (Pain Scale 7-10) Last Admin: 02/01/22 02:58 Dose: 4 mg Documented By: MANGO Ondansetron HCl (Ondansetron Hcl 4 Mg/2 Ml Vial) 4 mg IVPUSH Q8H PRN PRN Reason: Nausea and Vomiting Last Admin: 01/27/22 04:06 Dose: 4 mg Documented By: OCTAVIO Ondansetron HCl (Ondansetron Hcl 4 Mg/2 Ml Vial) 4 mg IVPUSH ONCE PRN PRN Reason: Nausea and Vomiting Oxycodone HCl (Oxycodone Hcl Immed Release 5 Mg Tablet) 5 mg PO ONCE PRN PRN Reason: Pain, Severe (Pain Scale 7-10) Sodium Chloride (0.9 % Sodium Chloride Flush 3 Ml Syringe) 3 ml IVFLUSH [facility] Last Admin: 02/01/22 10:34 Dose: Not Given Documented By: ANDRES Non-Admin Reason: IV Running Labs CBC & Chem 7: 02/01/22 05:16 02/01/22 05:16 Labs: Laboratory Results - last 24 hr 01/30/22 02/01/22 02/01/22 17:48 05:16 05:16 MCV 72.3 L MCH 20.2 L MCHC 28.0 L RDW 18.6 H Plt Count 446 H MPV 9.4 Immature Gran % (Auto) Cancelled Neut % (Auto) Cancelled Lymph % (Auto) Cancelled Cassia % (Auto) Cancelled Eos % (Auto) Cancelled Baso % (Auto) Cancelled Lymph # (Auto) Cancelled Cassia # (Auto) Cancelled Eos # (Auto) Cancelled Baso # (Auto) Cancelled Abs Immat Gran (auto) Cancelled Absolute Neuts (auto) Cancelled Absolute Nucleated RBC 0.040 H Nucleated RBC % (auto) 0.1 Neutrophils % (Manual) 95 H Band Neutrophils % 3 Metamyelocytes % 1 Myelocytes % 1 Abs Neuts (Manual) 26.9 H Metamyelocytes # 0.3 Myelocytes # 0.3 Smudge Cells PRESENT Platelet Estimate SLIGHTLY INCREASED Plt Morphology Comment NORMAL RBC Morphology NOTED Polychromasia 1+ (0-2) Macrocytosis 1+ (5-14) Target Cells 1+ (5-14) Ovalocytes 1+ (5-14) Schistocytes 1+ (0-2) Anion Gap 14 Estim Creat Clear Calc 137.2 Estimated GFR > 60 Fasting Glucose 167 H Calcium 8.7 Total Bilirubin < 0.2 AST 16 ALT 17 Alkaline Phosphatase 129 H Total Protein 6.0 L Albumin 2.9 L Blood Type A Positive Antibody Screen NEGATIVE Crossmatch See Detail Microbiology Microbiology Results: Microbiology 01/27/22 09:37 Blood Culture - Final Blood - Venous No growth after 5 days. 01/27/22 09:37 Blood Culture - Final Blood - Venous No growth after 5 days. 01/31/22 09:30 Gram Stain - Final Abscess Intra-abdominal Routine Culture - Preliminary No growth to date. Anaerobic Culture - Preliminary No growth to date. 01/29/22 19:03 Blood Culture - Preliminary Blood - Venous No growth after 48 hours. 01/29/22 19:03 Blood Culture - Preliminary Blood - Venous No growth after 48 hours. Assessment and Plan (1) Tubal ovarian abscess: Status: Acute (2) Iron deficiency anemia: Status: Acute Plan 36-year-old female, not on prescription medications with pertinent history of cocaine use disorder, who presents to the emergency department for evaluation of abdominal pain; workup consisted with ruptured right hemorrhagic cyst verses PID. Fever spikes to 102 overnight 1. BINU -markedly improved status post drainage -Zosyn(2)/IV doxycycline 100 mg b.i.d/IV Flagyl 500 mg b.i.d. day (5) -continue same as long as drainage from tube. -removed when drainage complete ?? 2.Cocaine use disorder - seen by Addiction Team;continue to follow 3. Iron deficiency? anemia -1 unit packed red cells given today -follow-up CBC this p.m. DVT prophylaxis:? recommend early ambulation Full code Patient will require ongoing hospitalization for IV antibiotics to treat PID Quality Stroke Does the patient have a stroke diagnosis?: No VTE Prior VTE?: No VTE Risk Level:: Medical - low VTE Device Contraindication: Treatment Not Indicated VTE Drug Contraindication: Treatment Not Indicated
--- NOTE | 2022-02-01 15:31 | MHC.CM.PN ---
PER MD ROUNDS, PT NOT MEDICALLY CLEARED FOR DC (IV ABT FOR PID, KAREN DRAINING PUS) CM WILL CONTINUE TO FOLLOW FOR DC NEEDS.
--- NOTE | 2022-02-01 16:24 | HO.MIDLINE ---
Midline Insertion MIDLINE INSERTION Diagnosis: Tubal ovarian cyst rupture PID Indication: Antibiotic and Blood infusions Pertinent Labs: reviewed Technique: Using sterile technique including cap and mask, glove and drape, the Right arm was prepped and draped in the usual sterile fashion of full barrier technique with CHG. Using ultrasound guidance, right basilic vein access was obtained in an single attempt by this RN. a 20 guage 10cm Non-PASV midline was positioned. The procedure was performed in S272. Ultrasound was used to document vein patency and for needle entry. A formal ultrasound picture was recorded. Vascular Supervisor Finish End has released the line for use and it is currently dressed with a StatLock, Tegaderm, and CHG disc. Verification has been performed for blood return and line patency. Equipment: 20 guage 10cm Non-PASV Catheter Type: [employer] [address] ST Midline Catheter Lot #: [id number]
[2022-02-01] MEDS: 0.9 % Sodium Chloride Flush 3 ML SYRINGE IVFLUSH (16:59)
--- NOTE | 2022-02-01 23:13 | P.PNID_ITS ---
Subjective Subjective Date of Service: 02/01/22 Critical Care Time (minutes): 15 Comment: she is sleeping she seems comfortable Objective Data Labs CBC & Chem 7: 02/01/22 05:16 02/01/22 05:16 Labs: Laboratory Results - last 24 hr 01/30/22 02/01/22 02/01/22 17:48 05:16 05:16 WBC 27.4 H RBC 3.36 L Hgb 6.8 L* Hct 24.3 L MCV 72.3 L MCH 20.2 L MCHC 28.0 L RDW 18.6 H Plt Count 446 H MPV 9.4 Immature Gran % (Auto) Cancelled Neut % (Auto) Cancelled Lymph % (Auto) Cancelled [place] % (Auto) Cancelled Eos % (Auto) Cancelled Baso % (Auto) Cancelled Lymph # (Auto) Cancelled [place] # (Auto) Cancelled Eos # (Auto) Cancelled Baso # (Auto) Cancelled Abs Immat Gran (auto) Cancelled Absolute Neuts (auto) Cancelled Absolute Nucleated RBC 0.040 H Nucleated RBC % (auto) 0.1 Neutrophils % (Manual) 95 H Band Neutrophils % 3 Metamyelocytes % 1 Myelocytes % 1 Abs Neuts (Manual) 26.9 H Metamyelocytes # 0.3 Myelocytes # 0.3 Smudge Cells PRESENT Platelet Estimate SLIGHTLY INCREASED Plt Morphology Comment NORMAL RBC Morphology NOTED Polychromasia 1+ (0-2) Macrocytosis 1+ (5-14) Target Cells 1+ (5-14) Ovalocytes 1+ (5-14) Schistocytes 1+ (0-2) Sodium 141 Potassium 3.7 Chloride 102 Carbon Dioxide 29 Anion Gap 14 BUN 8 L Creatinine 0.66 Estim Creat Clear Calc 137.2 Estimated GFR > 60 Fasting Glucose 167 H Calcium 8.7 Total Bilirubin < 0.2 AST 16 ALT 17 Alkaline Phosphatase 129 H Total Protein 6.0 L Albumin 2.9 L Blood Type A Positive Antibody Screen NEGATIVE Crossmatch See Detail Microbiology Microbiology Results: Microbiology 01/27/22 09:37 Blood - Venous Blood Culture - Final No growth after 5 days. 01/27/22 09:37 Blood - Venous Blood Culture - Final No growth after 5 days. 01/31/22 09:30 Abscess Intra-abdominal Gram Stain - Final 01/31/22 09:30 Abscess Intra-abdominal Routine Culture - Preliminary No growth to date. 01/31/22 09:30 Abscess Intra-abdominal Anaerobic Culture - Preliminary No growth to date. 01/29/22 19:03 Blood - Venous Blood Culture - Preliminary No growth after 48 hours. 01/29/22 19:03 Blood - Venous Blood Culture - Preliminary No growth after 48 hours. 01/25/22 00:00 Urine clean catch - Urine paul top Urine Culture - Final Physical Exam Vital Signs: Vital Signs: Last Vital Signs Temp 97.2 F 02/01/22 20:24 Pulse 60 02/01/22 20:24 Resp 16 02/01/22 20:24 BP 113/63 02/01/22 20:24 Pulse Ox 98 02/01/22 18:53 O2 Del Method 02/01/22 18:53 O2 Flow Rate 2 01/31/22 10:11 BMI result Body Mass Index 26.6 Const: General: cooperative Resp: Effort & Inspection: normal respiratory effort Cardio: Rate: regular rate Rhythm: regular rhythm GI: Inspection: Yes normal to inspection Extrem: General: Yes normal to inspection Assessment and Plan Assessment and plan (1) Pelvic abscess: Problem details: She has drains in place and feels better now on Zosyn d2 ,Doxycycline and flagyl IUD is out Status: Acute (2) Tubal ovarian abscess: Status: Acute Assessment and Plan: Would continue antibiotics and on discharge Augmentin Doxycycline and flagyl 10 d total (3) Encounter for IUD removal: Status: Acute (4) Trichomonas infection: Status: Acute (5) PID (acute pelvic inflammatory disease): Status: Acute Time Spent With Patient Time: Total time spent is greater than 50% in coordination of care (as documented) at patient's floor/unit and/or counseling patient:
[2022-02-02] VITALS (7 sets, daily range): BP systolic 101–133; BP diastolic 59–81; PULSE 67–83; RESP 18–20; TEMP 36.5–38; O2SAT 89–100
[2022-02-02] MEDS: metroNIDAZOLE/NS 500 MG/100 ML PIGGYBACK 100 MG IV ×2 (01:05→11:50)
[2022-02-02] MEDS: Piperacillin Sodium/Tazobactam 3.375 GM in 0.9 % Sodium Chloride 50 ML IV ×4 (02:20→20:15)
[2022-02-02] MEDS: oxyCODONE HCl Immed Release 5 MG TABLET PO (02:21)
[2022-02-02] MEDS: Heparin Sodium,Porcine Flush 50 UNITS, 0.9 % Sodium Chloride Flush 5 ML IVFLUSH ×3 (03:03→23:08)
[2022-02-02 06:24] LABS: Hematocrit 30.6 % (37.0-47.0); Hemoglobin 8.4 g/dl (12.0-16.0); Mean Corpuscular HGB Conc 27.5 g/dl (31.0-35.0); Mean Corpuscular Hemoglobin 21.3 pg (27.0-33.0); Mean Corpuscular Volume 77.7 fL (80.0-98.0); Mean Platelet Volume 10.3 fL (9.4-12.3); NRBC Pct Auto 0.6 /100WBC (0.0-0.2); Platelet Count 407 X10*3/uL (160-400); Red Blood Count 3.94 X10*6/uL (4.20-5.50); Red Cell Distribution Width 20.7 % (11.0-16.0)
[2022-02-02 06:28] LABS: WBC ABN SCTR FOR CBC 1; White Blood Count 23.2 X10*3/uL (4.8-10.8)
[2022-02-02 06:30] LABS: Alanine Aminotransferase 15 U/L (0-31); Albumin Level 2.7 g/dL (3.5-5.0); Alkaline Phosphatase 113 U/L (39-117); Anion Gap 14 (12-20); Aspartate Amino Transferase 15 U/L (5-31); Bilirubin Total 0.3 mg/dL (0.0-1.0); Blood Urea Nitrogen 10 mg/dL (9-16); Calcium 8.4 mg/dL (8.4-10.2); Carbon Dioxide 27 mmol/L (22-29); Chloride 104 mmol/L (96-108); Creatinine Clr Calc Pharmacy 153.5; Estimated Glomerular Filt Rate > 60; Glucose Fasting 95 mg/dL (60-99); Potassium 3.7 mmol/L (3.3-5.1); Sodium 141 mmol/L (135-145); Total Protein 5.8 g/dL (6.5-8.0)
[2022-02-02 07:42] LABS: Band Neutrophils Percent 15 % (3-5); Eosinophils Absolute Manual 0.2 X10*3/uL (0.0-0.4); Eosinophils Percent Manual 1 % (0-4); Lymphocytes Absolute Manual 3.2 X10*3/uL (1.2-4.9); Lymphocytes Percent Manual 14 % (20-40); Metamyelocytes Absolute 1.6 X10*3/uL; Metamyelocytes Percent 7 %; Monocytes Absolute Manual 0.2 X10*3/uL (0.1-1.2); Monocytes Percent Manual 1 % (2-11); Myelocytes Absolute 0.5 X10*/uL; Myelocytes Percent 2 %; Neutrophils Absolute Manual 17.4 X10*3/uL (2.0-8.3); Neutrophils Percent Manual 60 % (45-73)
[2022-02-02 07:46] LABS: Microcytosis 1+ (5-14) /OIF; RBC Morphology NOTED
[2022-02-02 07:47] LABS: Acanthocytes 1+ (0-2) /OIF; Burr Cells 3+ (>5) /OIF; Hypochromasia 2+ (15-30) /OIF; Ovalocytes 1+ (5-14) /OIF; Platelet Estimate SLIGHTLY INCREASED (NORMAL); Platelet Morphology Comment NORMAL; Polychromasia 1+ (0-2) /OIF
[2022-02-02] MEDS: Acetaminophen 325 MG TABLET 650 MG PO (08:39)
[2022-02-02] MEDS: 0.9 % Sodium Chloride Flush 3 ML SYRINGE IVFLUSH ×2 (08:48→15:22)
[2022-02-02] MEDS: Doxycycline Hyclate 100 MG in 0.9 % Sodium Chloride 250 ML 166.67 MG IV ×2 (09:56→23:07)
--- NOTE | 2022-02-02 11:52 | HO.PM.IMPN ---
Subjective Subjective Date of Service: 02/02/22 Interval History: Continues to improve Review of Systems Denies chest pain Denies shortness of breath Denies nausea vomiting diarrhea States abdominal pain is improved Physical Exam Vital Signs: Vital Signs: Last Vital Signs Temp 98.1 F 02/02/22 11:38 Pulse 67 02/02/22 11:38 Resp 18 02/02/22 11:38 BP 101/59 L 02/02/22 11:38 Pulse Ox 98 02/02/22 11:38 O2 Del Method 02/02/22 11:38 O2 Flow Rate 2 01/31/22 10:11 BMI result Body Mass Index 26.6 Const: Other: Uncomfortable appearing in bed Resp: Other: Clear to auscultation bilaterally no rales rhonchi wheezes Cardio: Other: No S4; positive S1-S2; no S3 murmurs rubs or gallops GI: Other: Soft right lower quadrant mildly tender secondary to CT-guided drain. KAREN draining pus Extrem: Other: No edema Objective Data Active Medications Acetaminophen (Acetaminophen 325 Mg Tablet) 650 mg PO Q6H PRN PRN Reason: Pain, Mild (Pain Scale 1-3) Last Admin: 02/02/22 08:39 Dose: 650 mg Documented By: RUDY Heparin Sodium (Porcine) 50 (units/ Sodium Chloride 5 ml) [facility] Last Admin: 02/02/22 03:03 Dose: 50 unit Documented By: MANGO Docusate Sodium (Docusate Sodium 100 Mg Capsule) 100 mg PO BID PRN PRN Reason: Constipation Last Admin: 01/30/22 10:24 Dose: 100 mg Documented By: AMELIA Fentanyl (Fentanyl Citrate/Pf 100 Mcg/2 Ml Vial) 50 mcg IVPUSH Q5M PRN; Protocol PRN Reason: Pain, Severe (Pain Scale 7-10) Hydromorphone HCl (Hydromorphone Hcl 0.5 Mg/0.5 Ml Syringe) 0.5 mg IVPUSH Q4H PRN; Protocol PRN Reason: Pain, Severe (Pain Scale 7-10) Doxycycline Hyclate 100 mg/ (Sodium Chloride) 250 mls @ 166.67 mls/hr IV Q12H [facility] Last Infusion: 02/02/22 11:50 Dose: 0 mls/hr Documented By: RUDY Metronidazole (Flagyl) 500 mg in 100 mls @ 100 mls/hr IV Q12H [facility] Last Admin: 02/02/22 11:50 Dose: 100 mls/hr Documented By: RUDY Piperacillin Sod/Tazobactam (Sod 3.375 gm/ Sodium Chloride) 50 mls @ 100 mls/hr IV Q6H [facility] Last Infusion: 02/02/22 09:56 Dose: 0 mls/hr Documented By: RUDY Promethazine HCl 12.5 mg/ (Sodium Chloride) 50.5 mls @ 202 mls/hr IV ONCE PRN PRN Reason: Nausea and Vomiting Magnesium Hydroxide (Milk Of Magnesia 30 Ml Oral.Susp) 30 ml PO DAILY PRN PRN Reason: Constipation Last Admin: 01/30/22 10:24 Dose: 30 ml Documented By: AMELIA Melatonin (Melatonin 3 Mg Tablet) 6 mg PO BEDTIME PRN PRN Reason: Insomnia Ondansetron HCl (Ondansetron Hcl 4 Mg/2 Ml Vial) 4 mg IVPUSH Q8H PRN PRN Reason: Nausea and Vomiting Last Admin: 01/27/22 04:06 Dose: 4 mg Documented By: OCTAVIO Ondansetron HCl (Ondansetron Hcl 4 Mg/2 Ml Vial) 4 mg IVPUSH ONCE PRN PRN Reason: Nausea and Vomiting Oxycodone HCl (Oxycodone Hcl Immed Release 5 Mg Tablet) 10 mg PO Q4H PRN PRN Reason: Pain, Moderate (Pain Scale 4-6 Sodium Chloride (0.9 % Sodium Chloride Flush 3 Ml Syringe) 3 ml IVFLUSH QSHIFT [facility] Last Admin: 02/02/22 08:48 Dose: 3 ml Documented By: RUDY Labs CBC & Chem 7: 02/02/22 05:54 02/02/22 05:54 Labs: Laboratory Results - last 24 hr 01/30/22 02/02/22 02/02/22 17:48 05:54 05:54 MCV 77.7 L D MCH 21.3 L MCHC 27.5 L RDW 20.7 H Plt Count 407 H MPV 10.3 Immature Gran % (Auto) Cancelled Neut % (Auto) Cancelled Lymph % (Auto) Cancelled Winston % (Auto) Cancelled Eos % (Auto) Cancelled Baso % (Auto) Cancelled Lymph # (Auto) Cancelled Winston # (Auto) Cancelled Eos # (Auto) Cancelled Baso # (Auto) Cancelled Abs Immat Gran (auto) Cancelled Absolute Neuts (auto) Cancelled Absolute Nucleated RBC 0.130 H Nucleated RBC % (auto) 0.6 H Neutrophils % (Manual) 60 Band Neutrophils % 15 H Lymphocytes % (Manual) 14 L Monocytes % (Manual) 1 L Eosinophils % (Manual) 1 Metamyelocytes % 7 Myelocytes % 2 Abs Neuts (Manual) 17.4 H Lymphocytes # (Manual) 3.2 Monocytes # (Manual) 0.2 Eosinophils # (Manual) 0.2 Metamyelocytes # 1.6 Myelocytes # 0.5 Platelet Estimate SLIGHTLY INCREASED Plt Morphology Comment NORMAL RBC Morphology NOTED Polychromasia 1+ (0-2) Hypochromasia 2+ (15-30) Microcytosis 1+ (5-14) Ovalocytes 1+ (5-14) Barnes Cells 3+ (>5) Acanthocytes (Spur) 1+ (0-2) Anion Gap 14 Estim Creat Clear Calc 153.5 Estimated GFR > 60 Fasting Glucose 95 Calcium 8.4 Total Bilirubin 0.3 AST 15 ALT 15 Alkaline Phosphatase 113 Total Protein 5.8 L Albumin 2.7 L Blood Type A Positive Antibody Screen NEGATIVE Crossmatch See Detail Microbiology Microbiology Results: Microbiology 01/31/22 09:30 Gram Stain - Final Abscess Intra-abdominal Routine Culture - Preliminary No growth after 2 days Anaerobic Culture - Preliminary Culture in progress. 01/27/22 09:37 Blood Culture - Final Blood - Venous No growth after 5 days. 01/27/22 09:37 Blood Culture - Final Blood - Venous No growth after 5 days. Assessment and Plan (1) Tubal ovarian abscess: Status: Acute (2) Cocaine abuse: Status: Acute (3) Iron deficiency anemia: Status: Acute Plan 36-year-old female, not on prescription medications with pertinent history of cocaine use disorder, who presents to the emergency department for evaluation of abdominal pain; workup consisted with ruptured right hemorrhagic cyst verses PID. Fever spikes to 102 overnight 1. BINU -markedly improved status post drainage -Zosyn(3)/IV doxycycline 100 mg b.i.d/IV Flagyl 500 mg b.i.d. day (6) -continue same as long as drainage from tube. -removed when drainage complete ?? 2.Cocaine use disorder - seen by Addiction Team;continue to follow 3. Iron deficiency? anemia -1 unit packed red cells given today -follow-up CBC this p.m. DVT prophylaxis:? recommend early ambulation Full code Patient will require ongoing hospitalization for IV antibiotics to treat PID Quality Stroke Does the patient have a stroke diagnosis?: No VTE Prior VTE?: No VTE Risk Level:: Medical - low VTE Device Contraindication: Treatment Not Indicated VTE Drug Contraindication: Treatment Not Indicated
[2022-02-02] MEDS: HYDROmorphone HCl 0.5 MG/0.5 ML SYRINGE IVPUSH ×2 (13:26→20:27)
[2022-02-02] MEDS: ondansetron HCL 4 MG/2 ML VIAL IVPUSH (23:44)
[2022-02-03] MEDS: metroNIDAZOLE/NS 500 MG/100 ML PIGGYBACK 10 MG IV (00:44)
[2022-02-03] MEDS: HYDROmorphone HCl 0.5 MG/0.5 ML SYRINGE IVPUSH ×4 (00:59→15:00)
[2022-02-03] MEDS: Piperacillin Sodium/Tazobactam 3.375 GM in 0.9 % Sodium Chloride 50 ML IV ×3 (03:33→14:49)
[2022-02-03 03:48] VITALS: BP 119/66; PULSE 77; RESP 20; TEMP 37.4; O2SAT 95
[2022-02-03] MEDS: Heparin Sodium,Porcine Flush 50 UNITS, 0.9 % Sodium Chloride Flush 5 ML IVFLUSH ×2 (05:05→15:30)
[2022-02-03 06:36] LABS: Alanine Aminotransferase 11 U/L (0-31); Albumin Level 2.7 g/dL (3.5-5.0); Alkaline Phosphatase 103 U/L (39-117); Anion Gap 12 (12-20); Aspartate Amino Transferase 13 U/L (5-31); Bilirubin Total 0.3 mg/dL (0.0-1.0); Blood Urea Nitrogen 5 mg/dL (9-16); Calcium 8.1 mg/dL (8.4-10.2); Carbon Dioxide 31 mmol/L (22-29); Chloride 97 mmol/L (96-108); Creatinine Clr Calc Pharmacy 153.5; Estimated Glomerular Filt Rate > 60; Glucose Fasting 80 mg/dL (60-99); Potassium 3.7 mmol/L (3.3-5.1); Sodium 136 mmol/L (135-145); Total Protein 5.8 g/dL (6.5-8.0)
[2022-02-03 08:00] VITALS: BP 120/69; PULSE 69; RESP 18; TEMP 36.4; O2SAT 95
[2022-02-03] MEDS: 0.9 % Sodium Chloride Flush 3 ML SYRINGE IVFLUSH ×2 (08:33→15:31)
[2022-02-03] MEDS: Doxycycline Hyclate 100 MG in 0.9 % Sodium Chloride 250 ML 166.67 MG IV (09:26)
[2022-02-03 09:54] VITALS: TEMP 36.9
[2022-02-03 10:43] LABS: Hematocrit 28.8 % (37.0-47.0); Hemoglobin 8.2 g/dl (12.0-16.0); Mean Corpuscular HGB Conc 28.5 g/dl (31.0-35.0); Mean Corpuscular Hemoglobin 20.9 pg (27.0-33.0); Mean Corpuscular Volume 73.5 fL (80.0-98.0); Mean Platelet Volume 9.2 fL (9.4-12.3); NRBC Pct Auto 0.3 /100WBC (0.0-0.2); Platelet Count 472 X10*3/uL (160-400); Red Blood Count 3.92 X10*6/uL (4.20-5.50); Red Cell Distribution Width 21.2 % (11.0-16.0); White Blood Count 24.7 X10*3/uL (4.8-10.8)
--- NOTE | 2022-02-03 10:58 | PM.GYNPNOP ---
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 Physical Exam Vitals Vital signs: Temp Pulse Resp BP Pulse Ox O2 Del Method O2 Flow Rate 98.5 F 69 18 120/69 95 2 02/03/22 09:54 02/03/22 08:00 02/03/22 08:00 02/03/22 08:00 02/03/22 08:00 02/03/22 08:00 01/31/22 10:11 BMI result Body Mass Index 26.6 Abdomen Auscultation/Inspection/Palpation: Soft and Tenderness (amanda lower tenderness, no guarding or rebound) 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 - Prog Note: Results Labs CBC & Chem 7: 02/03/22 10:33 02/03/22 05:41 Labs: Laboratory Results - last 24 hr 02/03/22 02/03/22 05:41 10:33 WBC 24.7 H RBC 3.92 L Hgb 8.2 L Hct 28.8 L MCV 73.5 L MCH 20.9 L MCHC 28.5 L RDW 21.2 H Plt Count 472 H MPV 9.2 L Immature Gran % (Auto) Cancelled Neut % (Auto) Cancelled Lymph % (Auto) Cancelled Josephine % (Auto) Cancelled Eos % (Auto) Cancelled Baso % (Auto) Cancelled Lymph # (Auto) Cancelled Josephine # (Auto) Cancelled Eos # (Auto) Cancelled Baso # (Auto) Cancelled Abs Immat Gran (auto) Cancelled Absolute Neuts (auto) Cancelled Absolute Nucleated RBC 0.080 H Nucleated RBC % (auto) 0.3 H Sodium 136 Potassium 3.7 Chloride 97 Carbon Dioxide 31 H Anion Gap 12 BUN 5 L Creatinine 0.59 Estim Creat Clear Calc 153.5 Estimated GFR > 60 Fasting Glucose 80 Calcium 8.1 L Total Bilirubin 0.3 AST 13 ALT 11 Alkaline Phosphatase 103 Total Protein 5.8 L Albumin 2.7 L 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 - A/P (1) Cocaine abuse: Status: Acute Assessment and Plan: seen by recovery support team (2) Iron deficiency anemia: Status: Acute Assessment and Plan: s/p 1 unit 2 days ago stable h/h s/p Fe transfusion (3) Pelvic abscess: Status: Acute Assessment and Plan: s/p IR pelvic abcess drainage, on IV atb x7 days, no improvement. The pt's pain recurred since yesterday, KAREN drain slowed down, T max 100.4 yesterday , wbc increased. Recommended to the pt to transfer her to a tertiary care center with more resources, [facility], for further management. The pt agreed. dw case with Dr Velásquez, OBGYN attending at [facility] who accepted the pt. 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
[2022-02-03 11:07] LABS: Band Neutrophils Percent 3 % (3-5); Eosinophils Absolute Manual 0.2 X10*3/uL (0.0-0.4); Eosinophils Percent Manual 1 % (0-4); Lymphocytes Percent Manual 12 % (20-40); Metamyelocytes Absolute 0.7 X10*3/uL; Metamyelocytes Percent 3 %; Monocytes Absolute Manual 0.5 X10*3/uL (0.1-1.2); Monocytes Percent Manual 2 % (2-11); Myelocytes Absolute 0.2 X10*/uL; Myelocytes Percent 1 %; Neutrophils Percent Manual 78 % (45-73)
[2022-02-03 11:08] LABS: Hypochromasia 1+ (5-14) /OIF; Microcytosis 1+ (5-14) /OIF; Ovalocytes 1+ (5-14) /OIF; Polychromasia 1+ (0-2) /OIF; RBC Morphology NOTED
[2022-02-03 11:09] LABS: Platelet Estimate SLIGHTLY INCREASED (NORMAL); Platelet Morphology Comment NORMAL
[2022-02-03] MEDS: metroNIDAZOLE/NS 500 MG/100 ML PIGGYBACK 100 MG IV (11:14)
[2022-02-03 11:56] VITALS: BP 142/67; PULSE 70; RESP 18; TEMP 36.9; O2SAT 98
--- NOTE | 2022-02-03 11:57 | PM.DS ---
DS: Providers Provider Date of Service: 02/03/22 Date of admission: 01/26/22 01:42 Date of discharge: 02/03/22 Primary care physician: Vicente Jaeger MD Consults: 01/26/22 01:17 Consult to Obstetrics / Gynecology Stat Consulting Provider: Guy Sheikh Reason for consultation: hemorrhagic cyst 01/26/22 01:42 Addiction Medicine Routine Consulting Provider: Addiction Covering Reason for consultation: cocaine use Consult to Care Team Routine Comment: Reason for consultation: cocaine use 01/30/22 08:17 Consult to Infectious Diseases Stat Consulting Provider: Gayla Frances Reason for consultation: fever Has provider been notified: Yes DS: Diagnosis Discharge Diagnosis (1) Pelvic abscess: Status: Acute (2) Trichomonas infection: Status: Acute (3) Iron deficiency anemia: Status: Acute (4) Cocaine abuse: Status: Acute DS: Summary Hospital Course Hospital Course: 36-year-old female, not on prescription medications with pertinent history of cocaine use disorder, who presents to the emergency department for evaluation of abdominal pain.? Patient states she has had left-sided abdominal pain for the last 5 days, progressive, constant and nonradiating.? She had acute worsening of the pain today with associated nausea and nonbloody emesis.? Patient denies similar pain in the past.? Patient initially denied use of drugs but later agreed to using cocaine at a libertarian about 4 days ago.? Also took Percocet prior to coming here for pain.? Patient denies fever, chest discomfort, shortness of breath, palpitations, changes in urinary or bowel habits In the ER, imaging was concerning for ruptured hemorrhagic cyst. Watcher [employer] was consulted who evaluated the patient and recommended admission to hospitalist team for pain control. Admitted to general medical floor with material handler loader consult in. Id consult was also placed. Initially the consensus was this is PID and patient was placed on doxycycline/metronidazole/ceftriaxone to cover GC as well. Ultimately cultures grew out Trichomonas. Patient continued to spike fevers and have worsening pain. Id switch coverage to Zosyn but continue doxycycline and metronidazole. Initial CT scan demonstrated bilateral complex cystic adnexal lesions probable loculated complex fluid in the pelvis and posterior cul-de-sac right greater than left with diffuse fat stranding. On 01/31/2022, CT-guided aspiration demonstrated 110 mL of clear pus which was sent for culture. A 10.5 [place] APD catheter was continued to KAREN drainage. Subsequent drainage was approximately 200 cc. Initially patient had marked pain improvement and was able to move more freely. Over the course the next 48 hours she began to seize have worsening temps along with significantly worsening discomfort along with a rising white count. This was discussed with Dr. Sheikh ; decision was made to transfer to tertiary care facility. Dr. Sheikh has made arrangements with [facility] material handler loader and the patient will be transferred there to continue her care Time Spent with Patient Time attestation: Total time spent providing and/or coordinating discharge services: Discharge coordination time: Greater than 30 minutes Quality: Safe Use of Opioids Does Pt have an Active Cancer Diagnosis on the Problem List?: No Quality: Stroke Does the patient have a stroke diagnosis?: No Physical Exam Vital Signs: Vital Signs: Last Vital Signs Temp 98.5 F 02/03/22 11:56 Pulse 70 02/03/22 11:56 Resp 18 02/03/22 11:56 BP 142/67 H 02/03/22 11:56 Pulse Ox 98 02/03/22 11:56 O2 Del Method 02/03/22 11:56 O2 Flow Rate 2 01/31/22 10:11 BMI result Body Mass Index 26.6 Const: Other: Uncomfortable appearing in bed Resp: Other: Clear to auscultation bilaterally no rales rhonchi wheezes Cardio: Other: No S4; positive S1-S2; no S3 murmurs rubs or gallops GI: Other: Soft right lower quadrant mildly tender secondary to CT-guided drain. KAREN draining pus Extrem: Other: No edema DS: Data Data Completed and Pending Labs on day of discharge: Laboratory Results - last 24 hr 02/03/22 02/03/22 05:41 10:33 WBC 24.7 H RBC 3.92 L Hgb 8.2 L Hct 28.8 L MCV 73.5 L MCH 20.9 L MCHC 28.5 L RDW 21.2 H Plt Count 472 H MPV 9.2 L Immature Gran % (Auto) Cancelled Neut % (Auto) Cancelled Lymph % (Auto) Cancelled [place] % (Auto) Cancelled Eos % (Auto) Cancelled Baso % (Auto) Cancelled Lymph # (Auto) Cancelled [place] # (Auto) Cancelled Eos # (Auto) Cancelled Baso # (Auto) Cancelled Abs Immat Gran (auto) Cancelled Absolute Neuts (auto) Cancelled Absolute Nucleated RBC 0.080 H Nucleated RBC % (auto) 0.3 H Neutrophils % (Manual) 78 H Band Neutrophils % 3 Lymphocytes % (Manual) 12 L Monocytes % (Manual) 2 Eosinophils % (Manual) 1 Metamyelocytes % 3 Myelocytes % 1 Abs Neuts (Manual) 20.0 H Lymphocytes # (Manual) 3.0 Monocytes # (Manual) 0.5 Eosinophils # (Manual) 0.2 Metamyelocytes # 0.7 Myelocytes # 0.2 Platelet Estimate SLIGHTLY INCREASED Plt Morphology Comment NORMAL RBC Morphology NOTED Polychromasia 1+ (0-2) Hypochromasia 1+ (5-14) Microcytosis 1+ (5-14) Ovalocytes 1+ (5-14) Sodium 136 Potassium 3.7 Chloride 97 Carbon Dioxide 31 H Anion Gap 12 BUN 5 L Creatinine 0.59 Estim Creat Clear Calc 153.5 Estimated GFR > 60 Fasting Glucose 80 Calcium 8.1 L Total Bilirubin 0.3 AST 13 ALT 11 Alkaline Phosphatase 103 Total Protein 5.8 L Albumin 2.7 L Preliminary micro results at discharge 01/31/22 09:30 Anaerobic Culture - Preliminary Abscess Intra-abdominal No growth to date. 01/29/22 19:03 Blood Culture - Preliminary Blood - Venous No growth after 48 hours. 01/29/22 19:03 Blood Culture - Preliminary Blood - Venous No growth after 48 hours. Discharge Plan Discharge Anticipated Discharge Date/Time: 02/03/22 11:47 Patient Disposition: Xfer [facility] Hospital Discharge Diagnosis: Pelvic abcess Referrals: Vicente Jaeger MD [Primary Care Provider] - 1 Week Discharge Medications: New metronidazole in NaCl (iso-os) 500 mg/100 mL Piggyback 500 mg IV Q12H Qty: 300 0RF doxycycline hyclate [Doxy-100] 100 mg Recon Soln 100 mg IV Q12H Qty: 20 0RF oxycodone 5 mg Tablet 10 mg PO Q4H PRN (Reason: Pain, Moderate (Pain Scale 4-6) Qty: 30 0RF Rx Instructions: Partial Fill upon patient request. hydromorphone 0.5 mg/0.5 mL Syringe 0.5 mg IVPUSH Q4H PRN (Reason: Pain, Severe (Pain Scale 7-10)) Qty: 10 0RF Protocol: Hold for RR < HOLD and contact provider for RR < (bpm): 12 Rx Instructions: Partial Fill upon patient request. Zosyn in dextrose (iso-osm) 3.375 gram/50 mL piggyback 3.375 g IV Q6H Qty: 1200 0RF Discharge Orders: Discharge Order (Routine); Ordered 02/03/22 Ordered By: Kirill Rizo Diet: NPO Activity on Discharge: As tolerated Stand Alone Forms: Patient Portal Discharge page Care Plan Goals: Transfer to [facility] when bed available Health Concerns: Continue all medications as ordered Plan of Treatment: Further plans based on clinical course Assessment: See discharge summary
[2022-02-03 12:34] VITALS: TEMP 37.7
[2022-02-03] MEDS: iohexoL 350 MG/ML 100 ML INFUS..BTL IV (13:40)
[2022-02-03] MEDS: Diatrizoate Meglumine, Sodium 30 ML SOLUTION PO (13:41)
[2022-02-03 15:36] VITALS: BP 111/64; PULSE 67; RESP 18; TEMP 36.4; O2SAT 97
[2022-02-03 15:53] LABS: COVID-19 Test Negative (Negative); IDNOW Serial# 16C4AD1C
== END 2022-02-03 18:30 | disposition short-term general hospital (02) | DRG 532 ==
LOC: HO.ED 01-26 01:33 → HO.EDOVER 01-26 07:17 → HO.S3 01-26 20:01 → HO.EDOVER 01-28 13:34 → HO.S3 01-28 13:34
PROVIDERS: Hospitalist; Nurse Practitioner Family; Obstetrics & Gynecology; Physician Assistant; Radiology Diagnostic Radiology; Admitting Provider Student in an Organized Health Care Education/Training Program; Emergency Provider Internal Medicine; PCP Family Medicine; Visit Provider Hospitalist
DX: N83.202 Unspecified ovarian cyst, left side (principal); K66.1 Hemoperitoneum; D72.829 Elevated white blood cell count, unspecified; D50.9 Iron deficiency anemia, unspecified; F14.10 Cocaine abuse, uncomplicated; A59.8 Trichomoniasis of other sites; R56.9 Unspecified convulsions; N70.93 Salpingitis and oophoritis, unspecified; F17.210 Nicotine dependence, cigarettes, uncomplicated; N74 Female pelvic inflammatory disorders in diseases classified elsewhere; Z20.822 Contact with and (suspected) exposure to COVID-19; Z71.6 Tobacco abuse counseling; Z79.899 Other long term (current) drug therapy
CPT/HCPCS: 36410; 36415; 74177; 75989; 76856; 80048; 80053; 80076; 80307; 81001; 83540; 83605; 83690; 83735; 84702; 85007; 85025; 85027; 85610; 86704; 86706; 86709; 86780; 86803; 86850; 86900; 86901; 86923; 87040; 87070; 87073; 87081; 87086; 87205; 87340; 87389; 87480; 87491; 87510; 87591; 87635; 87660; 93005; 99218; 99285; C1894; J0696; J1100; J1170; J1642; J1756; J1885; J2250; J2270; J2405; J2543; J3010; P9016; Q4186; Q9967

== ENCOUNTER 2022-11-27 19:20 | Emergency (ER) | payer OTHER, SELFPAY ==
[2022-11-27 20:02] VITALS: BP 135/78; PULSE 77; RESP 18; TEMP 37.3; O2SAT 99; BMI 43.1
--- NOTE | 2022-11-27 20:25 | ED.DENTAL ---
HPI - Dental/Oral General Chief complaint: Dental/Oral Stated complaint: dental pain Time Seen by Provider: 11/27/22 20:25 Source: patient Mode of arrival: ambulatory Limitations: no limitations History of Present Illness HPI Narrative: Patient is a 37-year-old female presenting to the emergency department with complaint of right lower jaw pain since yesterday. Reports to broken molars in the affected area. Reports she called her dentist and has an appointment scheduled for tomorrow, however, pain is severe in feel she will be unable to sleep. Denies any fever or chills. States dentist did not send any prescriptions for her. Denies any drainage. Took ibuprofen without relief. MD Complaint: tooth pain Location: Tooth # (31, 32) Onset (ago): day(s) Duration: constant Severity: severe Severity scale (1-10): 10 Relieving factors: nothing Exacerbating factors: chewing Context: history of dental caries Associated symptoms: gum swelling Treatment prior to arrival: oral analgesic Related Data Previous Rx's Medication Instructions Recorded amoxicillin 875 mg tablet 875 mg PO TID 7 days #21 tabs 11/27/22 oxycodone 5 mg tablet 5 mg PO Q8H PRN pain #6 tabs 11/27/22 Allergies Allergy/AdvReac Type Severity Reaction Status Date / Time No Known Allergies Allergy Verified 11/27/22 20:01 Review of Systems Review of Systems: As per HPI. Yes all other systems are reviewed and are negative Constitutional: Constitutional: Reports as per HPI [facility] Social History Social History Advance Directives: No Advance Directives Information Provided: No Physical Exam Vital Signs: Vital Signs: Last Vital Signs Temp 99.1 F 11/27/22 20:02 Pulse 77 11/27/22 20:02 Resp 18 11/27/22 20:02 BP 135/78 11/27/22 20:02 Pulse Ox 99 11/27/22 20:02 O2 Del Method Room Air 11/27/22 20:02 BMI result Body Mass Index 43.1 Vital signs have been reviewed and appear to be correct. Blood pressure normal. Heart rate normal. Respiratory rate normal. Temperature normal. Oxygen saturation normal. Const: General: cooperative, healthy appearing and no acute distress Orientation/consciousness: oriented to person, oriented to place, oriented to time and patient oriented x3 Limitations: no limitations HEENT: Head: Yes normocephalic and Yes atraumatic Ears: external ears normal General nose exam: Normal external nose present Face and sinus: Yes face symmetric Mouth: Normal oral and palatal mucosa present, lip normal, tongue normal, oropharynx normal and moist mucous membranes Teeth and gingiva: abnormal tooth and associated gingiva lower right tender, with associated gingival edema and dentin fractured and poor dentition Throat: Yes posterior oropharynx normal, Yes uvula midline and No uvular edema Eyes: Pupils: Equal, round and reactive pupils present Neck: Neck: Yes normal visual inspection and Yes supple Resp: Effort & Inspection: normal respiratory effort and able to speak in complete sentences Auscultation: clear to auscultation bilaterally Cardio: Rate: regular rate Rhythm: regular rhythm Heart sounds: S1 normal heart sound present and S2 normal heart sound present GI: Palpation (GI): Soft to palpation and nontender Auscultation: normoactive bowel sounds : General: Yes no CVA tenderness Back/Spine/Pelvis: Back: no CVA tenderness Skin: General skin exam: elasticity normal and turgor normal Neuro: General: oriented to person, oriented to place, oriented to time, patient oriented x3, moves all extremities, no focal motor deficits and CN's II-XI intact bilaterally Cranial nerves: Yes Equal, round and reactive pupils present Cognition (Neuro): normal cognition Extrem: General: Yes full ROM, Yes no pedal edema and Yes no calf tenderness Psych: Mental Status: mental status grossly normal Affect: normal affect Thought process: Normal thought process present Medical Decision Making Medical Decision Making [facility] Narrative: Patient is a 37-year-old female presenting to the emergency department with complaint of right lower jaw pain since yesterday. On exam patient is awake, A+Ox3, VS WNL, afebrile, normal neurological exam without focal deficits, tenderness to teeth #31 & 32, dentin appears fractured, with associated gingival edema, no fluctuance. Given reported symptoms and physical exam findings, initial differential includes dental pain, dental infection, dental abscess. Will start patient on antibiotics and provide patient with pain medication to manage her pain until her dentist appointment tomorrow. Advised patient she can also gargle with warm salt water several times daily. Return precautions discussed. Patient verbalized understanding of and agreement with plan. Differential Diagnosis Differential Diagnoses: The differential diagnosis associated with the presentation includes As per MDM. External Record Review External record reviewed: Inpatient record, Office record and Outpatient record Prescription Management I considered prescription management with: Pain Medication and Antibiotic Discharge Plan Discharge Clinical Impression: Dental infection, Pain, dental Patient Disposition: Home, Self-Care Instructions: Toothache (ED) Additional Instructions: You are being prescribed an antibiotic for your dental infection, please complete the full course as prescribed unless otherwise instructed by your dentist. You are being prescribed oxycodone for your dental pain. Please take this medication as prescribed and do not use with alcohol or drive while taking this medication. You can also take 650 mg Tylenol or 600 mg ibuprofen every 6 hours as needed for pain. If necessary, you can alternate these medications every 3 hours, for example, at noon take Tylenol, then at 3:00 p.m. take ibuprofen, then at 6:00 p.m. take Tylenol, etc. Please keep the appointment with your dentist tomorrow. Return to the emergency department if you experience worsening pain, drainage from your gums, fever 100.4 F, are unable to open your jaw, Prescriptions: New amoxicillin 875 mg tablet 875 mg PO TID 7 Days Qty: 21 0RF oxycodone 5 mg tablet 5 mg PO Q8H PRN (Reason: pain) Qty: 6 0RF Rx Instructions: Partial Fill upon patient request.
== END 2022-11-27 20:48 | disposition home or self-care (01) ==
PROVIDERS: Emergency Provider Emergency Medicine Emergency Medical Services
DX: K04.7 Periapical abscess without sinus (principal)
CPT/HCPCS: 99282; 99283

== ENCOUNTER 2023-05-06 13:52 | Emergency (ER) | payer OTHER, SELFPAY ==
[2023-05-06 14:05] VITALS: BP 150/83; PULSE 61; RESP 18; TEMP 37.2; O2SAT 97; BMI 41.6
--- NOTE | 2023-05-06 14:05 | ED.GENADULT ---
HPI - General Adult General Chief complaint: Dental/Oral Stated complaint: facial swelling Time Seen by Provider: 05/06/23 17:11 Source: patient and RN notes reviewed Mode of arrival: ambulatory Limitations: no limitations History of Present Illness HPI narrative: This is a 37-year-old female, with no known medical problems, presenting to the emergency department with complaints of right dental pain for the last 2 days. Patient states that she has a known broken tooth on her right lower gumline. She states that the pain has become severe and she is unable to sleep. She is able to open and close her jaw. No fevers or chills. No chest pain, shortness breast, abdominal pain, nausea, vomiting or diarrhea. She has been taking ibuprofen for her pain which has provided her without any relief. No other complaints or concerns at this time. MD complaint: Dental pain Onset (ago): day(s) Radiation: non-radiation Quality: stabbing and aching Pain Consistency: constant Relieving factors: none Exacerbating factors: none Associated symptoms: denies other symptoms Treatments prior to arrival: NSAID Related Data Previous Rx's Medication Instructions Recorded doxycycline hyclate 100 mg 100 mg IV Q12H #20 ea 02/03/22 intravenous powder for solution (Doxy-100) hydromorphone 0.5 mg/0.5 mL 0.5 mg IVPUSH Q4H PRN Pain, Severe 02/03/22 injection syringe (Pain Scale 7-10) #10 mL metronidazole 500 mg/100 mL in 500 mg IV Q12H #300 mL 02/03/22 sodium chlor(iso) intravenous piggyback oxycodone 5 mg tablet 10 mg (2 x 5 mg) PO Q4H PRN Pain, 02/03/22 Moderate (Pain Scale 4-6 #30 tabs piperacillin-tazobactam 3.375 3.375 g (56.25 mL) IV Q6H #1,200 mL 02/03/22 gram/50 mL dextrose(iso-os) IV piggyback (Zosyn) amoxicillin 875 mg tablet 875 mg PO TID 7 days #21 tabs 11/27/22 oxycodone 5 mg tablet 5 mg PO Q8H PRN pain #6 tabs 11/27/22 acetaminophen 500 mg tablet 1,000 mg (2 x 500 mg) PO Q6H PRN 05/06/23 (Tylenol Extra Strength) pain #30 tabs amoxicillin 875 mg-potassium 1 tab PO BID 7 days #13 tabs 05/06/23 clavulanate 125 mg tablet ibuprofen 600 mg tablet 600 mg PO Q6H PRN fever or pain 05/06/23 #30 tabs Allergies Allergy/AdvReac Type Severity Reaction Status Date / Time strawberry [STRAWBERRY] Allergy Mild ITCHING Verified 05/06/23 14:08 Review of Systems Review of Systems: Yes all other systems are reviewed and are negative Constitutional: Constitutional: Reports as per [facility] Past Medical History Attestation statement: The following information was validated with the patient. Medical History Cocaine abuse Social History Social History Household Members: Other Household Members Other:: cousin Housing: Apartment Do you presently have visiting nurse or other home services: No Patient Tobacco Use Status: Current everyday Tobacco user Cigarette Packs Per Day: 0.4 Cigarettes Per Day: 8.0 Years Smoked: 15 Second Hand Smoke Exposure: No Advance Directives: No Advance Directives Information Provided: No service: No Current occupational status: employed Physical Exam ED Vital Signs: Vital Signs - 24 hr 05/06/23 14:05 05/06/23 16:29 Temperature 99 F 98.6 F Pulse Rate 61 60 Respiratory Rate 18 19 Blood Pressure 150/83 H 127/82 Pulse Oximetry 97 97 Oxygen Delivery Method Room Air Room Air BMI result Body Mass Index 41.6 Const General: cooperative, comfortable and no acute distress Orientation/consciousness: patient oriented x3 Limitations: no limitations HENMT Other: Mild right-sided facial swelling noted. Head: Yes normal to inspection, Yes normocephalic and Yes atraumatic Ears: hearing grossly normal bilaterally General nose exam: Normal external nose present Face and sinus: Yes normal facial exam Mouth: Normal oral and palatal mucosa present, oropharynx normal and moist mucous membranes Teeth image: 1. Tooth number 28, broken with dental decay, no surrounding gingival erythema, edema or fluctuance. Throat: Yes posterior oropharynx normal Eyes General: appearance normal, both eyes and all related structures Eyelids: Yes eyelids normal Conjunctivae: conjunctivae normal Sclerae: sclerae normal Pupils: Equal, round and reactive pupils present EOM: EOMs intact bilaterally Neck Neck: Yes normal visual inspection, Yes full ROM and Yes no lymphadenopathy Lymphatic: no lymphadenopathy noted Chest Chest palpation & inspection: normal inspection of the chest Resp Effort & Inspection: normal respiratory effort and able to speak in complete sentences Auscultation: clear to auscultation bilaterally, no crackles, no rales, no rhonchi and no wheezes Cardio Rate: regular rate Rhythm: regular rhythm Heart sounds: S1 normal heart sound present and S2 normal heart sound present GI Inspection: Yes normal to inspection Skin General skin exam: no rashes or lesions noted Trauma: no lacerations or abrasions Wounds: no wounds Neuro General: patient oriented x3 and moves all extremities Cranial nerves: Yes Equal, round and reactive pupils present Extrem General: Yes normal to inspection Right upper extremity: normal to inspection Left upper extremity: normal to inspection Right lower extremity: normal to inspection Left lower extremity: normal to inspection Course Course Course Narrative: This is a rapid medical exam: Additional HPI, ROS, PE not included below will be deferred to primary provider. Patient is a 37-year-old female presenting to the ED with complaint of right sided facial swelling and pain. Refusing to allow exam in triage. External swelling noted. Has appointment with dentist on Friday. Plan: CT, labs Medical Decision Making Medical Decision Making [facility] Narrative: This is a 37-year-old female, with no known medical problems, presenting to the emergency department with complaints of right-sided facial pain x2 days. Patient has known dental fracture, and is scheduled to follow-up with her dentist on Friday. Physical exam findings concerning for dental decay. There is no induration or fluctuance suggestive of a dental abscess. She is able to open and close her jaw. Tooth is exquisitely tender. She has not trialed oral antibiotics. A CT scan of her maxillofacial bones was initially or ordered by a previous provider. She does not have significant facial swelling at this time and she is able to open and close her jaw without difficulty. She does not have leukocytosis, she does have a normocytic anemia noted. Chemistry within normal limits. She has not . I think it is reasonable to trial oral antibiotics as symptoms consistent with dental pain/dental infection. She was given her 1st dose of Augmentin in the department. Patient given strict return precautions. She understands and agrees with plan. Stable for discharge Differential Diagnosis Differential Diagnoses: The differential diagnosis associated with the presentation includes Dental decay, dental abscess, osteomyelitis-unlikely Admission/Observation Consideration of admission/observation: Escalation of care including admission/observation considered Lab Data MDM Lab Attestation statement: I reviewed the patient's lab results. No leukocytosis, normocytic anemia noted. Chemistry nondiagnostic. 05/06/23 15:33 05/06/23 15:33 Labs: Lab Results 05/06/23 Range/Units 15:33 WBC 8.4 (4.8-10.8) X10*3/uL RBC 4.40 (4.20-5.50) X10*6/uL Hgb 11.6 L D (12.0-16.0) g/dl Hct 35.9 L D (37.0-47.0) % MCV 81.6 (80.0-98.0) fL MCH 26.4 L (27.0-33.0) pg MCHC 32.3 (31.0-35.0) g/dl RDW 14.6 (11.0-16.0) % Plt Count 218 D (160-400) X10*3/uL MPV 9.7 (9.4-12.3) fL Immature Gran % (Auto) 0.4 (0.0-0.4) % Neut % (Auto) 68.7 (45-73) % Lymph % (Auto) 22.4 (20-40) % [place] % (Auto) 6.5 (2-11) % Eos % (Auto) 1.8 (0-4) % Baso % (Auto) 0.2 (0-2) % Lymph # (Auto) 1.9 (1.2-4.9) X10*3/uL [place] # (Auto) 0.6 (0.1-1.2) X10*3/uL Eos # (Auto) 0.2 (0.0-0.4) X10*3/uL Baso # (Auto) 0.0 (0.0-0.2) X10*3/uL Abs Immat Gran (auto) 0.03 (0.00-0.03) X10*3/uL Absolute Neuts (auto) 5.8 (2.0-8.3) x10*3/uL Absolute Nucleated RBC 0.000 (0.0-0.012) X10*3/uL Nucleated RBC % (auto) 0.0 (0.0-0.2) /100WBC Sodium 140 (135-145) mmol/L Potassium 4.2 (3.3-5.1) mmol/L Chloride 107 (96-108) mmol/L Carbon Dioxide 27 (22-29) mmol/L Anion Gap 10 L (12-20) BUN 8 L (9-16) mg/dL Creatinine 0.67 (0.5-1.4) mg/dL Estim Creat Clear Calc 147.1 Estimated GFR > 60 Random Glucose 105 (60-115) mg/dL Calcium 8.8 D (8.4-10.2) mg/dL Total Bilirubin 0.2 (0.0-1.0) mg/dL AST 16 (5-31) U/L ALT 10 (0-31) U/L Alkaline Phosphatase 76 (39-117) U/L Total Protein 6.9 (6.5-8.0) g/dL Albumin 3.8 (3.5-5.0) g/dL Beta HCG, Quant < 2 mIU/mL Discharge Plan Discharge Clinical Impression: Pain, dental Patient Disposition: Home, Self-Care Instructions: Toothache (ED) Additional Instructions: Please take prescribed antibiotic as directed. Finish the entire course even if you are feeling better. Follow-up with your dentist on Friday as scheduled. Continue taking ibuprofen and Tylenol as needed for pain and symptoms. Eat soft foods for the next several days. If any new or worsening symptoms occur including but not limited to worsening pain, fevers or chills, inability to open and close your jaw, please return for re-evaluation. Prescriptions: New amoxicillin-pot clavulanate 875-125 mg tablet 1 tab PO BID 7 Days Qty: 13 0RF ibuprofen 600 mg tablet 600 mg PO Q6H PRN (Reason: fever or pain) Qty: 30 0RF acetaminophen [Tylenol Extra Strength] 500 mg tablet 1,000 mg PO Q6H PRN (Reason: pain) Qty: 30 0RF No Action metronidazole in NaCl (iso-os) 500 mg/100 mL Piggyback 500 mg IV Q12H Qty: 300 0RF doxycycline hyclate [Doxy-100] 100 mg Recon Soln 100 mg IV Q12H Qty: 20 0RF oxycodone 5 mg Tablet 10 mg PO Q4H PRN (Reason: Pain, Moderate (Pain Scale 4-6) Qty: 30 0RF Rx Instructions: Partial Fill upon patient request. hydromorphone 0.5 mg/0.5 mL Syringe 0.5 mg IVPUSH Q4H PRN (Reason: Pain, Severe (Pain Scale 7-10)) Qty: 10 0RF Protocol: Hold for RR < HOLD and contact provider for RR < (bpm): 12 Rx Instructions: Partial Fill upon patient request. Zosyn in dextrose (iso-osm) 3.375 gram/50 mL piggyback 3.375 g IV Q6H Qty: 1200 0RF amoxicillin 875 mg tablet 875 mg PO TID 7 Days Qty: 21 0RF oxycodone 5 mg tablet 5 mg PO Q8H PRN (Reason: pain) Qty: 6 0RF Rx Instructions: Partial Fill upon patient request.
[2023-05-06 15:38] LABS: MANUAL DIFF FLAG NO
[2023-05-06 15:39] LABS: Basophils Percent Auto 0.2 % (0-2); Eosinophils Absolute Auto 0.2 X10*3/uL (0.0-0.4); Eosinophils Percent Auto 1.8 % (0-4); Hematocrit 35.9 % (37.0-47.0); Hemoglobin 11.6 g/dl (12.0-16.0); Imm Gran Abs Auto 0.03 X10*3/uL (0.00-0.03); Imm Gran Pct Auto 0.4 % (0.0-0.4); Lymphocytes Absolute Auto 1.9 X10*3/uL (1.2-4.9); Lymphocytes Percent Auto 22.4 % (20-40); Mean Corpuscular HGB Conc 32.3 g/dl (31.0-35.0); Mean Corpuscular Hemoglobin 26.4 pg (27.0-33.0); Mean Corpuscular Volume 81.6 fL (80.0-98.0); Mean Platelet Volume 9.7 fL (9.4-12.3); Monocytes Absolute Auto 0.6 X10*3/uL (0.1-1.2); Monocytes Percent Auto 6.5 % (2-11); Neutrophils Absolute Auto 5.8 x10*3/uL (2.0-8.3); Neutrophils Percent Auto 68.7 % (45-73); Platelet Count 218 X10*3/uL (160-400); Red Cell Distribution Width 14.6 % (11.0-16.0); White Blood Count 8.4 X10*3/uL (4.8-10.8)
[2023-05-06 15:53] LABS: Alanine Aminotransferase 10 U/L (0-31); Albumin Level 3.8 g/dL (3.5-5.0); Alkaline Phosphatase 76 U/L (39-117); Anion Gap 10 (12-20); Aspartate Amino Transferase 16 U/L (5-31); Bilirubin Total 0.2 mg/dL (0.0-1.0); Blood Urea Nitrogen 8 mg/dL (9-16); Calcium 8.8 mg/dL (8.4-10.2); Carbon Dioxide 27 mmol/L (22-29); Chloride 107 mmol/L (96-108); Creatinine Clr Calc Pharmacy 147.1; Estimated Glomerular Filt Rate > 60; Glucose Random 105 mg/dL (60-115); Potassium 4.2 mmol/L (3.3-5.1); Sodium 140 mmol/L (135-145); Total Protein 6.9 g/dL (6.5-8.0)
[2023-05-06 16:29] VITALS: BP 127/82; PULSE 60; RESP 19; TEMP 37; O2SAT 97
[2023-05-06 17:12] LABS: HCG Quantitative < 2 mIU/mL
[2023-05-06] MEDS: Amoxicillin/Potassium Clav 875 MG TABLET PO (17:33)
== END 2023-05-06 17:40 | disposition home or self-care (01) ==
PROVIDERS: Registered Nurse Emergency; Emergency Provider Emergency Medicine; PCP Family Medicine
DX: K08.89 Other specified disorders of teeth and supporting structures (principal); F17.210 Nicotine dependence, cigarettes, uncomplicated; Z79.899 Other long term (current) drug therapy
CPT/HCPCS: 36415; 80053; 84702; 85025; 99282; 99283

== ENCOUNTER 2023-06-17 17:17 | Emergency (ER) | payer OTHER, SELFPAY ==
[2023-06-17 18:29] VITALS: BP 137/92; PULSE 77; RESP 16; TEMP 36.8; O2SAT 99; BMI 41.5
--- NOTE | 2023-06-17 18:32 | ED_ITS ---
HPI - Dental/Oral General Chief complaint: Dental/Oral Stated complaint: tooth pain Time Seen by Provider: 06/17/23 18:32 Source: patient Mode of arrival: ambulatory Limitations: no limitations History of Present Illness HPI Narrative: 37-year-old female with pmhx significant for PID, TOA, poor dentition presents to the ED today for evaluation of dental pain x1 week. Pain is located to her right lower teeth. Admits to 2 cracked teeth in that area. She has followed up with her dentist and has extraction procedure scheduled for next week. She presents today as she can no longer handle the pain. She has been taking ibuprofen at home without relief. Denies fevers, chills, N/V, difficulty swallowing, difficulty controlling secretions. MD Complaint: tooth pain Related Data Previous Rx's ?Medication ?Instructions ?Recorded doxycycline hyclate 100 mg 100 mg IV Q12H #20 ea 02/03/22 intravenous powder for solution (Doxy-100) hydromorphone 0.5 mg/0.5 mL 0.5 mg IVPUSH Q4H PRN Pain, Severe 02/03/22 injection syringe (Pain Scale 7-10) #10 mL metronidazole 500 mg/100 mL in 500 mg IV Q12H #300 mL 02/03/22 sodium chlor(iso) intravenous piggyback oxycodone 5 mg tablet 10 mg (2 x 5 mg) PO Q4H PRN Pain, 02/03/22 Moderate (Pain Scale 4-6 #30 tabs piperacillin-tazobactam 3.375 3.375 g (56.25 mL) IV Q6H #1,200 mL 02/03/22 gram/50 mL dextrose(iso-os) IV piggyback (Zosyn) amoxicillin 875 mg tablet 875 mg PO TID 7 days #21 tabs 11/27/22 oxycodone 5 mg tablet 5 mg PO Q8H PRN pain #6 tabs 11/27/22 acetaminophen 500 mg tablet 1,000 mg (2 x 500 mg) PO Q6H PRN 05/06/23 (Tylenol Extra Strength) pain #30 tabs amoxicillin 875 mg-potassium 1 tab PO BID 7 days #13 tabs 05/06/23 clavulanate 125 mg tablet ibuprofen 600 mg tablet 600 mg PO Q6H PRN fever or pain 05/06/23 #30 tabs amoxicillin 875 mg-potassium 1 tab PO Q12H 7 days #14 tabs 06/17/23 clavulanate 125 mg tablet oxycodone 5 mg tablet 5 mg PO Q8H PRN pain (scale score 06/17/23 7-10) #6 tabs Allergies Allergy/AdvReac Type Severity Reaction Status Date / Time strawberry [STRAWBERRY] Allergy Mild ITCHING Verified 06/17/23 18:30 Review of Systems 2 Review of Systems: Constitutional: No fever, chills, fatigue, night sweats, weight changes ENT/Mouth: No ear pain, hearing loss, nasal congestion, sinus pain, rhinorrhea, sore throat, +dental pain Eyes: No eye pain, swelling, redness, vision changes, discharge Cardio: No chest pain, palpitations, MEDINA, orthopnea, peripheral edema Pulm: No SOB, cough, sputum, wheezing, dyspnea, hemoptysis GI: No nausea, vomiting, hematemesis, abdominal pain, diarrhea, constipation, hematochezia, melena : No irregular bleeding, dysuria, frequency, urgency, hesitancy, hematuria, flank pain, urinary flow changes, urinary incontinence or retention MSK: No back pain, neck pain, joint pain, myalgias Skin: No lesions, rashes Neuro: No weakness, numbness, paresthesias, LOC, dizziness, headache Psych: No anxiety/panic, depression, SI/HI, AH/VH All other systems reviewed and are negative. [facility] Past Medical History Attestation statement: The following information was validated with the patient. Source: old records reviewed and nursing notes reviewed Medical History Cocaine abuse Social History Social History Household Members: Other Household Members Other:: cousin Housing: Apartment Do you presently have visiting nurse or other home services: No Patient Tobacco Use Status: Current everyday Tobacco user Cigarette Packs Per Day: 0.4 Cigarettes Per Day: 8.0 Years Smoked: 15 Second Hand Smoke Exposure: No service: No Current occupational status: employed Physical Exam 2 Vital Signs: Vital Signs: Vital signs stable, afebrile. Const: General: cooperative, comfortable and no acute distress O rientation/consciousness: patient oriented x3 Limitations: no limitations HEENT: Other: + No facial edema. Tongue and lips wnl + multiple dental caries and poor dentit ion. right lower molars with localized periapical swelling to the lingual ginginva. No pointing. No active bleeding/ discharge. TTP. No palpable fluctuance. + No edema to buccal mucosa + Posterior oropharynx without erythema/ edema. Uvula midline. Controlling secretions and speaking in complete sentences + No submandublar or submental LAD + No cervical LAD + no anterior neck swelling + no trismus Head: Yes normal to inspection, Yes No palpable skull fracture present, Yes normocephalic and Yes atraumatic Ears: hearing grossly normal bilaterally, external ears normal, TM's normal bilaterally, EAC's normal, mastoids normal and no periauricular adenopathy Teeth image: 1. Eyes: General: appearance normal, both eyes and all related structures C onjunctivae: conjunctivae normal Sclerae: sclerae normal Pupils: Equal, round and reactive pupils present Neck: Neck: Yes normal visual inspection and Yes no lymphadenopathy Resp: Effort & Inspection: normal respiratory effort and no stridor A uscultation: clear to auscultation bilaterally Cardio: Rate: regular rate Rhythm: regular rhythm Skin: General skin exam: no rashes or lesions noted Neuro: General: patient oriented x3 and gait normal Cranial nerves: Yes Equal, round and reactive pupils present Course Course Course Narrative: 183 -- patient has obvious dental infection without evidence of abscess. There is no anterior neck swelling to indicate Melchor's angina. Will send patient home with Augmentin along with oxycodone for breakthrough pain. She is agreeable with this. Patient has remained stable throughout ED visit today. Discussed worrisome signs and symptoms and when to return to the ED. All questions answered at this time. Patient is agreeable with disposition and stable for discharge. Medical Decision Making Medical Decision Making MDM Narrative: 37-year-old female with pmhx significant for PID, TOA, poor dentition presents to the ED today for evaluation of dental pain x1 week. Patient hypertensive. Vitals otherwise WNL. Afebrile. No facial edema. Tongue and lips wnl. multiple dental caries and poor dentition. right lower molars with localized periapical swelling to the lingual ginginva. No pointing. No active bleeding/ discharge. TTP. No palpable fluctuance. No edema to buccal mucosa. Posterior oropharynx without erythema/edema. Uvula midline. Controlling secretions and speaking in complete sentences. No submandublar or submental LAD. No cervical LAD. no anterior neck swelling. no trismus Differential includes dental/ periapical abscess/infection, apthous stomatitis. Unlikely mono, herpes, sialadenitis, sialolithiasis, QUARTER BACKER, retropharyngeal abscess, deep neck infection, osteomyelitis, facial cellulitis/ abscess, lymphoma. Plan for pain control and discharge home with antibiotics and dentist follow up. Differential Diagnosis Differential Diagnoses: The differential diagnosis associated with the presentation includes as above. Admission/Observation Not indicated. External Record Review External record reviewed: Inpatient record, Office record, Outpatient record, Prior outpatient labs, Prior outpatient radiology, Primary care record and Outside ED record Tests considered The following testing was considered but not selected: I considered obtaining a CT of the soft tissues neck however these is no evidence of ludwigs angina or concern for deep tissue infection. Not warranted at this time. Prescription Management I considered prescription management with: Pain Medication and Antibiotic Social Determinants Patient?s care significantly limited by Social Determinants of Health including: Other Social Determinant of Health Critical Care Time Critical Care Time Critical Care Time: No Discharge Plan Discharge Clinical Impression: Dental abscess, Dental caries Patient Disposition: Home, Self-Care Instructions: Dental Abscess (ED), Tooth Extraction (DC) Additional Instructions: You were seen in the ED today for dental infection. Augmentin is an antibiotic that has been sent to your pharmacy. Take this as prescribed. Do not skip any doses or finish this early as this may cause infection to come back or worsen. Keep the appointment that you have with your dentist next week as you will require tooth extraction. If this appointment falls through, you may follow-up with [facility] as they are currently taking new patients. Their phone number is [phone]. Take Tylenol at home for pain. Oxycodone is a controlled medication that has been sent to your pharmacy for you to take for breakthrough pain. Return with new or worsening symptoms. The case of an emergency call 911. Prescriptions: New amoxicillin-pot clavulanate 875-125 mg tablet 1 tab PO Q12H 7 Days Qty: 14 0RF oxycodone 5 mg tablet 5 mg PO Q8H PRN (Reason: pain (scale score 7-10)) Qty: 6 0RF Rx Instructions: Partial Fill upon patient request. No Action metronidazole in NaCl (iso-os) 500 mg/100 mL Piggyback 500 mg IV Q12H Qty: 300 0RF doxycycline hyclate [Doxy-100] 100 mg Recon Soln 100 mg IV Q12H Qty: 20 0RF oxycodone 5 mg Tablet 10 mg PO Q4H PRN (Reason: Pain, Moderate (Pain Scale 4-6) Qty: 30 0RF Rx Instructions: Partial Fill upon patient request. hydromorphone 0.5 mg/0.5 mL Syringe 0.5 mg IVPUSH Q4H PRN (Reason: Pain, Severe (Pain Scale 7-10)) Qty: 10 0RF Protocol: Hold for RR < HOLD and contact provider for RR < (bpm): 12 Rx Instructions: Partial Fill upon patient request. Zosyn in dextrose (iso-osm) 3.375 gram/50 mL piggyback 3.375 g IV Q6H Qty: 1200 0RF amoxicillin 875 mg tablet 875 mg PO TID 7 Days Qty: 21 0RF oxycodone 5 mg tablet 5 mg PO Q8H PRN (Reason: pain) Qty: 6 0RF Rx Instructions: Partial Fill upon patient request. amoxicillin-pot clavulanate 875-125 mg tablet 1 tab PO BID 7 Days Qty: 13 0RF ibuprofen 600 mg tablet 600 mg PO Q6H PRN (Reason: fever or pain) Qty: 30 0RF acetaminophen [Tylenol Extra Strength] 500 mg tablet 1,000 mg PO Q6H PRN (Reason: pain) Qty: 30 0RF Print Language: Romanian
--- NOTE | 2023-06-17 18:59 | PC.NURSE ---
pt was seen and discharged by the triage provider
== END 2023-06-17 18:40 | disposition home or self-care (01) ==
LOC: HO.ED 18:34
PROVIDERS: Emergency Provider Emergency Medicine
DX: K08.89 Other specified disorders of teeth and supporting structures (principal); K02.9 Dental caries, unspecified; K04.7 Periapical abscess without sinus
CPT/HCPCS: 99281

== ENCOUNTER 2023-06-25 21:53 | Emergency (ER) | payer OTHER, SELFPAY ==
--- NOTE | 2023-06-25 | ECG_ITS ---
Test Reason : sob Blood Pressure : / mmHG Vent. Rate : 069 BPM Atrial Rate : 069 BPM P-R Int : 204 ms QRS Dur : 088 ms QT Int : 392 ms P-R-T Axes : 049 035 041 degrees QTc Int : 420 ms Normal sinus rhythm Possible Left atrial enlargement Cannot rule out Anterior infarct , age undetermined Abnormal ECG When compared with ECG of 26-JAN-2022 00:56, Non-specific change in ST segment in Lateral leads Nonspecific T wave abnormality no longer evident in Inferior leads Referred By: Generic ED Physician Electronically Signed By:JAMEY MEEKS
[2023-06-25 22:44] VITALS: BP 147/75; PULSE 62; RESP 16; TEMP 37.1; O2SAT 97; BMI 43.3
--- NOTE | 2023-06-25 22:50 | PC.NURSE ---
pt was nervouse about her nasal congestion and ear pain. pt looked up her symptoms and though she was having a mi due to her anxiety. pt denies chest pain
--- NOTE | 2023-06-26 00:25 | MHC.EDTECH ---
Patient rsv/covid swab and streap swab collected all sent to lab .
[2023-06-26 00:47] LABS: IDNOW Serial# 58CA691E; Strep A Nucleic Acid Negative (Negative)
[2023-06-26 01:08] LABS: Influenza A PCR NEGATIVE (Negative); Influenza B PCR NEGATIVE (Negative); Resp Syncy Virus RNA Qual PCR NEGATIVE (Negative); SARS COV2 PCR INHOUSE NEGATIVE (Negative)
[2023-06-26 01:42] VITALS: BP 119/72; PULSE 63; RESP 16; TEMP 36.8; O2SAT 97
--- NOTE | 2023-06-26 03:01 | ED.EAR ---
HPI - Ear Problem General Chief complaint: Ear Problems Stated complaint: Chest tightness, difficulty breathing Time Seen by Provider: 06/26/23 02:15 Source: patient Mode of arrival: ambulatory Limitations: no limitations History of Present Illness HPI Narrative: 37-year-old female came in for evaluation of sinus congestion, runny nose with, coughing, bilateral ear pain for 2 weeks, no sick contacts, no recent travel, left ear hurts more than the right ear. Related Data Previous Rx's ?Medication ?Instructions ?Recorded doxycycline hyclate 100 mg 100 mg IV Q12H #20 ea 02/03/22 intravenous powder for solution (Doxy-100) hydromorphone 0.5 mg/0.5 mL 0.5 mg IVPUSH Q4H PRN Pain, Severe 02/03/22 injection syringe (Pain Scale 7-10) #10 mL metronidazole 500 mg/100 mL in 500 mg IV Q12H #300 mL 02/03/22 sodium chlor(iso) intravenous piggyback oxycodone 5 mg tablet 10 mg (2 x 5 mg) PO Q4H PRN Pain, 02/03/22 Moderate (Pain Scale 4-6 #30 tabs piperacillin-tazobactam 3.375 3.375 g (56.25 mL) IV Q6H #1,200 mL 02/03/22 gram/50 mL dextrose(iso-os) IV piggyback (Zosyn) amoxicillin 875 mg tablet 875 mg PO TID 7 days #21 tabs 11/27/22 oxycodone 5 mg tablet 5 mg PO Q8H PRN pain #6 tabs 11/27/22 acetaminophen 500 mg tablet 1,000 mg (2 x 500 mg) PO Q6H PRN 05/06/23 (Tylenol Extra Strength) pain #30 tabs amoxicillin 875 mg-potassium 1 tab PO BID 7 days #13 tabs 05/06/23 clavulanate 125 mg tablet ibuprofen 600 mg tablet 600 mg PO Q6H PRN fever or pain 05/06/23 #30 tabs amoxicillin 875 mg-potassium 1 tab PO Q12H 7 days #14 tabs 06/17/23 clavulanate 125 mg tablet oxycodone 5 mg tablet 5 mg PO Q8H PRN pain (scale score 06/17/23 7-10) #6 tabs Allergies Allergy/AdvReac Type Severity Reaction Status Date / Time strawberry [STRAWBERRY] Allergy Mild ITCHING Verified 06/25/23 22:47 Review of Systems Review of Systems: All other systems are reviewed and are negative Constitutional: Reports as per HPI and Reports no additional constitutional complaints Eyes: Reports as per HPI and Reports no additional eye complaints Reports system reviewed and no additional complaints, except as documented Cardiovascular: Reports as per HPI and Reports no additional cardiovascular complaints Respiratory: Reports as per HPI and Reports no additional respiratory complaints Gastrointestinal: Reports as per HPI and Reports no additional gastrointestinal complaints Genitourinary: Reports no additional female genitourinary complaints Musculoskeletal: Reports no additional musculoskeletal complaints Skin/Breast: Reports system reviewed and no additional complaints, except as docu Psychiatric: Reports no additional psychiatric complaints Endocrine: Reports no additional endocrine complaints Hematologic/Lymphatic: Reports no additional hematologic/lymphatic complaints Allergic/Immunologic: Reports no additional allergic/immunologic complaints Reports system reviewed and no additional complaints, except as documented and Reports Abnormal speech present [facility] Past Medical History Medical History Cocaine abuse Social History Social History Household Members: Other Household Members Other:: cousin Housing: Apartment Do you presently have visiting nurse or other home services: No Patient Tobacco Use Status: Current everyday Tobacco user Cigarette Packs Per Day: 0.4 Cigarettes Per Day: 8.0 Years Smoked: 15 Second Hand Smoke Exposure: No Advance Directives: No Advance Directives Information Provided: No service: No Current occupational status: employed Physical Exam Vital Signs: Vital Signs: Last Vital Signs Temp 98.2 F 06/26/23 01:42 Pulse 63 06/26/23 01:42 Resp 16 06/26/23 01:42 BP 119/72 06/26/23 01:42 Pulse Ox 97 06/26/23 01:42 O2 Del Method Room Air 06/26/23 01:42 BMI result Body Mass Index 43.3 Vital signs have been reviewed and appear to be correct. Blood pressure elevated. Heart rate normal. Respiratory rate normal. Temperature normal. Oxygen saturation normal. Appearance: Alert. Oriented X3. No acute distress. Head: Normal external exam. Normocephalic. Atraumatic. No Crow signs noted. No raccoon eyes noted Eyes: PERRLA. EOMI. Conjunctiva and sclera normal. Eyelids normal. ENT: TM's bilaterally erythematous. Bilateral maxillary sinus tenderness on percussion, Pharynx erythematous, Uvula midline. Moist mucous membranes. No trismus noted. No drooling noted. No muffled voice noted. Neck: Normal inspection. Neck supple. FROM. No adenopathy. Thyroid Normal. No meningeal signs. No neck mass noted. CVS: Normal heart rate and rhythm. Heart sound normal. No murmurs noted. Pulses normal throughout. Respiratory: No respiratory distress. Painless inspiration. Breath sounds normal. No wheezes/rales/rhonchi noted. Chest nontender. No accessory muscle usage noted or decreased air movement noted. Abdomen: Soft and nontender. Bowel sounds normal in all 4 quadrants. No distention noted. No organomegaly noted. No visible injury noted. Back: No CVA tenderness. Full range of motion noted. Skin: Skin warm and dry. Normal skin color. Normal skin turgor. No rashes/lesions/lacerations noted. Extremities: No lower extremity edema. Extremities exhibit normal range of motion. Extremities nontender. Neuro: Oriented X 3. Cranial nerve exam: II-XII are grossly intact No motor deficit. No sensory deficit. Reflexes normal. Course Reevaluation(s) Reevaluation #1: Bilateral upper respiratory symptoms and otitis media and bilateral maxillary sinusitis will start on Augmentin. Normal vital signs was reviewed in the ED. no tachycardia, no tachypnea, normal O2 saturation. Time: 03:06 Medical Decision Making Differential Diagnosis Differential Diagnoses: The differential diagnosis associated with the presentation includes (Influenza infection, RSV, strep pharyngitis, sinusitis.) Admission/Observation Consideration of admission/observation: Escalation of care including admission/observation considered Lab Data MDM Lab Attestation statement: I reviewed the patient's lab results. Labs: Lab Results 06/26/23 Range/Units 00:23 Influenza Type A (PCR) NEGATIVE (Negative) Influenza Type B (PCR) NEGATIVE (Negative) RSV RNA Qual (PCR) NEGATIVE (Negative) SARS-CoV-2 RNA (RT-PCR) NEGATIVE (Negative) S. pyogenes GrpA ANDRE Negative (Negative) Independent Interpretation I performed an independent interpretation of an: EKG (Normal sinus rhythm at 69 beats per minute with first-degree AV block, normal intervals, no acute ST elevation.) Discharge Plan Discharge Clinical Impression: Otitis media, Sinusitis, acute maxillary Patient Disposition: Home, Self-Care Instructions: Sinusitis (ED), Ear Infection (ED) Additional Instructions: Follow-up with your PCP. Prescriptions: No Action metronidazole in NaCl (iso-os) 500 mg/100 mL Piggyback 500 mg IV Q12H Qty: 300 0RF doxycycline hyclate [Doxy-100] 100 mg Recon Soln 100 mg IV Q12H Qty: 20 0RF oxycodone 5 mg Tablet 10 mg PO Q4H PRN (Reason: Pain, Moderate (Pain Scale 4-6) Qty: 30 0RF Rx Instructions: Partial Fill upon patient request. hydromorphone 0.5 mg/0.5 mL Syringe 0.5 mg IVPUSH Q4H PRN (Reason: Pain, Severe (Pain Scale 7-10)) Qty: 10 0RF Protocol: Hold for RR < HOLD and contact provider for RR < (bpm): 12 Rx Instructions: Partial Fill upon patient request. Zosyn in dextrose (iso-osm) 3.375 gram/50 mL piggyback 3.375 g IV Q6H Qty: 1200 0RF amoxicillin 875 mg tablet 875 mg PO TID 7 Days Qty: 21 0RF oxycodone 5 mg tablet 5 mg PO Q8H PRN (Reason: pain) Qty: 6 0RF Rx Instructions: Partial Fill upon patient request. amoxicillin-pot clavulanate 875-125 mg tablet 1 tab PO BID 7 Days Qty: 13 0RF ibuprofen 600 mg tablet 600 mg PO Q6H PRN (Reason: fever or pain) Qty: 30 0RF acetaminophen [Tylenol Extra Strength] 500 mg tablet 1,000 mg PO Q6H PRN (Reason: pain) Qty: 30 0RF amoxicillin-pot clavulanate 875-125 mg tablet 1 tab PO Q12H 7 Days Qty: 14 0RF oxycodone 5 mg tablet 5 mg PO Q8H PRN (Reason: pain (scale score 7-10)) Qty: 6 0RF Rx Instructions: Partial Fill upon patient request. Print Language: Maltese
[2023-06-26] MEDS: Amoxicillin/Potassium Clav 875 MG TABLET PO (03:20)
[2023-06-26 03:27] VITALS: BP 123/65; PULSE 71; RESP 16; TEMP 36.6; O2SAT 98
[2023-06-26 03:31] VITALS: BP 123/65; PULSE 71; RESP 16; TEMP 36.6; O2SAT 98
== END 2023-06-26 03:52 | disposition home or self-care (01) ==
PROVIDERS: Emergency Provider Emergency Medicine
DX: H66.93 Otitis media, unspecified, bilateral (principal); J32.0 Chronic maxillary sinusitis; R07.89 Other chest pain; R06.02 Shortness of breath; R05.9 Cough, unspecified; H92.03 Otalgia, bilateral; Z11.52 Encounter for screening for COVID-19; Z20.822 Contact with and (suspected) exposure to COVID-19; Z79.899 Other long term (current) drug therapy
CPT/HCPCS: 0241U; 87651; 93005; 99283; 99284

== ENCOUNTER → 2023-06-25 21:58 | Outpatient (BNV) | payer OTHER, SELFPAY | PROVIDERS: Emergency Provider Emergency Medicine; Visit Provider Internal Medicine | DX: R94.31 Abnormal electrocardiogram [ECG] [EKG] (principal) | CPT/HCPCS: 93010 ==

== ENCOUNTER 2023-07-04 11:04 | Emergency (ER) | payer OTHER, SELFPAY ==
--- NOTE | ~2023-07-04 | CT_ITS ---
EXAMINATION: CT HEAD WITHOUT CONTRAST CLINICAL INFORMATION: Headaches COMPARISON: CT head dated 12/05/2009. TECHNIQUE: Contiguous axial imaging was performed from the skull base to vertex without intravenous administration of contrast. This CT examination was performed using dose optimization techniques as appropriate, variously including the following: *Automated exposure control *Adjustment of mA and/or kV according to patient size (this includes techniques or standardized protocols for targeted exams where dose is matched to indication/reason for exam; i.e. extremities or head) *Use of iterative reconstruction technique DLP: 743 mGy-cm FINDINGS: There is no acute intracranial hemorrhage. There is no evidence of acute/subacute cerebral or cerebellar infarction. There is no mass effect or midline shift. No extra-axial fluid collection. The ventricles are normal in size. The orbits are symmetric and within normal limits. The calvarium is intact. Visualized paranasal sinuses are well aerated. Mastoid air cells are clear. CT/CT head/brain wo IV con IMPRESSION: No acute intracranial pathology. Normal noncontrast head CT.
[2023-07-04 11:26] VITALS: BP 128/80; PULSE 86; RESP 16; TEMP 36.6; O2SAT 96; BMI 41.8
--- NOTE | 2023-07-04 11:27 | ED.GENADULT ---
HPI - General Adult General Chief complaint: Headache Stated complaint: feels like brain and skin is on fire Time Seen by Provider: 07/04/23 16:02 Source: patient, RN notes reviewed and old records reviewed Mode of arrival: ambulatory Limitations: no limitations History of Present Illness HPI narrative: 37-year-old female who denies any past medical history presents for evaluation of a headache. She reports that she has had a global headache for the last 2 days. She also reports ?I feel like my skin has been on fire everywhere. ? Patient states that she developed anxiety after the onset of her symptoms. She denies any known rashes, head trauma. Denies any visual changes, lightheadedness, nausea vomiting Denies any chest pain shortness of breath Patient denies any alcohol or drug abuse Related Data Previous Rx's ?Medication ?Instructions ?Recorded doxycycline hyclate 100 mg 100 mg IV Q12H #20 ea 02/03/22 intravenous powder for solution (Doxy-100) hydromorphone 0.5 mg/0.5 mL 0.5 mg IVPUSH Q4H PRN Pain, Severe 02/03/22 injection syringe (Pain Scale 7-10) #10 mL metronidazole 500 mg/100 mL in 500 mg IV Q12H #300 mL 02/03/22 sodium chlor(iso) intravenous piggyback oxycodone 5 mg tablet 10 mg (2 x 5 mg) PO Q4H PRN Pain, 02/03/22 Moderate (Pain Scale 4-6 #30 tabs piperacillin-tazobactam 3.375 3.375 g (56.25 mL) IV Q6H #1,200 mL 02/03/22 gram/50 mL dextrose(iso-os) IV piggyback (Zosyn) amoxicillin 875 mg tablet 875 mg PO TID 7 days #21 tabs 11/27/22 oxycodone 5 mg tablet 5 mg PO Q8H PRN pain #6 tabs 11/27/22 acetaminophen 500 mg tablet 1,000 mg (2 x 500 mg) PO Q6H PRN 05/06/23 (Tylenol Extra Strength) pain #30 tabs amoxicillin 875 mg-potassium 1 tab PO BID 7 days #13 tabs 05/06/23 clavulanate 125 mg tablet ibuprofen 600 mg tablet 600 mg PO Q6H PRN fever or pain 05/06/23 #30 tabs amoxicillin 875 mg-potassium 1 tab PO Q12H 7 days #14 tabs 06/17/23 clavulanate 125 mg tablet oxycodone 5 mg tablet 5 mg PO Q8H PRN pain (scale score 06/17/23 7-10) #6 tabs amoxicillin 875 mg-potassium 1 tab PO BID #20 tabs 06/26/23 clavulanate 125 mg tablet Allergies Allergy/AdvReac Type Severity Reaction Status Date / Time strawberry [STRAWBERRY] Allergy Mild ITCHING Verified 07/04/23 11:31 Review of Systems Constitutional: Constitutional: Denies body ache(s), Denies chills and Reports headache(s) Eyes: Eyes: Denies blurry vision and Denies change in vision ENT: Denies vertigo and Reports headache(s) Cardiovascular: Cardiovascular: Denies chest pain and Denies dyspnea Respiratory: Respiratory: Denies chest congestion, Denies cough and Denies dyspnea Gastrointestinal: Gastrointestinal: Denies abdominal pain, Denies nausea and Denies vomiting Musculoskeletal: Musculoskeletal: Denies back pain Integumentary/Breasts: Skin/Breast: Denies rash and Reports skin pain Neurologic: Denies vertigo and Reports headache(s) Psychiatric: Psychiatric: Denies suicidal ideation [facility] Past Medical History Medical History Cocaine abuse Social History Social History Household Members: Other Household Members Other:: cousin Housing: Apartment Do you presently have visiting nurse or other home services: No Alcohol intake: never Patient Tobacco Use Status: Current everyday Tobacco user Cigarette Packs Per Day: 0.4 Cigarettes Per Day: 8.0 Years Smoked: 15 Smoked in Last 30 Days: No Second Hand Smoke Exposure: No Use of substances other than those prescribed or required for medical reasons: No Advance Directives: No Advance Directives Information Provided: No service: No Current occupational status: employed Physical Exam ED Vital Signs: Vital Signs - 24 hr 07/04/23 11:26 07/04/23 18:00 Temperature 97.8 F 98.2 F Pulse Rate 86 66 Respiratory Rate 16 18 Blood Pressure 128/80 121/74 Pulse Oximetry 96 99 Oxygen Delivery Method Room Air Room Air BMI result Body Mass Index 41.8 Eyes Visual Davis: normal visual davis by confrontation Alignment and Position: alignment normal Periorbital: periorbital findings normal Eyelids: Yes eyelids normal Conjunctivae: conjunctivae normal Sclerae: sclerae normal Corneas: corneas normal Pupils: Equal, round and reactive pupils present and Dilated pupils (Approximately 6 mm) bilaterally EOM: EOMs intact bilaterally Direct Ophthalmoscopy: normal light reflex, no photophobia, no papilledema and fundi normal bilaterally Neuro Cranial nerves: Yes Equal, round and reactive pupils present Course Course Course Narrative: RME performed by Mary Reno PA-C. Patient is a 37 year old assigned female at presenting to the emergency department with feeling like her hands and legs are burning, brain fog, and feeling generally unwell. Patient states that she has been having more panic attacks as well. Detailed physical exam and review of systems are deferred to the soil conservationist. Labs ordered. Patient placed back in the waiting room pending room availability and results. Reevaluation(s) Reevaluation #1: Patient's CT scan shows no acute intracranial pathology. Her exam remains nonfocal. Plan to discharge the patient to follow up with her PCP. Time: 18:50 Medical Decision Making Medical Decision Making [facility] Narrative: 37-year-old female presents for evaluation of headache and ?skin pain. ? she has no rashes denies substance abuse. She has no new medications. Her symptoms are possibly related to stress and anxiety. However she does have dilated pupils bilaterally. Less likely be intracranial mass given that the symptoms are bilateral. However will obtain a CT scan the brain to help rule this out. Differential Diagnosis Differential Diagnoses: The differential diagnosis associated with the presentation includes Anxiety Stress Acute headache Intracranial mass Hyperthyroidism Substance abuse Lab Data [facility] Lab Attestation statement: I reviewed the patient's lab results. No leukocytosis, no anemia. Normal platelet count. No electrolyte abnormalities. TSH within normal limits 07/04/23 12:03 07/04/23 12:03 Labs: Lab Results 07/04/23 07/04/23 07/04/23 Range/Units 11:59 12:03 18:12 WBC 9.8 (4.8-10.8) X10*3/uL RBC 4.54 (4.20-5.50) X10*6/uL Hgb 12.3 (12.0-16.0) g/dl Hct 38.6 (37.0-47.0) % MCV 85.0 (80.0-98.0) fL MCH 27.1 (27.0-33.0) pg MCHC 31.9 (31.0-35.0) g/dl RDW 14.6 (11.0-16.0) % Plt Count 293 D (160-400) X10*3/uL MPV 9.5 (9.4-12.3) fL Immature Gran % (Auto) 0.4 (0.0-0.4) % Neut % (Auto) 64.7 (45-73) % Lymph % (Auto) 27.4 (20-40) % [place] % (Auto) 5.1 (2-11) % Eos % (Auto) 2.1 (0-4) % Baso % (Auto) 0.3 (0-2) % Lymph # (Auto) 2.7 (1.2-4.9) X10*3/uL [place] # (Auto) 0.5 (0.1-1.2) X10*3/uL Eos # (Auto) 0.2 (0.0-0.4) X10*3/uL Baso # (Auto) 0.0 (0.0-0.2) X10*3/uL Abs Immat Gran (auto) 0.04 H (0.00-0.03) X10*3/uL Absolute Neuts (auto) 6.4 (2.0-8.3) x10*3/uL Absolute Nucleated RBC 0.000 (0.0-0.012) X10*3/uL Nucleated RBC % (auto) 0.0 (0.0-0.2) /100WBC Sodium 139 (135-145) mmol/L Potassium 4.0 (3.3-5.1) mmol/L Chloride 105 (96-108) mmol/L Carbon Dioxide 27 (22-29) mmol/L Anion Gap 11 L (12-20) BUN 10 (9-16) mg/dL Creatinine 0.70 (0.5-1.4) mg/dL Estim Creat Clear Calc 161.2 Estimated GFR > 60 Random Glucose 115 (60-115) mg/dL Calcium 9.4 D (8.4-10.2) mg/dL Magnesium 2.0 (1.6-2.6) mg/dL Total Bilirubin 0.4 (0.0-1.0) mg/dL AST 16 (5-31) U/L ALT 13 (0-31) U/L Alkaline Phosphatase 88 (39-117) U/L Total Protein 7.6 (6.5-8.0) g/dL Albumin 4.1 (3.5-5.0) g/dL TSH 2.25 (0.32-4.0) uIU/mL Beta HCG, Quant < 2 mIU/mL Urine Color Yellow Urine Appearance Cloudy Urine pH 5.5 (5.0-9.0) Ur Specific [place] >= 1.030 H (1.005-1.025) Urine Protein Trace (Neg-Trace) mg/dL Urine Glucose (UA) Negative (Negative) mg/dL Urine Ketones Trace (Negative) mg/dL Urine Blood Negative (Negative) Urine Nitrite Negative (Negative) Ur Leukocyte Esterase Negative (Negative) Influenza Type A (PCR) NEGATIVE (Negative) Influenza Type B (PCR) NEGATIVE (Negative) RSV RNA Qual (PCR) NEGATIVE (Negative) SARS-CoV-2 RNA (RT-PCR) NEGATIVE (Negative) Discharge Plan Discharge Clinical Impression: Headache Patient Disposition: Home, Self-Care Instructions: Acute Headache (ED) Additional Instructions: Your workup in the ER today was reassuring. This includes your CT scan, blood work You may use ibuprofen/Tylenol for any further headaches Follow-up with your primary doctor Return for new or worsening symptoms Prescriptions: No Action metronidazole in NaCl (iso-os) 500 mg/100 mL Piggyback 500 mg IV Q12H Qty: 300 0RF doxycycline hyclate [Doxy-100] 100 mg Recon Soln 100 mg IV Q12H Qty: 20 0RF oxycodone 5 mg Tablet 10 mg PO Q4H PRN (Reason: Pain, Moderate (Pain Scale 4-6) Qty: 30 0RF Rx Instructions: Partial Fill upon patient request. hydromorphone 0.5 mg/0.5 mL Syringe 0.5 mg IVPUSH Q4H PRN (Reason: Pain, Severe (Pain Scale 7-10)) Qty: 10 0RF Protocol: Hold for RR < HOLD and contact provider for RR < (bpm): 12 Rx Instructions: Partial Fill upon patient request. Zosyn in dextrose (iso-osm) 3.375 gram/50 mL piggyback 3.375 g IV Q6H Qty: 1200 0RF amoxicillin 875 mg tablet 875 mg PO TID 7 Days Qty: 21 0RF oxycodone 5 mg tablet 5 mg PO Q8H PRN (Reason: pain) Qty: 6 0RF Rx Instructions: Partial Fill upon patient request. amoxicillin-pot clavulanate 875-125 mg tablet 1 tab PO BID 7 Days Qty: 13 0RF ibuprofen 600 mg tablet 600 mg PO Q6H PRN (Reason: fever or pain) Qty: 30 0RF acetaminophen [Tylenol Extra Strength] 500 mg tablet 1,000 mg PO Q6H PRN (Reason: pain) Qty: 30 0RF amoxicillin-pot clavulanate 875-125 mg tablet 1 tab PO Q12H 7 Days Qty: 14 0RF oxycodone 5 mg tablet 5 mg PO Q8H PRN (Reason: pain (scale score 7-10)) Qty: 6 0RF Rx Instructions: Partial Fill upon patient request. amoxicillin-pot clavulanate 875-125 mg tablet 1 tab PO BID Qty: 20 0RF Print Language: Senegalese
[2023-07-04 12:08] LABS: MANUAL DIFF FLAG NO
[2023-07-04 12:12] LABS: Basophils Percent Auto 0.3 % (0-2); Eosinophils Absolute Auto 0.2 X10*3/uL (0.0-0.4); Eosinophils Percent Auto 2.1 % (0-4); Hematocrit 38.6 % (37.0-47.0); Hemoglobin 12.3 g/dl (12.0-16.0); Imm Gran Abs Auto 0.04 X10*3/uL (0.00-0.03); Imm Gran Pct Auto 0.4 % (0.0-0.4); Lymphocytes Absolute Auto 2.7 X10*3/uL (1.2-4.9); Lymphocytes Percent Auto 27.4 % (20-40); Mean Corpuscular HGB Conc 31.9 g/dl (31.0-35.0); Mean Corpuscular Hemoglobin 27.1 pg (27.0-33.0); Mean Platelet Volume 9.5 fL (9.4-12.3); Monocytes Absolute Auto 0.5 X10*3/uL (0.1-1.2); Monocytes Percent Auto 5.1 % (2-11); Neutrophils Absolute Auto 6.4 x10*3/uL (2.0-8.3); Neutrophils Percent Auto 64.7 % (45-73); Platelet Count 293 X10*3/uL (160-400); Red Blood Count 4.54 X10*6/uL (4.20-5.50); Red Cell Distribution Width 14.6 % (11.0-16.0); White Blood Count 9.8 X10*3/uL (4.8-10.8)
[2023-07-04 12:38] LABS: HCG Quantitative < 2 mIU/mL
[2023-07-04 12:40] LABS: Alanine Aminotransferase 13 U/L (0-31); Albumin Level 4.1 g/dL (3.5-5.0); Alkaline Phosphatase 88 U/L (39-117); Anion Gap 11 (12-20); Aspartate Amino Transferase 16 U/L (5-31); Bilirubin Total 0.4 mg/dL (0.0-1.0); Blood Urea Nitrogen 10 mg/dL (9-16); Calcium 9.4 mg/dL (8.4-10.2); Carbon Dioxide 27 mmol/L (22-29); Chloride 105 mmol/L (96-108); Creatinine Clr Calc Pharmacy 161.2; Estimated Glomerular Filt Rate > 60; Glucose Random 115 mg/dL (60-115); Sodium 139 mmol/L (135-145); Total Protein 7.6 g/dL (6.5-8.0)
[2023-07-04 12:51] LABS: TSH reflex Free T4 2.25 uIU/mL (0.32-4.0)
[2023-07-04 12:52] LABS: Influenza A PCR NEGATIVE (Negative); Influenza B PCR NEGATIVE (Negative); Resp Syncy Virus RNA Qual PCR NEGATIVE (Negative); SARS COV2 PCR INHOUSE NEGATIVE (Negative)
[2023-07-04 18:00] VITALS: BP 121/74; PULSE 66; RESP 18; TEMP 36.8; O2SAT 99
[2023-07-04 18:18] LABS: Appearance Urine Cloudy; Color Urine Yellow; Glucose Urine UA Negative (Negative); Leukocyte Esterase Urine Negative (Negative); Nitrite Urine Negative (Negative); PH 5.5 (5.0-9.0); Specific Gravity - Urine >= 1.030 (1.005-1.025); Urine Blood Negative (Negative); Urine Ketones Trace mg/dL (Negative); Urine Protein Trace mg/dL (Neg-Trace)
[2023-07-04 19:14] VITALS: BP 121/74; PULSE 66; RESP 18; TEMP 36.8; O2SAT 99
== END 2023-07-04 19:15 | disposition home or self-care (01) ==
PROVIDERS: Physician Assistant Medical; Emergency Provider Internal Medicine; PCP Internal Medicine
DX: R51.9 Headache, unspecified (principal); F17.210 Nicotine dependence, cigarettes, uncomplicated; F14.10 Cocaine abuse, uncomplicated; Z11.52 Encounter for screening for COVID-19; Z20.828 Contact with and (suspected) exposure to other viral communicable diseases; Z79.899 Other long term (current) drug therapy
CPT/HCPCS: 0241U; 36415; 70450; 80053; 81003; 83735; 84443; 84702; 85025; 99284

== ENCOUNTER 2023-10-06 19:42 | Emergency (ER) | payer OTHER, SELFPAY ==
[2023-10-06 20:39] VITALS: BP 134/79; PULSE 94; RESP 18; TEMP 36.9; O2SAT 98; BMI 45.9
--- NOTE | 2023-10-06 20:52 | ED_ITS ---
HPI - General Adult General Chief complaint: General Medical Stated complaint: lump on throat Time Seen by Provider: 10/06/23 21:14 Source: patient Mode of arrival: ambulatory Limitations: no limitations History of Present Illness ED Provider: MERYL SMITH narrative: 38 yo female with PMH of PID and TOA, anemia tonight squeezed a large cystic acne nodule on R cheek right after noticed swelling under her chin - no new exposure no difficulty talking or swallowing. This has never happened before. No swelling in the mouth. MD complaint: swollen area Onset (ago): hour(s) (2) Location: face (under chin) Radiation: non-radiation Severity: mild Relieving factors: none Exacerbating factors: none Associated symptoms: denies other symptoms Treatments prior to arrival: none Related Data Previous Rx's ?Medication ?Instructions ?Recorded doxycycline hyclate 100 mg 100 mg IV Q12H #20 ea 02/03/22 intravenous powder for solution (Doxy-100) hydromorphone 0.5 mg/0.5 mL 0.5 mg IVPUSH Q4H PRN Pain, Severe 02/03/22 injection syringe (Pain Scale 7-10) #10 mL metronidazole 500 mg/100 mL in 500 mg IV Q12H #300 mL 02/03/22 sodium chlor(iso) intravenous piggyback oxycodone 5 mg tablet 10 mg (2 x 5 mg) PO Q4H PRN Pain, 02/03/22 Moderate (Pain Scale 4-6 #30 tabs piperacillin-tazobactam 3.375 3.375 g (56.25 mL) IV Q6H #1,200 mL 02/03/22 gram/50 mL dextrose(iso-os) IV piggyback (Zosyn) amoxicillin 875 mg tablet 875 mg PO TID 7 days #21 tabs 11/27/22 oxycodone 5 mg tablet 5 mg PO Q8H PRN pain #6 tabs 11/27/22 acetaminophen 500 mg tablet 1,000 mg (2 x 500 mg) PO Q6H PRN 05/06/23 (Tylenol Extra Strength) pain #30 tabs amoxicillin 875 mg-potassium 1 tab PO BID 7 days #13 tabs 05/06/23 clavulanate 125 mg tablet ibuprofen 600 mg tablet 600 mg PO Q6H PRN fever or pain 05/06/23 #30 tabs amoxicillin 875 mg-potassium 1 tab PO Q12H 7 days #14 tabs 06/17/23 clavulanate 125 mg tablet oxycodone 5 mg tablet 5 mg PO Q8H PRN pain (scale score 06/17/23 7-10) #6 tabs amoxicillin 875 mg-potassium 1 tab PO BID #20 tabs 06/26/23 clavulanate 125 mg tablet amoxicillin 875 mg-potassium 1 tab PO BID #13 tabs 10/06/23 clavulanate 125 mg tablet Allergies Allergy/AdvReac Type Severity Reaction Status Date / Time strawberry [STRAWBERRY] Allergy Mild ITCHING Verified 10/06/23 20:47 Review of Systems Review of Systems: Constitutional : No Fever, No Chills, No Fatigue ENT/Mouth : No sore throat, No Rhinorrhea Eyes: No Eye Pain, No Swelling, No Redness Cardiovascular : No Chest Pain, No SOB, No Dyspnea on Exertion Respiratory : No Cough, No Sputum Gastrointestinal : No Nausea, No Vomiting, No Diarrhea, No abdominal Pain Genitourinary : No Dysuria, No Urinary Frequency, No Hematuria, Musculoskeletal : No joint pain, No Myalgias, No Joint Swelling Skin : No Skin Lesions, No rash Neuro : No Weakness, No Numbness, No Dizziness, no Headache Psych : No Anxiety/Panic, No Depression Heme/Lymph: No Bruising, No Bleeding, pos Lymphadenopathy All other systems reviewed and are negative [facility] Past Medical History Attestation statement: The following information was validated with the patient. Source: old records reviewed Medical History Cocaine abuse Social History Social History Household Members: Other Household Members Other:: cousin Housing: Apartment Do you presently have visiting nurse or other home services: No Alcohol intake: never Patient Tobacco Use Status: Current everyday Tobacco user Cigarette Packs Per Day: 0.4 Cigarettes Per Day: 8.0 Years Smoked: 15 Second Hand Smoke Exposure: No Advance Directives: No Advance Directives Information Provided: No service: No Current occupational status: employed Physical Exam ED Vital Signs: Vital Signs - 24 hr 10/06/23 20:39 10/06/23 21:19 10/06/23 23:02 Temperature 98.4 F 98.6 F 98.6 F Pulse Rate 94 87 87 Respiratory Rate 18 14 14 Blood Pressure 134/79 135/84 135/84 Pulse Oximetry 98 97 97 Oxygen Delivery Method Room Air Room Air Room Air BMI result Body Mass Index 45.9 Appearance: Alert. Oriented X3. No acute distress. Eyes: Pupils equal, round and reactive to light. ENT: Pharynx normal. no intraoral swelling, stridor, change in voice or drooling, R lower cheek large cystic acne nodule no surrounding cellulitis Neck: soft submental lymph node noted moderate swelling CVS: Normal heart rate and rhythm. Pulses normal. Respiratory: No respiratory distress. Breath sounds normal. Abdomen: Soft and nontender. Skin: Skin warm and dry. Normal skin color. Normal skin turgor. Extremities: No lower extremity edema. No calf ttp Neuro: Oriented X 3. No motor deficit. No sensory deficit. Course Course Course Narrative: This is an RME: Additional HPI, ROS, PE not included below will be deferred to primary provider. RME assessment and note performed by: Modesta Welch PA-C This is a 38-year-old female who presents emergency department with complaints of swelling underneath her chin which started today. Reporting that she has appointments to have several teeth removed, and also noticed a pimple on the right side of her face which she attempted to squeeze. Plan: Further ER evaluation needed Reevaluation(s) Reevaluation #1: patient feels much better no progression stable for DC Medications Administered Discontinued Medications Generic Name Dose Route Start Last Admin Trade Name Freq PRN Reason Stop Dose Admin Amoxicillin/Clavulanate Potassium 875 mg 10/06/23 22:29 10/06/23 22:57 Amoxicillin/Potassium Clav 875 Mg Tablet PO 10/06/23 22:30 875 mg ONCE ONE Administration Famotidine 20 mg 10/06/23 21:24 10/06/23 21:55 Famotidine/Pf 20 Mg/2 Ml Vial IVPUSH 10/06/23 21:25 20 mg ONCE ONE Administration Ketorolac Tromethamine 15 mg 10/06/23 21:24 10/06/23 21:55 Ketorolac Tromethamine 15 Mg/Ml Vial IVPUSH 10/06/23 21:25 15 mg ONCE ONE Administration Methylprednisolone Sodium Succinate 60 mg 10/06/23 21:24 10/06/23 21:55 Methylprednisolone Sod Succ 125 Mg/2 Ml Vial IVPUSH 10/06/23 21:25 60 mg ONCE ONE Administration Medical Decision Making Medical Decision Making MDM Narrative: 38 yo female with PMH of PID and TOA, anemia here with c/o swelling under the chin that occurred right after squeezing pimple on R cheek she has no oral swelling or respiratory issues suspect lymphadenopathy issue post squeezing pimple - IV steroids, toradol and will monitor given localized lymphadenitis will treat with antibiotics Differential Diagnosis Differential Diagnoses: The differential diagnosis associated with the presentation includes lymphadenopathy, allergic reaction Admission/Observation Consideration of admission/observation: Escalation of care including admission/observation considered improved stable for DC External Record Review External record reviewed: Inpatient record Prescription Management I considered prescription management with: Antibiotic and Other Discharge Plan Discharge Clinical Impression: Acute lymphadenitis Patient Disposition: Home, Self-Care Instructions: Adenitis (ED) Additional Instructions: return for worsening swelling, difficulty breathing, or any other concerns finish the antibiotics do not squeeze your pimple right now On amoxicillin-clavulanate, softer bowel movements are to be expected. Call your provider if you move your bowels more than 4 times a day, your bowel movements are almost all liquid, or you get a rash.? Prescriptions: New amoxicillin-pot clavulanate 875-125 mg tablet 1 tab PO BID Qty: 13 0RF No Action metronidazole in NaCl (iso-os) 500 mg/100 mL Piggyback 500 mg IV Q12H Qty: 300 0RF doxycycline hyclate [Doxy-100] 100 mg Recon Soln 100 mg IV Q12H Qty: 20 0RF oxycodone 5 mg Tablet 10 mg PO Q4H PRN (Reason: Pain, Moderate (Pain Scale 4-6) Qty: 30 0RF Rx Instructions: Partial Fill upon patient request. hydromorphone 0.5 mg/0.5 mL Syringe 0.5 mg IVPUSH Q4H PRN (Reason: Pain, Severe (Pain Scale 7-10)) Qty: 10 0RF Protocol: Hold for RR < HOLD and contact provider for RR < (bpm): 12 Rx Instructions: Partial Fill upon patient request. Zosyn in dextrose (iso-osm) 3.375 gram/50 mL piggyback 3.375 g IV Q6H Qty: 1200 0RF amoxicillin 875 mg tablet 875 mg PO TID 7 Days Qty: 21 0RF oxycodone 5 mg tablet 5 mg PO Q8H PRN (Reason: pain) Qty: 6 0RF Rx Instructions: Partial Fill upon patient request. amoxicillin-pot clavulanate 875-125 mg tablet 1 tab PO BID 7 Days Qty: 13 0RF ibuprofen 600 mg tablet 600 mg PO Q6H PRN (Reason: fever or pain) Qty: 30 0RF acetaminophen [Tylenol Extra Strength] 500 mg tablet 1,000 mg PO Q6H PRN (Reason: pain) Qty: 30 0RF amoxicillin-pot clavulanate 875-125 mg tablet 1 tab PO Q12H 7 Days Qty: 14 0RF oxycodone 5 mg tablet 5 mg PO Q8H PRN (Reason: pain (scale score 7-10)) Qty: 6 0RF Rx Instructions: Partial Fill upon patient request. amoxicillin-pot clavulanate 875-125 mg tablet 1 tab PO BID Qty: 20 0RF Stand Alone Forms: Work/School Release Interventions: ED Discharge Assessment Last Done: 10/06/23 23:02 Discharge Date/Time: 10/06/23 23:02 Print Language: Lithuanian
[2023-10-06 21:19] VITALS: BP 135/84; PULSE 87; RESP 14; TEMP 37; O2SAT 97
[2023-10-06] MEDS: Famotidine/PF 20 MG/2 ML VIAL IVPUSH (21:55)
[2023-10-06] MEDS: methylPREDNISolone Sod Succ 125 MG/2 ML VIAL 60 MG IVPUSH (21:55)
[2023-10-06] MEDS: Ketorolac Tromethamine 15 MG/ML VIAL IVPUSH (21:55)
[2023-10-06] MEDS: Amoxicillin/Potassium Clav 875 MG TABLET PO (22:57)
[2023-10-06 23:02] VITALS: BP 135/84; PULSE 87; RESP 14; TEMP 37; O2SAT 97
== END 2023-10-06 23:02 | disposition home or self-care (01) ==
PROVIDERS: Emergency Provider Emergency Medicine
DX: L04.9 Acute lymphadenitis, unspecified (principal); R22.1 Localized swelling, mass and lump, neck
CPT/HCPCS: 96374; 96375; 99283; 99284; J1885; J2919

== ENCOUNTER 2023-10-25 14:13 | Emergency (ER) | payer OTHER, SELFPAY ==
--- NOTE | ~2023-10-25 | XR_ITS ---
EXAMINATION: XR CHEST CLINICAL INFORMATION: Dyspnea COMPARISON: None available. TECHNIQUE: 2 views of the chest were obtained. FINDINGS: Lungs are well-inflated and clear. Trachea is midline in position. No interstitial disease, consolidation or mass. No pleural effusion or pneumothorax. Cardiac silhouette and pulmonary vessels are normal in size. The mediastinum and bel have normal contour. The visualized bones and upper abdomen are unremarkable. XR/XR chest 2V IMPRESSION: Lungs have a normal appearance. No acute cardiopulmonary abnormality.
[2023-10-25 14:16] VITALS: BP 142/78; PULSE 86; RESP 18; TEMP 36.8; O2SAT 98; BMI 46.7
--- NOTE | 2023-10-25 14:24 | ED_ITS ---
HPI - SOB/Dyspnea General Chief Complaint: Dyspnea Stated Complaint: diff breathing Time Seen by Provider: 10/25/23 14:28 Source: patient and RN notes reviewed Mode of arrival: ambulatory Limitations: no limitations History of Present Illness ED Provider: Modesta Welch PA-C HPI Narrative: This is a 38-year-old female, with a history of iron deficiency anemia, who presents emergency department with complaints of shortness for breath. Patient states that her son is currently sick with a cold and patient believes that she is starting to get the same illness. She states that she took DayQuil prior to taking a nap this afternoon. Patient states that when she lies down she felt she could not get a deep breath in. She states that she started to feel increased anxiety. She states that she is unable to fully get a deep breath in. She denies any chest pain. She denies any fevers, chills, body aches, palpitations, chest pain, abdominal pain, nausea, vomiting or diarrhea. Patient states that she feels as though that this was a panic attack. She is not on control, denies any recent travel, surgeries, hospitalizations. No history of blood clots. She also reports that she is having dental pain, states that this has been occurring for the last several days. She has issues with her front teeth and states that in 2 weeks she will be getting them removed. No other complaints or concerns at this time. MD elicited complaint: shortness of breath Exacerbating factors: nothing Relieving factors: nothing Associated symptoms: denies other symptoms Treatment prior to arrival: none Related Data Previous Rx's ?Medication ?Instructions ?Recorded doxycycline hyclate 100 mg 100 mg IV Q12H #20 ea 02/03/22 intravenous powder for solution (Doxy-100) hydromorphone 0.5 mg/0.5 mL 0.5 mg IVPUSH Q4H PRN Pain, Severe 02/03/22 injection syringe (Pain Scale 7-10) #10 mL metronidazole 500 mg/100 mL in 500 mg IV Q12H #300 mL 02/03/22 sodium chlor(iso) intravenous piggyback oxycodone 5 mg tablet 10 mg (2 x 5 mg) PO Q4H PRN Pain, 02/03/22 Moderate (Pain Scale 4-6 #30 tabs piperacillin-tazobactam 3.375 3.375 g (56.25 mL) IV Q6H #1,200 mL 02/03/22 gram/50 mL dextrose(iso-os) IV piggyback (Zosyn) amoxicillin 875 mg tablet 875 mg PO TID 7 days #21 tabs 11/27/22 oxycodone 5 mg tablet 5 mg PO Q8H PRN pain #6 tabs 11/27/22 acetaminophen 500 mg tablet 1,000 mg (2 x 500 mg) PO Q6H PRN 05/06/23 (Tylenol Extra Strength) pain #30 tabs amoxicillin 875 mg-potassium 1 tab PO BID 7 days #13 tabs 05/06/23 clavulanate 125 mg tablet ibuprofen 600 mg tablet 600 mg PO Q6H PRN fever or pain 05/06/23 #30 tabs amoxicillin 875 mg-potassium 1 tab PO Q12H 7 days #14 tabs 06/17/23 clavulanate 125 mg tablet oxycodone 5 mg tablet 5 mg PO Q8H PRN pain (scale score 06/17/23 7-10) #6 tabs amoxicillin 875 mg-potassium 1 tab PO BID #20 tabs 06/26/23 clavulanate 125 mg tablet amoxicillin 875 mg-potassium 1 tab PO BID #13 tabs 10/06/23 clavulanate 125 mg tablet acetaminophen 500 mg tablet 1,000 mg (2 x 500 mg) PO Q6H PRN 10/25/23 (Tylenol Extra Strength) pain #30 tabs amoxicillin 875 mg-potassium 1 tab PO BID 7 days #14 tabs 10/25/23 clavulanate 125 mg tablet ibuprofen 600 mg tablet 600 mg PO Q6H PRN pain #30 tabs 10/25/23 Allergies Allergy/AdvReac Type Severity Reaction Status Date / Time strawberry [STRAWBERRY] Allergy Mild ITCHING Verified 10/25/23 14:21 Review of Systems 2 Review of Systems: Yes all other systems are reviewed and are negative Constitutional: Constitutional: Reports as per [facility] Past Medical History Attestation statement: The following information was validated with the patient. Medical History Cocaine abuse Social History Social History Household Members: Other Household Members Other:: cousin Housing: Apartment Do you presently have visiting nurse or other home services: No Alcohol intake: never Patient Tobacco Use Status: Current everyday Tobacco user Cigarette Packs Per Day: 0.4 Cigarettes Per Day: 8.0 Years Smoked: 15 Second Hand Smoke Exposure: No Advance Directives: No Advance Directives Information Provided: No Do you have a plan to hurt others: No Plan service: No Current occupational status: employed Physical Exam 2 Vital Signs: Vital Signs: Last Vital Signs Temp 98.2 F 10/25/23 18:19 Pulse 74 10/25/23 18:19 Resp 20 10/25/23 18:19 BP 138/93 H 10/25/23 18:19 Pulse Ox 98 10/25/23 18:19 O2 Del Method Room Air 10/25/23 18:19 BMI result Body Mass Index 46.7 Const: General: cooperative, comfortable and no acute distress O rientation/consciousness: patient oriented x3 Limitations: no limitations HEENT: Head: Yes normal to inspection, Yes normocephalic and Yes atraumatic Ears: hearing grossly normal bilaterally General nose exam: Normal external nose present Face and sinus: Yes normal facial exam Mouth: Normal oral and palatal mucosa present, oropharynx normal and moist mucous membranes Teeth image: 1. Teeth 7 through 10, in poor repair. No surrounding gingival erythema, edema or fluctuance. Throat: Yes posterior oropharynx normal Eyes: General: appearance normal, both eyes and all related structures E yelids: Yes eyelids normal Conjunctivae: conjunctivae normal Sclerae: s clerae normal Pupils: Equal, round and reactive pupils present EOM: EOMs intact bilaterally Neck: Neck: Yes normal visual inspection, Yes full ROM and Yes no lymphadenopathy Lymphatic: no lymphadenopathy noted Chest: Chest palpation & inspection: normal inspection of the chest Resp: Effort & Inspection: normal respiratory effort and able to speak in complete sentences Auscultation: clear to auscultation bilaterally, no crackles, no rales, no rhonchi and no wheezes Cardio: Rate: regular rate Rhythm: regular rhythm Heart sounds: S1 normal heart sound present and S2 normal heart sound present GI: Inspection: Yes normal to inspection Skin: General skin exam: no rashes or lesions noted Trauma: no lacerations or abrasions Wounds: no wounds Neuro: General: patient oriented x3 and moves all extremities Cranial nerves: Yes Equal, round and reactive pupils present Extrem: General: Yes normal to inspection Right upper extremity: normal to inspection Left upper extremity: normal to inspection Right lower extremity: normal to inspection Left lower extremity: normal to inspection Course Course Course Narrative: This is a rapid medical exam. Defer additional HPI, ROS, PE to primary provider. Patient here with upper respiratory symptoms. Will obtain chest x- ray, viral testing -Lesia Wall APRN Medical Decision Making Medical Decision Making [facility] Narrative: this is a 38-year-old female who presents emergency department with complaints of acute episode of shortness of breath upon wakening from a nap this afternoon. On arrival, oxygen saturation 98% on room air. She is speaking in full sentences under no acute distress. Lungs are clear to auscultation bilaterally. Viral swabs obtained, negative for COVID, flu, RSV. EKG normal sinus rhythm, chest x-ray unremarkable. Labs were obtained as she has a history of iron- deficiency anemia, and low H&H. Her labs today reveal no leukocytosis, stable H&H. She has no chest pain. Her symptoms have resolved upon being in the emergency room today she is feeling much better and believes that this was a panic attack. Discussed strict return precautions. She understands and agrees with plan. She does have dental pain without any dental abscess, discharged on Augmentin follow-up with her dentist in 2 weeks. Patient stable for discharge. Differential Diagnosis Differential Diagnoses: The differential diagnosis associated with the presentation includes Anxiety, pneumonia, RSV, COVID, flu, arrhythmia, electrolyte derangement, anemia Admission/Observation Consideration of admission/observation: Escalation of care including admission/observation considered Lab Data [facility] Lab Attestation statement: I reviewed the patient's lab results. See [facility] 10/25/23 16:36 10/25/23 16:36 Labs: Lab Results 10/25/23 10/25/23 10/25/23 Range/Units 14:26 16:36 Unknown WBC 8.1 (4.8-10.8) X10*3/uL RBC 4.34 (4.20-5.50) X10*6/uL Hgb 12.0 (12.0-16.0) g/dl Hct 36.9 L (37.0-47.0) % MCV 85.0 (80.0-98.0) fL MCH 27.6 (27.0-33.0) pg MCHC 32.5 (31.0-35.0) g/dl RDW 14.3 (11.0-16.0) % Plt Count 246 (160-400) X10*3/uL MPV 9.1 L (9.4-12.3) fL Immature Gran % (Auto) 0.4 (0.0-0.4) % Neut % (Auto) 75.4 H (45-73) % Lymph % (Auto) 16.3 L (20-40) % [place] % (Auto) 4.8 (2-11) % Eos % (Auto) 2.7 (0-4) % Baso % (Auto) 0.4 (0-2) % Lymph # (Auto) 1.3 (1.2-4.9) X10*3/uL [place] # (Auto) 0.4 (0.1-1.2) X10*3/uL Eos # (Auto) 0.2 (0.0-0.4) X10*3/uL Baso # (Auto) 0.0 (0.0-0.2) X10*3/uL Abs Immat Gran (auto) 0.03 (0.00-0.03) X10*3/uL Absolute Neuts (auto) 6.1 (2.0-8.3) x10*3/uL Absolute Nucleated RBC 0.000 (0.0-0.012) X10*3/uL Nucleated RBC % (auto) 0.0 (0.0-0.2) /100WBC PT 10.5 L (11.1-13.3) SEC INR 0.9 (0.9-1.1) Sodium 140 (135-145) mmol/L Potassium 4.1 (3.3-5.1) mmol/L Chloride 105 (96-108) mmol/L Carbon Dioxide 24 (22-29) mmol/L Anion Gap 15 (12-20) BUN 9 (9-16) mg/dL Creatinine 0.65 (0.5-1.4) mg/dL Estim Creat Clear Calc 183.5 Estimated GFR > 60 Random Glucose 95 (60-115) mg/dL Calcium 9.5 (8.4-10.2) mg/dL Magnesium 1.9 (1.6-2.6) mg/dL Total Bilirubin 0.3 (0.0-1.0) mg/dL Direct Bilirubin 0.1 (0.0-0.5) mg/dL AST 20 (5-31) U/L ALT 16 (0-31) U/L Alkaline Phosphatase 86 (39-117) U/L Troponin I High Sens 5.0 (<3.5-17.0) ng/L B-Natriuretic Peptide 16 (<100) pg/mL Total Protein 7.3 (6.5-8.0) g/dL Albumin 4.2 (3.5-5.0) g/dL Urine Test NEGATIVE (NEGATIVE) Influenza Type A (PCR) NEGATIVE (Negative) Influenza Type B (PCR) NEGATIVE (Negative) RSV RNA Qual (PCR) NEGATIVE (Negative) SARS-CoV-2 RNA (RT-PCR) NEGATIVE (Negative) Independent Interpretation I performed an independent interpretation of an: EKG Interpretation: EKG normal sinus rhythm at a ventricular rate of 81 beats per minute, NM interval 206, QT QTC 388/450, no ST elevation or depression Radiology Impression Discussion of test interpretation with radiology: I have reviewed the radiologist's reading. Radiologist Impression: EXAMINATION: XR CHEST CLINICAL INFORMATION: Dyspnea COMPARISON: None available. TECHNIQUE: 2 views of the chest were obtained. FINDINGS: Lungs are well-inflated and clear. Trachea is midline in position. No interstitial disease, consolidation or mass. No pleural effusion or pneumothorax. Cardiac silhouette and pulmonary vessels are normal in size. The mediastinum and bel have normal contour. The visualized bones and upper abdomen are unremarkable. XR/XR chest 2V IMPRESSION: Lungs have a normal appearance. No acute cardiopulmonary abnormality. Dictated By: Rasheed Gunn MD Signed By: <Electronically signed by Rasheed Gunn MD in OV> Discharge Plan Discharge Clinical Impression: Shortness of breath, Pain, dental Patient Disposition: Home, Self-Care Instructions: Shortness of Breath (ED) Additional Instructions: You were seen in the emergency department due to shortness for breath. Your workup today was reassuring. Please rest, drink plenty of fluids get plenty of rest. Alternate between ibuprofen and Tylenol as needed for pain and symptoms. Take prescribed antibiotic as directed. Finish the entire course even if your symptoms improve. If any new or worsening symptoms occur including but not limited to fevers, chills, worsening shortness breath, chest pain, please return for re-evaluation. Prescriptions: New amoxicillin-pot clavulanate 875-125 mg tablet 1 tab PO BID 7 Days Qty: 14 0RF ibuprofen 600 mg tablet 600 mg PO Q6H PRN (Reason: pain) Qty: 30 0RF acetaminophen [Tylenol Extra Strength] 500 mg tablet 1,000 mg PO Q6H PRN (Reason: pain) Qty: 30 0RF No Action metronidazole in NaCl (iso-os) 500 mg/100 mL Piggyback 500 mg IV Q12H Qty: 300 0RF doxycycline hyclate [Doxy-100] 100 mg Recon Soln 100 mg IV Q12H Qty: 20 0RF oxycodone 5 mg Tablet 10 mg PO Q4H PRN (Reason: Pain, Moderate (Pain Scale 4-6) Qty: 30 0RF Rx Instructions: Partial Fill upon patient request. hydromorphone 0.5 mg/0.5 mL Syringe 0.5 mg IVPUSH Q4H PRN (Reason: Pain, Severe (Pain Scale 7-10)) Qty: 10 0RF Protocol: Hold for RR < HOLD and contact provider for RR < (bpm): 12 Rx Instructions: Partial Fill upon patient request. Zosyn in dextrose (iso-osm) 3.375 gram/50 mL piggyback 3.375 g IV Q6H Qty: 1200 0RF amoxicillin 875 mg tablet 875 mg PO TID 7 Days Qty: 21 0RF oxycodone 5 mg tablet 5 mg PO Q8H PRN (Reason: pain) Qty: 6 0RF Rx Instructions: Partial Fill upon patient request. amoxicillin-pot clavulanate 875-125 mg tablet 1 tab PO BID 7 Days Qty: 13 0RF ibuprofen 600 mg tablet 600 mg PO Q6H PRN (Reason: fever or pain) Qty: 30 0RF acetaminophen [Tylenol Extra Strength] 500 mg tablet 1,000 mg PO Q6H PRN (Reason: pain) Qty: 30 0RF amoxicillin-pot clavulanate 875-125 mg tablet 1 tab PO Q12H 7 Days Qty: 14 0RF oxycodone 5 mg tablet 5 mg PO Q8H PRN (Reason: pain (scale score 7-10)) Qty: 6 0RF Rx Instructions: Partial Fill upon patient request. amoxicillin-pot clavulanate 875-125 mg tablet 1 tab PO BID Qty: 13 0RF amoxicillin-pot clavulanate 875-125 mg tablet 1 tab PO BID Qty: 20 0RF Interventions: ED Discharge Assessment Last Done: 10/25/23 18:19 Discharge Date/Time: 10/25/23 18:20 Print Language: Citizen [place]
[2023-10-25 14:56] LABS: UPreg QC Valid YES; Urine Pregnancy NEGATIVE (NEGATIVE)
[2023-10-25 15:10] LABS: Influenza A PCR NEGATIVE (Negative); Influenza B PCR NEGATIVE (Negative); Resp Syncy Virus RNA Qual PCR NEGATIVE (Negative); SARS COV2 PCR INHOUSE NEGATIVE (Negative)
--- NOTE | 2023-10-25 16:09 | ECG_ITS ---
Test Reason : sob Blood Pressure : / mmHG Vent. Rate : 081 BPM Atrial Rate : 081 BPM P-R Int : 206 ms QRS Dur : 094 ms QT Int : 388 ms P-R-T Axes : 070 076 038 degrees QTc Int : 450 ms Normal sinus rhythm Normal ECG When compared with ECG of 25-JUN-2023 21:58, No significant change was found Referred By: Modesta Welch Electronically Signed By:ANDREW FAULKNER
[2023-10-25 16:41] VITALS: BP 140/76; PULSE 84; RESP 18; TEMP 36.7; O2SAT 98
[2023-10-25 16:43] LABS: MANUAL DIFF FLAG NO
[2023-10-25 16:45] LABS: Basophils Percent Auto 0.4 % (0-2); Eosinophils Absolute Auto 0.2 X10*3/uL (0.0-0.4); Eosinophils Percent Auto 2.7 % (0-4); Hematocrit 36.9 % (37.0-47.0); Imm Gran Abs Auto 0.03 X10*3/uL (0.00-0.03); Imm Gran Pct Auto 0.4 % (0.0-0.4); Lymphocytes Absolute Auto 1.3 X10*3/uL (1.2-4.9); Lymphocytes Percent Auto 16.3 % (20-40); Mean Corpuscular HGB Conc 32.5 g/dl (31.0-35.0); Mean Corpuscular Hemoglobin 27.6 pg (27.0-33.0); Mean Platelet Volume 9.1 fL (9.4-12.3); Monocytes Absolute Auto 0.4 X10*3/uL (0.1-1.2); Monocytes Percent Auto 4.8 % (2-11); Neutrophils Absolute Auto 6.1 x10*3/uL (2.0-8.3); Neutrophils Percent Auto 75.4 % (45-73); Platelet Count 246 X10*3/uL (160-400); Red Blood Count 4.34 X10*6/uL (4.20-5.50); Red Cell Distribution Width 14.3 % (11.0-16.0); White Blood Count 8.1 X10*3/uL (4.8-10.8)
[2023-10-25 16:51] LABS: INTERNATIONAL NORM RATIO 0.9 (0.9-1.1); Prothrombin Time 10.5 SEC (11.1-13.3)
[2023-10-25 17:06] LABS: Alanine Aminotransferase 16 U/L (0-31); Albumin Level 4.2 g/dL (3.5-5.0); Alkaline Phosphatase 86 U/L (39-117); Anion Gap 15 (12-20); Aspartate Amino Transferase 20 U/L (5-31); Bilirubin Direct 0.1 mg/dL (0.0-0.5); Bilirubin Total 0.3 mg/dL (0.0-1.0); Blood Urea Nitrogen 9 mg/dL (9-16); Calcium 9.5 mg/dL (8.4-10.2); Carbon Dioxide 24 mmol/L (22-29); Chloride 105 mmol/L (96-108); Creatinine Clr Calc Pharmacy 183.5; Estimated Glomerular Filt Rate > 60; Glucose Random 95 mg/dL (60-115); Magnesium 1.9 mg/dL (1.6-2.6); Potassium 4.1 mmol/L (3.3-5.1); Sodium 140 mmol/L (135-145); Total Protein 7.3 g/dL (6.5-8.0)
[2023-10-25 17:12] LABS: B Type Natriuretic Peptide 16 pg/mL (<100)
[2023-10-25 18:19] VITALS: BP 138/93; PULSE 74; RESP 20; TEMP 36.8; O2SAT 98
== END 2023-10-25 18:20 | disposition home or self-care (01) ==
PROVIDERS: Physician Assistant Medical; Emergency Provider Emergency Medicine
DX: R06.02 Shortness of breath (principal); K08.89 Other specified disorders of teeth and supporting structures; Z03.818 Encounter for observation for suspected exposure to other biological agents ruled out; D50.9 Iron deficiency anemia, unspecified; F14.10 Cocaine abuse, uncomplicated; F17.210 Nicotine dependence, cigarettes, uncomplicated; Z79.899 Other long term (current) drug therapy
CPT/HCPCS: 0241U; 36415; 71046; 80048; 80076; 81025; 83735; 83880; 84484; 85025; 85610; 93005; 99283

== ENCOUNTER 2024-01-20 12:13 | Emergency (ER) | payer OTHER, SELFPAY ==
[2024-01-20 13:09] VITALS: BP 189/77; PULSE 90; RESP 18; TEMP 36.8; O2SAT 97; BMI 48.3
--- NOTE | 2024-01-20 13:10 | ED.GENADULT ---
HPI - General Adult General Chief complaint: Dental/Oral Stated complaint: facial swelling Related Data Previous Rx's ?Medication ?Instructions ?Recorded doxycycline hyclate 100 mg 100 mg IV Q12H #20 ea 02/03/22 intravenous powder for solution (Doxy-100) hydromorphone 0.5 mg/0.5 mL 0.5 mg IVPUSH Q4H PRN Pain, Severe 02/03/22 injection syringe (Pain Scale 7-10) #10 mL metronidazole 500 mg/100 mL in 500 mg IV Q12H #300 mL 02/03/22 sodium chlor(iso) intravenous piggyback oxycodone 5 mg tablet 10 mg (2 x 5 mg) PO Q4H PRN Pain, 02/03/22 Moderate (Pain Scale 4-6 #30 tabs piperacillin-tazobactam 3.375 3.375 g (56.25 mL) IV Q6H #1,200 mL 02/03/22 gram/50 mL dextrose(iso-os) IV piggyback (Zosyn) amoxicillin 875 mg tablet 875 mg PO TID 7 days #21 tabs 11/27/22 oxycodone 5 mg tablet 5 mg PO Q8H PRN pain #6 tabs 11/27/22 acetaminophen 500 mg tablet 1,000 mg (2 x 500 mg) PO Q6H PRN 05/06/23 (Tylenol Extra Strength) pain #30 tabs amoxicillin 875 mg-potassium 1 tab PO BID 7 days #13 tabs 05/06/23 clavulanate 125 mg tablet ibuprofen 600 mg tablet 600 mg PO Q6H PRN fever or pain 05/06/23 #30 tabs amoxicillin 875 mg-potassium 1 tab PO Q12H 7 days #14 tabs 06/17/23 clavulanate 125 mg tablet oxycodone 5 mg tablet 5 mg PO Q8H PRN pain (scale score 06/17/23 7-10) #6 tabs amoxicillin 875 mg-potassium 1 tab PO BID #20 tabs 06/26/23 clavulanate 125 mg tablet amoxicillin 875 mg-potassium 1 tab PO BID #13 tabs 10/06/23 clavulanate 125 mg tablet acetaminophen 500 mg tablet 1,000 mg (2 x 500 mg) PO Q6H PRN 10/25/23 (Tylenol Extra Strength) pain #30 tabs amoxicillin 875 mg-potassium 1 tab PO BID 7 days #14 tabs 10/25/23 clavulanate 125 mg tablet ibuprofen 600 mg tablet 600 mg PO Q6H PRN pain #30 tabs 10/25/23 acetaminophen 500 mg tablet 1,000 mg (2 x 500 mg) PO QID PRN 01/20/24 pain #30 tabs amoxicillin 875 mg-potassium 1 tab PO BID 10 days #20 tabs 01/20/24 clavulanate 125 mg tablet ibuprofen 600 mg tablet 600 mg PO Q6H PRN pain #20 tabs 01/20/24 oxycodone 5 mg tablet 5 mg PO Q6H PRN pain 3 days #10 01/20/24 tabs Allergies Allergy/AdvReac Type Severity Reaction Status Date / Time strawberry [STRAWBERRY] Allergy Mild ITCHING Verified 01/20/24 13:10 [facility] Past Medical History Medical History Cocaine abuse Social History Social History Household Members: Other Household Members Other:: cousin Housing: Apartment Do you presently have visiting nurse or other home services: No Alcohol intake: never Patient Tobacco Use Status: Current everyday Tobacco user Cigarette Packs Per Day: 0.4 Cigarettes Per Day: 8.0 Years Smoked: 15 Smoked in Last 30 Days: Yes Second Hand Smoke Exposure: No Use of substances other than those prescribed or required for medical reasons: No Advance Directives: No Advance Directives Information Provided: No Do you have a plan to hurt others: No Plan Patient : No service: No Current occupational status: employed Physical Exam ED Vital Signs: Vital Signs - 24 hr 01/20/24 13:09 01/20/24 20:03 Temperature 98.2 F 98.2 F Pulse Rate 90 83 Respiratory Rate 18 20 Blood Pressure 189/77 H 143/80 H Pulse Oximetry 97 96 Oxygen Delivery Method Room Air Room Air BMI result Body Mass Index 48.3 Course Course Course Narrative: This is a rapid medical exam performed by Roro Aguilar NP: Additional HPI, ROS, PE not included below will be deferred to primary provider. Patient is a 38-year-old female presenting to the emergency department with complaint of left-sided facial swelling as well as left upper dental pain. States swelling started yesterday and was significantly worse when she woke today. Denies fevers or drainage. Plan: labs, likely CT Patient had no evidence of trismus or systemic disease or pharyngeal abscess, all swelling is left upper face with a likely culprit being the tender decayed tooth with no gum abscess that I can drain so no CT was indicated at this time Patient only had mild discomfort at this point and was given Tylenol Motrin and Augmentin, she does have a dentist to follow up with and she was discharged well-appearing, comfortable, tolerates p.o. Labs were reviewed, elevated ESR and CRP are noted but patient is not septic she has stable vitals and is very well-appearing and will be treated with outpatient antibiotics Medical Decision Making Lab Data MDM Lab Attestation statement: I reviewed the patient's lab results. 01/20/24 17:37 01/20/24 17:37 Labs: Lab Results 01/20/24 Range/Units 17:37 WBC 9.2 (4.8-10.8) X10*3/uL RBC 4.32 (4.20-5.50) X10*6/uL Hgb 12.1 (12.0-16.0) g/dl Hct 37.9 (37.0-47.0) % MCV 87.7 (80.0-98.0) fL MCH 28.0 (27.0-33.0) pg MCHC 31.9 (31.0-35.0) g/dl RDW 13.8 (11.0-16.0) % Plt Count 271 (160-400) X10*3/uL MPV 9.4 (9.4-12.3) fL Immature Gran % (Auto) 1.7 H (0.0-0.4) % Neut % (Auto) 71.9 (45-73) % Lymph % (Auto) 17.6 L (20-40) % [place] % (Auto) 7.2 (2-11) % Eos % (Auto) 1.3 (0-4) % Baso % (Auto) 0.3 (0-2) % Lymph # (Auto) 1.6 (1.2-4.9) X10*3/uL [place] # (Auto) 0.7 (0.1-1.2) X10*3/uL Eos # (Auto) 0.1 (0.0-0.4) X10*3/uL Baso # (Auto) 0.0 (0.0-0.2) X10*3/uL Abs Immat Gran (auto) 0.16 H (0.00-0.03) X10*3/uL Absolute Neuts (auto) 6.6 (2.0-8.3) x10*3/uL Absolute Nucleated RBC 0.000 (0.0-0.012) X10*3/uL Nucleated RBC % (auto) 0.0 (0.0-0.2) /100WBC ESR 23 H (0-20) MM/HR Sodium 138 (135-145) mmol/L Potassium 4.2 (3.3-5.1) mmol/L Chloride 105 (96-108) mmol/L Carbon Dioxide 30 H (22-29) mmol/L Anion Gap 7 L (12-20) BUN 8 L (9-16) mg/dL Creatinine 0.62 (0.5-1.4) mg/dL Estim Creat Clear Calc 196.2 Estimated GFR > 60 Random Glucose 76 (60-115) mg/dL Calcium 9.1 (8.4-10.2) mg/dL Total Bilirubin 0.5 (0.0-1.0) mg/dL AST 33 H (5-31) U/L ALT 22 (0-31) U/L Alkaline Phosphatase 107 (39-117) U/L C-Reactive Protein 3.95 H (< or = 0.50) mg/dL Total Protein 7.6 (6.5-8.0) g/dL Albumin 4.1 (3.5-5.0) g/dL Beta HCG, Quant < 2 mIU/mL Discharge Plan Discharge Clinical Impression: Dental abscess Patient Disposition: Home, Self-Care Additional Instructions: We are treating dental infection with Augmentin antibiotic You will have Motrin Tylenol and Percocet for pain If swelling under the tongue, any difficulty breathing or swallowing, fever, spreading redness pain and swelling in her face return immediately to the ER for further evaluation Follow closely with her dentist as you will most likely need the decayed tooth extracted Prescriptions: New amoxicillin-pot clavulanate 875-125 mg tablet 1 tab PO BID 10 Days Qty: 20 0RF acetaminophen 500 mg tablet 1,000 mg PO QID PRN (Reason: pain) Qty: 30 0RF oxycodone 5 mg tablet 5 mg PO Q6H PRN (Reason: pain) 3 Days Qty: 10 0RF Rx Instructions: Partial Fill upon patient request. ibuprofen 600 mg tablet 600 mg PO Q6H PRN (Reason: pain) Qty: 20 0RF No Action metronidazole in NaCl (iso-os) 500 mg/100 mL Piggyback 500 mg IV Q12H Qty: 300 0RF doxycycline hyclate [Doxy-100] 100 mg Recon Soln 100 mg IV Q12H Qty: 20 0RF oxycodone 5 mg Tablet 10 mg PO Q4H PRN (Reason: Pain, Moderate (Pain Scale 4-6) Qty: 30 0RF Rx Instructions: Partial Fill upon patient request. hydromorphone 0.5 mg/0.5 mL Syringe 0.5 mg IVPUSH Q4H PRN (Reason: Pain, Severe (Pain Scale 7-10)) Qty: 10 0RF Protocol: Hold for RR < HOLD and contact provider for RR < (bpm): 12 Rx Instructions: Partial Fill upon patient request. Zosyn in dextrose (iso-osm) 3.375 gram/50 mL piggyback 3.375 g IV Q6H Qty: 1200 0RF amoxicillin 875 mg tablet 875 mg PO TID 7 Days Qty: 21 0RF oxycodone 5 mg tablet 5 mg PO Q8H PRN (Reason: pain) Qty: 6 0RF Rx Instructions: Partial Fill upon patient request. amoxicillin-pot clavulanate 875-125 mg tablet 1 tab PO BID 7 Days Qty: 13 0RF ibuprofen 600 mg tablet 600 mg PO Q6H PRN (Reason: fever or pain) Qty: 30 0RF acetaminophen [Tylenol Extra Strength] 500 mg tablet 1,000 mg PO Q6H PRN (Reason: pain) Qty: 30 0RF amoxicillin-pot clavulanate 875-125 mg tablet 1 tab PO Q12H 7 Days Qty: 14 0RF oxycodone 5 mg tablet 5 mg PO Q8H PRN (Reason: pain (scale score 7-10)) Qty: 6 0RF Rx Instructions: Partial Fill upon patient request. amoxicillin-pot clavulanate 875-125 mg tablet 1 tab PO BID Qty: 13 0RF amoxicillin-pot clavulanate 875-125 mg tablet 1 tab PO BID 7 Days Qty: 14 0RF ibuprofen 600 mg tablet 600 mg PO Q6H PRN (Reason: pain) Qty: 30 0RF acetaminophen [Tylenol Extra Strength] 500 mg tablet 1,000 mg PO Q6H PRN (Reason: pain) Qty: 30 0RF amoxicillin-pot clavulanate 875-125 mg tablet 1 tab PO BID Qty: 20 0RF Print Language: [place]
[2024-01-20 17:47] LABS: MANUAL DIFF FLAG NO
[2024-01-20 18:00] LABS: Basophils Percent Auto 0.3 % (0-2); Eosinophils Absolute Auto 0.1 X10*3/uL (0.0-0.4); Eosinophils Percent Auto 1.3 % (0-4); Hematocrit 37.9 % (37.0-47.0); Hemoglobin 12.1 g/dl (12.0-16.0); Imm Gran Abs Auto 0.16 X10*3/uL (0.00-0.03); Imm Gran Pct Auto 1.7 % (0.0-0.4); Lymphocytes Absolute Auto 1.6 X10*3/uL (1.2-4.9); Lymphocytes Percent Auto 17.6 % (20-40); Mean Corpuscular HGB Conc 31.9 g/dl (31.0-35.0); Mean Corpuscular Volume 87.7 fL (80.0-98.0); Mean Platelet Volume 9.4 fL (9.4-12.3); Monocytes Absolute Auto 0.7 X10*3/uL (0.1-1.2); Monocytes Percent Auto 7.2 % (2-11); Neutrophils Absolute Auto 6.6 x10*3/uL (2.0-8.3); Neutrophils Percent Auto 71.9 % (45-73); Platelet Count 271 X10*3/uL (160-400); Red Blood Count 4.32 X10*6/uL (4.20-5.50); Red Cell Distribution Width 13.8 % (11.0-16.0); White Blood Count 9.2 X10*3/uL (4.8-10.8)
[2024-01-20 18:08] LABS: Alanine Aminotransferase 22 U/L (0-31); Albumin Level 4.1 g/dL (3.5-5.0); Alkaline Phosphatase 107 U/L (39-117); Anion Gap 7 (12-20); Aspartate Amino Transferase 33 U/L (5-31); Bilirubin Total 0.5 mg/dL (0.0-1.0); Blood Urea Nitrogen 8 mg/dL (9-16); C Reactive Protein 3.95 mg/dL (< or = 0.50); Calcium 9.1 mg/dL (8.4-10.2); Carbon Dioxide 30 mmol/L (22-29); Chloride 105 mmol/L (96-108); Creatinine Clr Calc Pharmacy 196.2; Estimated Glomerular Filt Rate > 60; Glucose Random 76 mg/dL (60-115); Potassium 4.2 mmol/L (3.3-5.1); Sodium 138 mmol/L (135-145); Total Protein 7.6 g/dL (6.5-8.0)
[2024-01-20 18:10] LABS: HCG Quantitative < 2 mIU/mL
[2024-01-20 18:45] LABS: Erythrocyte Sedimentation Rate 23 MM/HR (0-20)
[2024-01-20 20:03] VITALS: BP 143/80; PULSE 83; RESP 20; TEMP 36.8; O2SAT 96
[2024-01-20] MEDS: Amoxicillin/Potassium Clav 875 MG TABLET PO (20:54)
[2024-01-20] MEDS: Acetaminophen 325 MG TABLET 975 MG PO (20:54)
[2024-01-20] MEDS: Ibuprofen 600 MG TABLET PO (20:54)
[2024-01-20 20:58] VITALS: BP 139/72; PULSE 81; RESP 16; TEMP 36.9; O2SAT 98
[2024-01-20 21:01] VITALS: BP 139/72; PULSE 81; RESP 16; TEMP 36.9; O2SAT 98
== END 2024-01-20 21:02 | disposition home or self-care (01) ==
PROVIDERS: Registered Nurse Emergency; Emergency Provider Emergency Medicine
DX: K04.7 Periapical abscess without sinus (principal)
CPT/HCPCS: 36415; 80053; 84702; 85025; 85652; 86140; 99283; 99284

== ENCOUNTER 2024-04-25 15:07 | Emergency (ER) | payer OTHER, SELFPAY ==
--- NOTE | ~2024-04-25 | XR_ITS ---
CLINICAL HISTORY: cough 2 view chest x-ray Comparison: CR/SR - XR CHEST 2V - 10/25/23 15:22 EDT Findings: Bilateral peribronchial thickening suggesting bronchitis. No consolidation, pleural effusion or pneumothorax. Heart size is normal. No acute fracture. IMPRESSION: Bilateral peribronchial thickening suggesting bronchitis. This document has been electronically signed by: Michael Victoria MD on 04/25/2024 16:26:39
[2024-04-25 15:19] VITALS: BP 147/79; PULSE 90; RESP 26; TEMP 37.4; O2SAT 94; BMI 49.1
--- NOTE | 2024-04-25 15:20 | ED.URI ---
HPI - URI/Sore Throat General Chief Complaint: Upper Respiratory Symptoms Stated Complaint: fever, SOB Time Seen by Provider: 04/25/24 16:44 Source: patient, RN notes reviewed and old records reviewed Mode of arrival: ambulatory History of Present Illness ED Provider: Tosha Lucero PA-C HPI Narrative: 38-year-old female with no significant past medical history presenting to the ED complaining of dry cough, subjective fever, SOB, and chest discomfort with coughing x4 days. Admits is in ED with her with similar symptoms. Denies sore throat, recent travel Related Data Previous Rx's ?Medication ?Instructions ?Recorded doxycycline hyclate 100 mg 100 mg IV Q12H #20 ea 02/03/22 intravenous powder for solution (Doxy-100) hydromorphone 0.5 mg/0.5 mL 0.5 mg IVPUSH Q4H PRN Pain, Severe 02/03/22 injection syringe (Pain Scale 7-10) #10 mL metronidazole 500 mg/100 mL in 500 mg IV Q12H #300 mL 02/03/22 sodium chlor(iso) intravenous piggyback oxycodone 5 mg tablet 10 mg (2 x 5 mg) PO Q4H PRN Pain, 02/03/22 Moderate (Pain Scale 4-6 #30 tabs piperacillin-tazobactam 3.375 3.375 g (56.25 mL) IV Q6H #1,200 mL 02/03/22 gram/50 mL dextrose(iso-os) IV piggyback (Zosyn) amoxicillin 875 mg tablet 875 mg PO TID 7 days #21 tabs 11/27/22 oxycodone 5 mg tablet 5 mg PO Q8H PRN pain #6 tabs 11/27/22 acetaminophen 500 mg tablet 1,000 mg (2 x 500 mg) PO Q6H PRN 05/06/23 (Tylenol Extra Strength) pain #30 tabs amoxicillin 875 mg-potassium 1 tab PO BID 7 days #13 tabs 05/06/23 clavulanate 125 mg tablet ibuprofen 600 mg tablet 600 mg PO Q6H PRN fever or pain 05/06/23 #30 tabs amoxicillin 875 mg-potassium 1 tab PO Q12H 7 days #14 tabs 06/17/23 clavulanate 125 mg tablet oxycodone 5 mg tablet 5 mg PO Q8H PRN pain (scale score 06/17/23 7-10) #6 tabs amoxicillin 875 mg-potassium 1 tab PO BID #20 tabs 06/26/23 clavulanate 125 mg tablet amoxicillin 875 mg-potassium 1 tab PO BID #13 tabs 10/06/23 clavulanate 125 mg tablet acetaminophen 500 mg tablet 1,000 mg (2 x 500 mg) PO Q6H PRN 10/25/23 (Tylenol Extra Strength) pain #30 tabs amoxicillin 875 mg-potassium 1 tab PO BID 7 days #14 tabs 10/25/23 clavulanate 125 mg tablet ibuprofen 600 mg tablet 600 mg PO Q6H PRN pain #30 tabs 10/25/23 acetaminophen 500 mg tablet 1,000 mg (2 x 500 mg) PO QID PRN 01/20/24 pain #30 tabs amoxicillin 875 mg-potassium 1 tab PO BID 10 days #20 tabs 01/20/24 clavulanate 125 mg tablet ibuprofen 600 mg tablet 600 mg PO Q6H PRN pain #20 tabs 01/20/24 oxycodone 5 mg tablet 5 mg PO Q6H PRN pain 3 days #10 01/20/24 tabs albuterol sulfate 90 mcg/actuation 2 puff inhalation Q4-6H PRN 04/25/24 aerosol inhaler shortness of breath or wheezing #6.7 grams benzonatate 100 mg capsule 100 mg PO TID PRN cough #14 caps 04/25/24 Allergies Allergy/AdvReac Type Severity Reaction Status Date / Time strawberry [STRAWBERRY] Allergy Mild ITCHING Verified 04/25/24 15:21 Review of Systems Review of Systems: Yes all other systems are reviewed and are negative Constitutional: Constitutional: Reports as per [facility] Past Medical History Attestation statement: The following information was validated with the patient. Source: old records reviewed Medical History Cocaine abuse Social History Social History Household Members: Other Household Members Other:: cousin Housing: Apartment Do you presently have visiting nurse or other home services: No Alcohol intake: never Patient Tobacco Use Status: Current everyday Tobacco user Cigarette Packs Per Day: 0.4 Cigarettes Per Day: 8.0 Years Smoked: 15 Second Hand Smoke Exposure: No service: No Current occupational status: employed Physical Exam Vital Signs: Vital Signs: Last Vital Signs Temp 99.3 F 04/25/24 15:19 Pulse 91 04/25/24 17:05 Resp 18 04/25/24 17:05 BP 147/79 H 04/25/24 15:19 Pulse Ox 94 04/25/24 15:19 O2 Del Method Room Air 04/25/24 15:19 BMI result Body Mass Index 49.1 Const: General: cooperative, healthy appearing and no acute distress Orientation/consciousness: patient oriented x3 Limitations: no limitations HEENT: Head: Yes normal to inspection and Yes atraumatic Ears: hearing grossly normal bilaterally General nose exam: Normal external nose present Face and sinus: Yes normal facial exam Eyes: General: appearance normal, both eyes and all related structures EOM: EOMs intact bilaterally Neck: Neck: Yes normal visual inspection and Yes no meningeal signs Resp: Effort & Inspection: normal respiratory effort, no respiratory distress and tachypneic Auscultation: clear to auscultation bilaterally, no crackles, no rales, no rhonchi and no wheezes Cardio: Rate: regular rate Heart sounds: S1 normal heart sound present and S2 normal heart sound present Skin: Rashes: no rashes Wounds: no wounds Neuro: General: patient oriented x3, tone normal and no meningeal signs Cranial nerves: Yes CN's II-XII intact bilaterally Gait exam (Neuro): Normal gait present Extrem: General: Yes normal to inspection Course Course Course Narrative: This is a Rapid Medical Exam performed in triage by Tosha Lucero PA-C. Full HPI, ROS and PE to be performed by primary ED provider. 38yo F w/pmhx PID presenting to the ED c/o cough, fever, SOB, chest pain w/coughing x4 days . +sick contacts. denies sore throat PE: dry cough, lungs CTA Plan: SARS, CXR XR chest 2V IMPRESSION: Bilateral peribronchial thickening suggesting bronchitis. -influenza B positive Results discussed with patient including worrisome signs and symptoms and strict return precautions, and when to return to the emergency department. They verbalized understanding and feel safe for discharge at this time. Medications Administered Discontinued Medications Generic Name Dose Route Start Last Admin Trade Name Freq PRN Reason Stop Dose Admin Albuterol Sulfate 4 puff 04/25/24 16:53 04/25/24 17:03 Albuterol Sulfate 90 Mcg 8 Gm Inhaler INHALE 04/25/24 16:54 4 puff ONCE ONE Administration Medical Decision Making Medical Decision Making [facility] Narrative: [15:30] 38-year-old female with no significant past medical history presenting to the ED complaining of dry cough, subjective fever, SOB, and chest discomfort with coughing x4 days. On exam mildly tachypneic with exertion. NAD she is nontoxic appearing, no respiratory distress, low-grade temp 99.3 degrees, lungs CTA. Concern for viral illness. Rule out pneumonia/bronchitis. Low suspicion for severe sepsis at this time as likely viral etiology Plan: CXR, viral testing Please refer to course for remaining clinical decision making, interpretation of labs/imaging results, and discussions with consultants and/or family members. Differential Diagnosis Differential Diagnoses: The differential diagnosis associated with the presentation includes As above Admission/Observation Consideration of admission/observation: Escalation of care including admission/observation considered Lab Data [facility] Lab Attestation statement: I reviewed the patient's lab results. Labs: Lab Results 04/25/24 Range/Units 15:44 Influenza Type A (PCR) NEGATIVE (Negative) Influenza Type B (PCR) POSITIVE A (Negative) RSV RNA Qual (PCR) NEGATIVE (Negative) SARS-CoV-2 RNA (RT-PCR) NEGATIVE (Negative) Independent Interpretation I performed an independent interpretation of an: Plain X-Ray Radiology Impression Discussion of test interpretation with radiology: I have reviewed the radiologist's reading. External Record Review External record reviewed: Inpatient record, Office record, Outpatient record, Prior outpatient labs, Prior outpatient radiology, Primary care record and Outside ED record Tests considered The following testing was considered but not selected: As above Prescription Management I considered prescription management with: Antiviral and Antibiotic Chronic Conditions Patient?s care impacted by: Other Social Determinants Patient?s care significantly limited by Social Determinants of Health including: Other Social Determinant of Health Discharge Plan Discharge Clinical Impression: Influenza Patient Disposition: Home, Self-Care Instructions: Influenza (DC) Additional Instructions: You have the flu No antibiotics are indicated at this time Make sure you are staying hydrated. Drink plenty of fluids. Rest Alternate Tylenol and Motrin at home as needed for body aches and fever Lj [place] for cough, please take as needed. Please use albuterol inhaler as needed for shortness of breath/wheezing. Follow-up with your doctor. If symptoms persist or worsen return to the emergency department *If you are a child & not tolerating liquid or urinating for more than 6 hours, or fevers are uncontrolled with medications at home, return to the emergency department* Prescriptions: New benzonatate 100 mg capsule 100 mg PO TID PRN (Reason: cough) Qty: 14 0RF albuterol sulfate 90 mcg/actuation HFA aerosol inhaler 2 puff inhalation Q4-6H PRN (Reason: shortness of breath or wheezing) Qty: 6.7 0RF No Action metronidazole in NaCl (iso-os) 500 mg/100 mL Piggyback 500 mg IV Q12H Qty: 300 0RF doxycycline hyclate [Doxy-100] 100 mg Recon Soln 100 mg IV Q12H Qty: 20 0RF oxycodone 5 mg Tablet 10 mg PO Q4H PRN (Reason: Pain, Moderate (Pain Scale 4-6) Qty: 30 0RF Rx Instructions: Partial Fill upon patient request. hydromorphone 0.5 mg/0.5 mL Syringe 0.5 mg IVPUSH Q4H PRN (Reason: Pain, Severe (Pain Scale 7-10)) Qty: 10 0RF Protocol: Hold for RR < HOLD and contact provider for RR < (bpm): 12 Rx Instructions: Partial Fill upon patient request. Zosyn in dextrose (iso-osm) 3.375 gram/50 mL piggyback 3.375 g IV Q6H Qty: 1200 0RF amoxicillin 875 mg tablet 875 mg PO TID 7 Days Qty: 21 0RF oxycodone 5 mg tablet 5 mg PO Q8H PRN (Reason: pain) Qty: 6 0RF Rx Instructions: Partial Fill upon patient request. amoxicillin-pot clavulanate 875-125 mg tablet 1 tab PO BID 7 Days Qty: 13 0RF ibuprofen 600 mg tablet 600 mg PO Q6H PRN (Reason: fever or pain) Qty: 30 0RF acetaminophen [Tylenol Extra Strength] 500 mg tablet 1,000 mg PO Q6H PRN (Reason: pain) Qty: 30 0RF amoxicillin-pot clavulanate 875-125 mg tablet 1 tab PO Q12H 7 Days Qty: 14 0RF oxycodone 5 mg tablet 5 mg PO Q8H PRN (Reason: pain (scale score 7-10)) Qty: 6 0RF Rx Instructions: Partial Fill upon patient request. amoxicillin-pot clavulanate 875-125 mg tablet 1 tab PO BID Qty: 13 0RF amoxicillin-pot clavulanate 875-125 mg tablet 1 tab PO BID 7 Days Qty: 14 0RF ibuprofen 600 mg tablet 600 mg PO Q6H PRN (Reason: pain) Qty: 30 0RF acetaminophen [Tylenol Extra Strength] 500 mg tablet 1,000 mg PO Q6H PRN (Reason: pain) Qty: 30 0RF amoxicillin-pot clavulanate 875-125 mg tablet 1 tab PO BID Qty: 20 0RF amoxicillin-pot clavulanate 875-125 mg tablet 1 tab PO BID 10 Days Qty: 20 0RF acetaminophen 500 mg tablet 1,000 mg PO QID PRN (Reason: pain) Qty: 30 0RF oxycodone 5 mg tablet 5 mg PO Q6H PRN (Reason: pain) 3 Days Qty: 10 0RF Rx Instructions: Partial Fill upon patient request. ibuprofen 600 mg tablet 600 mg PO Q6H PRN (Reason: pain) Qty: 20 0RF Referrals: Physician,None [Primary Care Provider] - Stand Alone Forms: Work/School Release Print Language: Icelandic
[2024-04-25 16:36] LABS: Influenza A PCR NEGATIVE (Negative); Influenza B PCR POSITIVE (Negative); Resp Syncy Virus RNA Qual PCR NEGATIVE (Negative); SARS COV2 PCR INHOUSE NEGATIVE (Negative)
[2024-04-25] MEDS: Albuterol Sulfate 90 MCG 8 GM INHALER 4 PUFF INHALE (17:03)
[2024-04-25 17:05] VITALS: PULSE 91; RESP 18; O2SAT 95
[2024-04-25 17:15] VITALS: BP 150/70; PULSE 91; RESP 18; TEMP 36.4
== END 2024-04-25 17:17 | disposition home or self-care (01) ==
LOC: HO.ED 17:15
PROVIDERS: Physician Assistant; Emergency Provider Emergency Medicine Emergency Medical Services
DX: R50.9 Fever, unspecified (principal); R06.02 Shortness of breath; R07.89 Other chest pain; R05.9 Cough, unspecified; Z03.818 Encounter for observation for suspected exposure to other biological agents ruled out; Z79.899 Other long term (current) drug therapy
CPT/HCPCS: 0241U; 71046; 94640; 99283; 99284

== ENCOUNTER → 2024-04-25 15:21 | Outpatient (BNV) | payer OTHER, SELFPAY | PROVIDERS: Visit Provider Radiology Diagnostic Radiology | DX: J98.09 Other diseases of bronchus, not elsewhere classified (principal) | CPT/HCPCS: 71046 ==

== ENCOUNTER 2024-05-30 17:00 | Emergency (ER) | payer OTHER, SELFPAY ==
[2024-05-30 17:05] VITALS: BP 146/58; PULSE 80; RESP 18; TEMP 37.2; O2SAT 98; BMI 47.2
--- NOTE | 2024-05-30 17:06 | ED.GENADULT ---
HPI - General Adult General Chief complaint: Dental/Oral Stated complaint: Right side face numb Time Seen by Provider: 05/30/24 21:51 Source: patient Mode of arrival: ambulatory Limitations: no limitations History of Present Illness ED Provider: Dr. Whitney Khan HPI narrative: patient comes to the emergency room complaining of dental pain. Patient states that on the right upper side she has a decaying tooth and has been hurting for several months. Patient has an appointment pending with her dentist in about 2 weeks. Patient denies any drainage, denies fever chills. Related Data Previous Rx's ?Medication ?Instructions ?Recorded doxycycline hyclate 100 mg 100 mg IV Q12H #20 ea 02/03/22 intravenous powder for solution (Doxy-100) hydromorphone 0.5 mg/0.5 mL 0.5 mg IVPUSH Q4H PRN Pain, Severe 02/03/22 injection syringe (Pain Scale 7-10) #10 mL metronidazole 500 mg/100 mL in 500 mg IV Q12H #300 mL 02/03/22 sodium chlor(iso) intravenous piggyback oxycodone 5 mg tablet 10 mg (2 x 5 mg) PO Q4H PRN Pain, 02/03/22 Moderate (Pain Scale 4-6 #30 tabs piperacillin-tazobactam 3.375 3.375 g (56.25 mL) IV Q6H #1,200 mL 02/03/22 gram/50 mL dextrose(iso-os) IV piggyback (Zosyn) amoxicillin 875 mg tablet 875 mg PO TID 7 days #21 tabs 11/27/22 oxycodone 5 mg tablet 5 mg PO Q8H PRN pain #6 tabs 11/27/22 acetaminophen 500 mg tablet 1,000 mg (2 x 500 mg) PO Q6H PRN 05/06/23 (Tylenol Extra Strength) pain #30 tabs amoxicillin 875 mg-potassium 1 tab PO BID 7 days #13 tabs 05/06/23 clavulanate 125 mg tablet ibuprofen 600 mg tablet 600 mg PO Q6H PRN fever or pain 05/06/23 #30 tabs amoxicillin 875 mg-potassium 1 tab PO Q12H 7 days #14 tabs 06/17/23 clavulanate 125 mg tablet oxycodone 5 mg tablet 5 mg PO Q8H PRN pain (scale score 06/17/23 7-10) #6 tabs amoxicillin 875 mg-potassium 1 tab PO BID #20 tabs 06/26/23 clavulanate 125 mg tablet amoxicillin 875 mg-potassium 1 tab PO BID #13 tabs 10/06/23 clavulanate 125 mg tablet acetaminophen 500 mg tablet 1,000 mg (2 x 500 mg) PO Q6H PRN 10/25/23 (Tylenol Extra Strength) pain #30 tabs amoxicillin 875 mg-potassium 1 tab PO BID 7 days #14 tabs 10/25/23 clavulanate 125 mg tablet ibuprofen 600 mg tablet 600 mg PO Q6H PRN pain #30 tabs 10/25/23 acetaminophen 500 mg tablet 1,000 mg (2 x 500 mg) PO QID PRN 01/20/24 pain #30 tabs amoxicillin 875 mg-potassium 1 tab PO BID 10 days #20 tabs 01/20/24 clavulanate 125 mg tablet ibuprofen 600 mg tablet 600 mg PO Q6H PRN pain #20 tabs 01/20/24 oxycodone 5 mg tablet 5 mg PO Q6H PRN pain 3 days #10 01/20/24 tabs albuterol sulfate 90 mcg/actuation 2 puff inhalation Q4-6H PRN 04/25/24 aerosol inhaler shortness of breath or wheezing #6.7 grams benzonatate 100 mg capsule 100 mg PO TID PRN cough #14 caps 04/25/24 amoxicillin 500 mg-potassium 1 tab PO BID #20 tabs 05/30/24 clavulanate 125 mg tablet (Augmentin) ibuprofen 600 mg tablet 600 mg PO Q8H PRN fever or pain 05/30/24 #20 tabs Allergies Allergy/AdvReac Type Severity Reaction Status Date / Time strawberry [STRAWBERRY] Allergy Mild ITCHING Verified 05/30/24 17:08 Review of Systems Review of Systems: Constitutional : No Weight loss, No Fever, No Chills, No Night Sweats, No Fatigue, No Malaise ENT/Mouth : Complaining of dental pain in the right upper side.No Hearing loss, No Ear Pain, No Nasal Congestion, No Sinus Pain, No Hoarseness, No sore throat, No Rhinorrhea, No Swallowing Difficulty Eyes: No Eye Pain, No Swelling, No Redness, No Foreign Body, No Discharge, No Vision Changes Cardiovascular : No Chest Pain, No SOB, No Dyspnea on Exertion, No Orthopnea, No Edema, No Palpitations Respiratory : No Cough, No Sputum, No Wheezing, No Smoke Exposure, No Dyspnea Gastrointestinal : No Nausea, No Vomiting, No Diarrhea, No Constipation, No abdominal Pain, No Hematochezia, No Melena Genitourinary : no irregular bleeding, No Dysuria, No Urinary Frequency, No Hematuria, No Urinary Incontinence, No Urgency, No Flank Pain, No Urinary Flow Changes, No Hesitancy Musculoskeletal : No joint pain, No Myalgias, No Joint Swelling Skin : No Skin Lesions, No rash Neuro : No Weakness, No Numbness, No Paresthesias, No Loss of Consciousness, No Dizziness, No Headache Psych : No Anxiety/Panic, No Depression, No SI/HI/AH/VH, No Social Issues, Heme/Lymph: No Bruising, No Bleeding,No Lymphadenopathy Endocrine : No Polyuria, No Polydipsia, No Temperature Intolerance [facility] Past Medical History Medical History Cocaine abuse Social History Social History Household Members: Other Household Members Other:: cousin Housing: Apartment Do you presently have visiting nurse or other home services: No Alcohol intake: never Patient Tobacco Use Status: Current everyday Tobacco user Cigarette Packs Per Day: 0.4 Cigarettes Per Day: 8.0 Years Smoked: 15 Second Hand Smoke Exposure: No Advance Directives: No Advance Directives Information Provided: No service: No Current occupational status: employed Physical Exam ED Vital Signs: Vital Signs - 24 hr 05/30/24 17:05 05/30/24 20:34 Temperature 98.9 F 98.1 F Pulse Rate 80 68 Respiratory Rate 18 16 Blood Pressure 146/58 H 145/63 H Pulse Oximetry 98 95 Oxygen Delivery Method Room Air Room Air BMI result Body Mass Index 47.2 Const Other: Appearance: Alert. Oriented X3. No acute distress. Eyes: Pupils equal, round and reactive to light. ENT: Pharynx normal. Patient has poor dentition especially on the maxillary right side. Patient has a decaying tooth. No obvious abscess the could possibly be drained. Neck: Normal inspection. Neck supple. No lymph nodes noted. No crepitus CVS: Normal heart rate and rhythm. Pulses normal. Normal S1 and S2 Respiratory: No respiratory distress. Breath sounds normal. No Wheezing. No rales Abdomen: Soft and nontender. No rigidity. No distention. Skin: Skin warm and dry. Normal skin color. Normal skin turgor. Extremities: No lower extremity edema. No Lacerations. No Rash Neuro: Oriented X 3. No motor deficit. No sensory deficit. Moving all extremities. No slurred speech. CN 2 through 12 grossly intact Psych: calm, cooperative, normal affect Course Course Course Narrative: This is a Rapid Medical Examination (RME) performed by Candelaria Collins PA-C in triage. Full HPI, ROS, assessment and treatment plan per primary provider in the Main ED. Hx: 38 yo female here for eval of right facial swelling x24 hours. reports infected upper right tooth - has extraction scheduled in 2 wks. now has swelling and pain, making it difficult to sleep. no dysphagia, fever/chills. PE/vitals: noted swelling to right cheek, ttp. no crepitus. no fluctuance. multiple dental caries/ poor dentition. no obvious periapical abscess. Plan: screening labs, inflammatory markers Medications Administered Discontinued Medications Generic Name Dose Route Start Last Admin Trade Name Michaelq PRN Reason Stop Dose Admin Ibuprofen 600 mg 05/30/24 20:35 05/30/24 20:38 Ibuprofen 600 Mg Tablet PO 05/30/24 20:36 600 mg ONCE ONE Administration Medical Decision Making Medical Decision Making [facility] Narrative: Patient states that she has had multiple dental infections and what works best for her is amoxicillin. Patient declined IM medication. Patient was given p.o. ibuprofen. Patient has an appointment pending with her dentist in 2 weeks my interpretation of labs, no significant abnormality in patient's hematology and chemistry. Lab Data [facility] Lab Attestation statement: I reviewed the patient's lab results. 05/30/24 17:23 05/30/24 17:23 Labs: Lab Results 05/30/24 Range/Units 17:23 WBC 9.0 (4.8-10.8) X10*3/uL RBC 4.44 (4.20-5.50) X10*6/uL Hgb 12.7 (12.0-16.0) g/dl Hct 38.4 (37.0-47.0) % MCV 86.5 (80.0-98.0) fL MCH 28.6 (27.0-33.0) pg MCHC 33.1 (31.0-35.0) g/dl RDW 13.2 (11.0-16.0) % Plt Count 221 (160-400) X10*3/uL MPV 9.2 L (9.4-12.3) fL Immature Gran % (Auto) 0.6 H (0.0-0.4) % Neut % (Auto) 76.5 H (45-73) % Lymph % (Auto) 18.4 L (20-40) % [place] % (Auto) 4.4 (2-11) % Eos % (Auto) 0.0 (0-4) % Baso % (Auto) 0.1 (0-2) % Lymph # (Auto) 1.7 (1.2-4.9) X10*3/uL [place] # (Auto) 0.4 (0.1-1.2) X10*3/uL Eos # (Auto) 0.0 (0.0-0.4) X10*3/uL Baso # (Auto) 0.0 (0.0-0.2) X10*3/uL Abs Immat Gran (auto) 0.05 H (0.00-0.03) X10*3/uL Absolute Neuts (auto) 6.9 (2.0-8.3) x10*3/uL Absolute Nucleated RBC 0.000 (0.0-0.012) X10*3/uL Nucleated RBC % (auto) 0.0 (0.0-0.2) /100WBC ESR 25 H (0-20) MM/HR Sodium 136 (135-145) mmol/L Potassium 4.4 (3.3-5.1) mmol/L Chloride 105 (96-108) mmol/L Carbon Dioxide 21 L (22-29) mmol/L Anion Gap 14 (12-20) BUN 9 (9-16) mg/dL Creatinine 0.60 (0.5-1.4) mg/dL Estim Creat Clear Calc 199.8 Estimated GFR > 60 Random Glucose 117 H (60-115) mg/dL Calcium 8.8 (8.4-10.2) mg/dL Total Bilirubin 0.5 (0.0-1.0) mg/dL AST 36 H (5-31) U/L ALT 17 (0-31) U/L Alkaline Phosphatase 95 (39-117) U/L C-Reactive Protein 1.55 H (< or = 0.50) mg/dL Total Protein 8.1 H (6.5-8.0) g/dL Albumin 3.7 (3.5-5.0) g/dL Discharge Plan Discharge Clinical Impression: Pain, dental Patient Disposition: Home, Self-Care Instructions: Toothache (ED) Additional Instructions: Please follow-up with your primary care physician tomorrow. If you have any worsening or new symptoms, please return to the emergency room or call 911 Prescriptions: New amoxicillin-pot clavulanate [Augmentin] 500-125 mg tablet 1 tab PO BID Qty: 20 0RF ibuprofen 600 mg tablet 600 mg PO Q8H PRN (Reason: fever or pain) Qty: 20 0RF No Action metronidazole in NaCl (iso-os) 500 mg/100 mL Piggyback 500 mg IV Q12H Qty: 300 0RF doxycycline hyclate [Doxy-100] 100 mg Recon Soln 100 mg IV Q12H Qty: 20 0RF oxycodone 5 mg Tablet 10 mg PO Q4H PRN (Reason: Pain, Moderate (Pain Scale 4-6) Qty: 30 0RF Rx Instructions: Partial Fill upon patient request. hydromorphone 0.5 mg/0.5 mL Syringe 0.5 mg IVPUSH Q4H PRN (Reason: Pain, Severe (Pain Scale 7-10)) Qty: 10 0RF Protocol: Hold for RR < HOLD and contact provider for RR < (bpm): 12 Rx Instructions: Partial Fill upon patient request. Zosyn in dextrose (iso-osm) 3.375 gram/50 mL piggyback 3.375 g IV Q6H Qty: 1200 0RF amoxicillin 875 mg tablet 875 mg PO TID 7 Days Qty: 21 0RF oxycodone 5 mg tablet 5 mg PO Q8H PRN (Reason: pain) Qty: 6 0RF Rx Instructions: Partial Fill upon patient request. amoxicillin-pot clavulanate 875-125 mg tablet 1 tab PO BID 7 Days Qty: 13 0RF ibuprofen 600 mg tablet 600 mg PO Q6H PRN (Reason: fever or pain) Qty: 30 0RF acetaminophen [Tylenol Extra Strength] 500 mg tablet 1,000 mg PO Q6H PRN (Reason: pain) Qty: 30 0RF amoxicillin-pot clavulanate 875-125 mg tablet 1 tab PO Q12H 7 Days Qty: 14 0RF oxycodone 5 mg tablet 5 mg PO Q8H PRN (Reason: pain (scale score 7-10)) Qty: 6 0RF Rx Instructions: Partial Fill upon patient request. amoxicillin-pot clavulanate 875-125 mg tablet 1 tab PO BID Qty: 13 0RF amoxicillin-pot clavulanate 875-125 mg tablet 1 tab PO BID 7 Days Qty: 14 0RF ibuprofen 600 mg tablet 600 mg PO Q6H PRN (Reason: pain) Qty: 30 0RF acetaminophen [Tylenol Extra Strength] 500 mg tablet 1,000 mg PO Q6H PRN (Reason: pain) Qty: 30 0RF amoxicillin-pot clavulanate 875-125 mg tablet 1 tab PO BID Qty: 20 0RF amoxicillin-pot clavulanate 875-125 mg tablet 1 tab PO BID 10 Days Qty: 20 0RF acetaminophen 500 mg tablet 1,000 mg PO QID PRN (Reason: pain) Qty: 30 0RF oxycodone 5 mg tablet 5 mg PO Q6H PRN (Reason: pain) 3 Days Qty: 10 0RF Rx Instructions: Partial Fill upon patient request. ibuprofen 600 mg tablet 600 mg PO Q6H PRN (Reason: pain) Qty: 20 0RF benzonatate 100 mg capsule 100 mg PO TID PRN (Reason: cough) Qty: 14 0RF albuterol sulfate 90 mcg/actuation HFA aerosol inhaler 2 puff inhalation Q4-6H PRN (Reason: shortness of breath or wheezing) Qty: 6.7 0RF Print Language: Tristanian
[2024-05-30 17:27] LABS: MANUAL DIFF FLAG NO
[2024-05-30 17:29] LABS: Basophils Percent Auto 0.1 % (0-2); Hematocrit 38.4 % (37.0-47.0); Hemoglobin 12.7 g/dl (12.0-16.0); Imm Gran Abs Auto 0.05 X10*3/uL (0.00-0.03); Imm Gran Pct Auto 0.6 % (0.0-0.4); Lymphocytes Absolute Auto 1.7 X10*3/uL (1.2-4.9); Lymphocytes Percent Auto 18.4 % (20-40); Mean Corpuscular HGB Conc 33.1 g/dl (31.0-35.0); Mean Corpuscular Hemoglobin 28.6 pg (27.0-33.0); Mean Corpuscular Volume 86.5 fL (80.0-98.0); Mean Platelet Volume 9.2 fL (9.4-12.3); Monocytes Absolute Auto 0.4 X10*3/uL (0.1-1.2); Monocytes Percent Auto 4.4 % (2-11); Neutrophils Absolute Auto 6.9 x10*3/uL (2.0-8.3); Neutrophils Percent Auto 76.5 % (45-73); Platelet Count 221 X10*3/uL (160-400); Red Blood Count 4.44 X10*6/uL (4.20-5.50); Red Cell Distribution Width 13.2 % (11.0-16.0)
[2024-05-30 17:49] LABS: Alanine Aminotransferase 17 U/L (0-31); Albumin Level 3.7 g/dL (3.5-5.0); Alkaline Phosphatase 95 U/L (39-117); Anion Gap 14 (12-20); Aspartate Amino Transferase 36 U/L (5-31); Bilirubin Total 0.5 mg/dL (0.0-1.0); Blood Urea Nitrogen 9 mg/dL (9-16); C Reactive Protein 1.55 mg/dL (< or = 0.50); Calcium 8.8 mg/dL (8.4-10.2); Carbon Dioxide 21 mmol/L (22-29); Chloride 105 mmol/L (96-108); Creatinine Clr Calc Pharmacy 199.8; Estimated Glomerular Filt Rate > 60; Glucose Random 117 mg/dL (60-115); Potassium 4.4 mmol/L (3.3-5.1); Sodium 136 mmol/L (135-145); Total Protein 8.1 g/dL (6.5-8.0)
[2024-05-30 18:24] LABS: Erythrocyte Sedimentation Rate 25 MM/HR (0-20)
[2024-05-30 20:34] VITALS: BP 145/63; PULSE 68; RESP 16; TEMP 36.7; O2SAT 95
[2024-05-30] MEDS: Ibuprofen 600 MG TABLET PO (20:38)
[2024-05-30] MEDS: Amoxicillin/Potassium Clav 500 MG TABLET PO (22:20)
[2024-05-30 22:26] VITALS: BP 145/63; PULSE 68; RESP 16; TEMP 36.7
[2024-05-30 23:27] VITALS: BP 145/63; PULSE 68; RESP 16; TEMP 36.7
== END 2024-05-30 23:29 | disposition home or self-care (01) ==
PROVIDERS: Physician Assistant Medical; Emergency Provider Emergency Medicine; PCP Internal Medicine
DX: K08.89 Other specified disorders of teeth and supporting structures (principal)
CPT/HCPCS: 36415; 80053; 85025; 85652; 86140; 99283; 99284

== ENCOUNTER 2024-11-11 18:23 | Emergency (ER) | payer OTHER, SELFPAY ==
[2024-11-11 18:46] VITALS: BP 165/93; PULSE 87; RESP 20; TEMP 37; O2SAT 98; BMI 53.5
--- NOTE | 2024-11-11 18:48 | ED.GENADULT ---
HPI - General Adult General Chief complaint: General Medical Stated complaint: left side face swollen ? sinus Time Seen by Provider: 11/11/24 20:33 Source: patient and old records reviewed Mode of arrival: ambulatory Limitations: no limitations History of Present Illness ED Provider: MERYL SMITH narrative: 39 yo female with known poor dentition but states her teeth feel fine though she has had L sided facial swelling on L cheek but no rash on cheeks x this AM. She denies diff swallowing. She states she has had this before and responded to amoxicillin. No fevers. MD complaint: facial swelling Onset (ago): day(s) (today) Location: face Radiation: non-radiation Severity: mild Relieving factors: none Exacerbating factors: none Associated symptoms: denies other symptoms Treatments prior to arrival: none Related Data Previous Rx's ?Medication ?Instructions ?Recorded doxycycline hyclate 100 mg 100 mg IV Q12H #20 ea 02/03/22 intravenous powder for solution (Doxy-100) hydromorphone 0.5 mg/0.5 mL 0.5 mg IVPUSH Q4H PRN Pain, Severe 02/03/22 injection syringe (Pain Scale 7-10) #10 mL metronidazole 500 mg/100 mL in 500 mg IV Q12H #300 mL 02/03/22 sodium chlor(iso) intravenous piggyback oxycodone 5 mg tablet 10 mg (2 x 5 mg) PO Q4H PRN Pain, 02/03/22 Moderate (Pain Scale 4-6 #30 tabs piperacillin-tazobactam 3.375 3.375 g (56.25 mL) IV Q6H #1,200 mL 02/03/22 gram/50 mL dextrose(iso-os) IV piggyback (Zosyn) amoxicillin 875 mg tablet 875 mg PO TID 7 days #21 tabs 11/27/22 oxycodone 5 mg tablet 5 mg PO Q8H PRN pain #6 tabs 11/27/22 acetaminophen 500 mg tablet 1,000 mg (2 x 500 mg) PO Q6H PRN 05/06/23 (Tylenol Extra Strength) pain #30 tabs amoxicillin 875 mg-potassium 1 tab PO BID 7 days #13 tabs 05/06/23 clavulanate 125 mg tablet ibuprofen 600 mg tablet 600 mg PO Q6H PRN fever or pain 05/06/23 #30 tabs amoxicillin 875 mg-potassium 1 tab PO Q12H 7 days #14 tabs 06/17/23 clavulanate 125 mg tablet oxycodone 5 mg tablet 5 mg PO Q8H PRN pain (scale score 06/17/23 7-10) #6 tabs amoxicillin 875 mg-potassium 1 tab PO BID #20 tabs 06/26/23 clavulanate 125 mg tablet amoxicillin 875 mg-potassium 1 tab PO BID #13 tabs 10/06/23 clavulanate 125 mg tablet acetaminophen 500 mg tablet 1,000 mg (2 x 500 mg) PO Q6H PRN 10/25/23 (Tylenol Extra Strength) pain #30 tabs amoxicillin 875 mg-potassium 1 tab PO BID 7 days #14 tabs 10/25/23 clavulanate 125 mg tablet ibuprofen 600 mg tablet 600 mg PO Q6H PRN pain #30 tabs 10/25/23 acetaminophen 500 mg tablet 1,000 mg (2 x 500 mg) PO QID PRN 01/20/24 pain #30 tabs amoxicillin 875 mg-potassium 1 tab PO BID 10 days #20 tabs 01/20/24 clavulanate 125 mg tablet ibuprofen 600 mg tablet 600 mg PO Q6H PRN pain #20 tabs 01/20/24 oxycodone 5 mg tablet 5 mg PO Q6H PRN pain 3 days #10 01/20/24 tabs albuterol sulfate 90 mcg/actuation 2 puff inhalation Q4-6H PRN 04/25/24 aerosol inhaler shortness of breath or wheezing #6.7 grams benzonatate 100 mg capsule 100 mg PO TID PRN cough #14 caps 04/25/24 amoxicillin 500 mg-potassium 1 tab PO BID #20 tabs 05/30/24 clavulanate 125 mg tablet (Augmentin) ibuprofen 600 mg tablet 600 mg PO Q8H PRN fever or pain 05/30/24 #20 tabs amoxicillin 875 mg-potassium 1 tab PO BID #9 tabs 11/11/24 clavulanate 125 mg tablet Allergies Allergy/AdvReac Type Severity Reaction Status Date / Time strawberry (STRAWBERRY) Allergy Mild ITCHING Verified 11/11/24 18:47 Review of Systems Review of Systems: Constitutional : No Fever, No Chills ENT/Mouth : No swallowing difficulty, no change in voice, positive dental pain, positive jaw pain, positive facial swelling Eyes: No Eye Pain, No Swelling Cardiovascular : No Chest Pain, No SOB Respiratory : No Cough, No Sputum Gastrointestinal : No Nausea, No Vomiting, No Diarrhea Genitourinary : No Dysuria Musculoskeletal : No Myalgias Skin : No rash Neuro : No Weakness, No Numbness, No Headache PMFSH Past Medical History Attestation statement: The following information was validated with the patient. Source: old records reviewed Medical History Cocaine abuse Social History Social History Household Members: Other Household Members Other:: cousin Housing: Apartment Do you presently have visiting nurse or other home services: No Alcohol intake: never Patient Tobacco Use Status: Current everyday Tobacco user Cigarette Packs Per Day: 0.4 Cigarettes Per Day: 8.0 Years Smoked: 15 Second Hand Smoke Exposure: No Advance Directives: No Advance Directives Information Provided: Yes service: No Current occupational status: employed Physical Exam ED Vital Signs: Vital Signs - 24 hr 11/11/24 18:46 11/11/24 20:54 Temperature 98.6 F 98.6 F Pulse Rate 87 87 Respiratory Rate 20 20 Blood Pressure 165/93 H 165/93 H Pulse Oximetry 98 98 Oxygen Delivery Method Room Air Room Air BMI result Body Mass Index 53.5 Appearance: Alert. Oriented X3. No acute distress. Eyes: Pupils equal, round and reactive to light. ENT: Pharynx normal. no trismus poor dental care throughout - L sided cheek swelling but no abscess, no erythema over cheek . no sublingual or submandibular swelling Neck: Normal inspection. Neck supple. CVS: Normal heart rate and rhythm. Pulses normal. Respiratory: No respiratory distress. Breath sounds normal. Abdomen: Soft and nontender. Skin: Skin warm and dry. Normal skin color. Extremities: No lower extremity edema. Neuro: Oriented X 3. No motor deficit. No sensory deficit. Course Course Course Narrative: This is a rapid medical exam performed by Roro Aguilar NP: Additional HPI, ROS, PE not included below will be deferred to primary provider. Patient is a 39-year old female presenting to the ED with complaint of left sided facial swelling since waking this morning. Denies pain or recent fevers. States she is supposed to have all the teeth removed from that area, but does not have appointment for that yet. Denies any discharge/drainage. Plan: Labs Medications Administered Discontinued Medications Generic Name Dose Route Start Last Admin Trade Name Law PRN Reason Stop Dose Admin Amoxicillin 500 mg 11/11/24 20:33 11/11/24 20:51 Amoxicillin 500 Mg Capsule PO 11/11/24 20:34 500 mg ONCE ONE Administration Medical Decision Making Medical Decision Making [facility] Narrative: 39 yo female no sig PMH here with L sided facial swelling and poor dentition at this time I am going to start on abx she has no trismus no sublingual/submandibular swelling no eye proptosis and no pain with EOMi. Differential Diagnosis Differential Diagnoses: The differential diagnosis associated with the presentation includes dental abscess, decay Admission/Observation Consideration of admission/observation: Escalation of care including admission/observation considered can trial oral outpatient abx Lab Data [facility] Lab Attestation statement: I reviewed the patient's lab results. 11/11/24 19:25 11/11/24 19:25 Labs: Lab Results 11/11/24 Range/Units 19:25 WBC 11.2 H (4.8-10.8) X10*3/uL RBC 4.30 (4.20-5.50) X10*6/uL Hgb 12.3 (12.0-16.0) g/dl Hct 36.9 L (37.0-47.0) % MCV 85.8 (80.0-98.0) fL MCH 28.6 (27.0-33.0) pg MCHC 33.3 (31.0-35.0) g/dl RDW 12.9 (11.0-16.0) % Plt Count 224 (160-400) X10*3/uL MPV 9.2 L (9.4-12.3) fL Immature Gran % (Auto) 0.4 (0.0-0.4) % Neut % (Auto) 76.3 H (45-73) % Lymph % (Auto) 17.9 L (20-40) % Boundary % (Auto) 5.2 (2-11) % Eos % (Auto) 0.0 (0-4) % Baso % (Auto) 0.2 (0-2) % Lymph # (Auto) 2.0 (1.2-4.9) X10*3/uL Boundary # (Auto) 0.6 (0.1-1.2) X10*3/uL Eos # (Auto) 0.0 (0.0-0.4) X10*3/uL Baso # (Auto) 0.0 (0.0-0.2) X10*3/uL Abs Immat Gran (auto) 0.05 H (0.00-0.03) X10*3/uL Absolute Neuts (auto) 8.5 H (2.0-8.3) x10*3/uL Absolute Nucleated RBC 0.000 (0.0-0.012) X10*3/uL Nucleated RBC % (auto) 0.0 (0.0-0.2) /100WBC Sodium 138 (135-145) mmol/L Potassium 3.8 (3.3-5.1) mmol/L Chloride 103 (96-108) mmol/L Carbon Dioxide 26 (22-29) mmol/L Anion Gap 13 (12-20) BUN 9 (9-16) mg/dL Creatinine 0.68 (0.5-1.4) mg/dL Estim Creat Clear Calc 176.9 Estimated GFR > 60 Random Glucose 82 (60-115) mg/dL Calcium 9.0 (8.4-10.2) mg/dL Total Bilirubin 0.4 (0.0-1.0) mg/dL AST 30 (5-31) U/L ALT 19 (0-31) U/L Alkaline Phosphatase 104 (39-117) U/L Total Protein 7.4 (6.5-8.0) g/dL Albumin 4.2 (3.5-5.0) g/dL External Record Review External record reviewed: Outpatient record Prescription Management I considered prescription management with: Antibiotic Discharge Plan Discharge Clinical Impression: Abscessed tooth Patient Disposition: Home, Self-Care Instructions: Dental Abscess (ED) Additional Instructions: I suspect this is due to your teeth return for fevers, worsening swelling or any other concerns On amoxicillin-clavulanate, softer bowel movements are to be expected. Call your provider if you move your bowels more than 4 times a day, your bowel movements are almost all liquid, or you get a rash.? Prescriptions: New amoxicillin-pot clavulanate 875-125 mg tablet 1 tab PO BID Qty: 9 0RF No Action metronidazole in NaCl (iso-os) 500 mg/100 mL Piggyback 500 mg IV Q12H Qty: 300 0RF doxycycline hyclate [Doxy-100] 100 mg Recon Soln 100 mg IV Q12H Qty: 20 0RF oxycodone 5 mg Tablet 10 mg PO Q4H PRN (Reason: Pain, Moderate (Pain Scale 4-6) Qty: 30 0RF Rx Instructions: Partial Fill upon patient request. hydromorphone 0.5 mg/0.5 mL Syringe 0.5 mg IVPUSH Q4H PRN (Reason: Pain, Severe (Pain Scale 7-10)) Qty: 10 0RF Protocol: Hold for RR < HOLD and contact provider for RR < (bpm): 12 Rx Instructions: Partial Fill upon patient request. Zosyn in dextrose (iso-osm) 3.375 gram/50 mL piggyback 3.375 g IV Q6H Qty: 1200 0RF amoxicillin 875 mg tablet 875 mg PO TID 7 Days Qty: 21 0RF oxycodone 5 mg tablet 5 mg PO Q8H PRN (Reason: pain) Qty: 6 0RF Rx Instructions: Partial Fill upon patient request. amoxicillin-pot clavulanate 875-125 mg tablet 1 tab PO BID 7 Days Qty: 13 0RF ibuprofen 600 mg tablet 600 mg PO Q6H PRN (Reason: fever or pain) Qty: 30 0RF acetaminophen [Tylenol Extra Strength] 500 mg tablet 1,000 mg PO Q6H PRN (Reason: pain) Qty: 30 0RF amoxicillin-pot clavulanate 875-125 mg tablet 1 tab PO Q12H 7 Days Qty: 14 0RF oxycodone 5 mg tablet 5 mg PO Q8H PRN (Reason: pain (scale score 7-10)) Qty: 6 0RF Rx Instructions: Partial Fill upon patient request. amoxicillin-pot clavulanate 875-125 mg tablet 1 tab PO BID Qty: 13 0RF amoxicillin-pot clavulanate 875-125 mg tablet 1 tab PO BID 7 Days Qty: 14 0RF ibuprofen 600 mg tablet 600 mg PO Q6H PRN (Reason: pain) Qty: 30 0RF acetaminophen [Tylenol Extra Strength] 500 mg tablet 1,000 mg PO Q6H PRN (Reason: pain) Qty: 30 0RF amoxicillin-pot clavulanate 875-125 mg tablet 1 tab PO BID Qty: 20 0RF amoxicillin-pot clavulanate 875-125 mg tablet 1 tab PO BID 10 Days Qty: 20 0RF acetaminophen 500 mg tablet 1,000 mg PO QID PRN (Reason: pain) Qty: 30 0RF oxycodone 5 mg tablet 5 mg PO Q6H PRN (Reason: pain) 3 Days Qty: 10 0RF Rx Instructions: Partial Fill upon patient request. ibuprofen 600 mg tablet 600 mg PO Q6H PRN (Reason: pain) Qty: 20 0RF benzonatate 100 mg capsule 100 mg PO TID PRN (Reason: cough) Qty: 14 0RF albuterol sulfate 90 mcg/actuation HFA aerosol inhaler 2 puff inhalation Q4-6H PRN (Reason: shortness of breath or wheezing) Qty: 6.7 0RF amoxicillin-pot clavulanate [Augmentin] 500-125 mg tablet 1 tab PO BID Qty: 20 0RF ibuprofen 600 mg tablet 600 mg PO Q8H PRN (Reason: fever or pain) Qty: 20 0RF Interventions: ED Discharge Assessment Last Done: 11/11/24 20:54 Discharge Date/Time: 11/11/24 20:54 Print Language: Kazakh
[2024-11-11 19:30] LABS: MANUAL DIFF FLAG NO
[2024-11-11 19:33] LABS: Hematocrit 36.9 % (37.0-47.0); Hemoglobin 12.3 g/dl (12.0-16.0); Imm Gran Abs Auto 0.05 X10*3/uL (0.00-0.03); Imm Gran Pct Auto 0.4 % (0.0-0.4); Lymphocytes Absolute Auto 2.0 X10*3/uL (1.2-4.9); Mean Corpuscular HGB Conc 33.3 g/dl (31.0-35.0); Mean Corpuscular Hemoglobin 28.6 pg (27.0-33.0); Mean Corpuscular Volume 85.8 fL (80.0-98.0); NRBC Abs Auto 0.000 X10*3/uL (0.0-0.012); NRBC Pct Auto 0.0 /100WBC (0.0-0.2); Platelet Count 224 X10*3/uL (160-400); Red Blood Count 4.30 X10*6/uL (4.20-5.50); White Blood Count 11.2 X10*3/uL (4.8-10.8)
[2024-11-11 19:45] LABS: Alanine Aminotransferase 19 U/L (0-31); Albumin Level 4.2 g/dL (3.5-5.0); Alkaline Phosphatase 104 U/L (39-117); Anion Gap 13 (12-20); Aspartate Amino Transferase 30 U/L (5-31); Blood Urea Nitrogen 9 mg/dL (9-16); Calcium 9.0 mg/dL (8.4-10.2); Carbon Dioxide 26 mmol/L (22-29); Chloride 103 mmol/L (96-108); Creatinine Clr Calc Pharmacy 176.9; Estimated Glomerular Filt Rate > 60; Potassium 3.8 mmol/L (3.3-5.1); Sodium 138 mmol/L (135-145); Total Protein 7.4 g/dL (6.5-8.0)
[2024-11-11 20:54] VITALS: BP 165/93; PULSE 87; RESP 20; TEMP 37; O2SAT 98
== END 2024-11-11 20:54 | disposition home or self-care (01) ==
PROVIDERS: Registered Nurse Emergency; Emergency Provider Emergency Medicine
DX: K04.7 Periapical abscess without sinus (principal)
CPT/HCPCS: 36415; 80053; 85025; 99282; 99283